=== PATIENT | male | born 1950 | race Caucasian/White ===

== ENCOUNTER → 2016-08-01 | Outpatient (CLI) | payer BC ==
[~2016-08-01] MED LIST: ALBU18002 INH; ALBUAER2 INH; AMLO-114 PO; ASPI-232 PO; ATV/1 PO; BUPR-79 PO; BUPR200T2 PO; CEPH500C2 PO; DRGTP100 TD; DRGTP50 TOP; DRGTP75 TD; FENT50DI19 TOP; FENT75DI2 TOP; FNTTP25 TD; FURO-85 PO; HYDR-5688 PO; HYDR4TAB78 PO; LISI-725 PO; LISI40TA PO; METO-157 PO; MULT-845 PO; OMEP40CA41 PO; OXYC-106 PO; OXYC-57 PO; PRED-301 PO; SPRIN/30 INH; SYMIN160 INH; TIOTCAP INH
[2016-08-01 07:32] LABS: PATIENT HEIGHT 180.3 cm
[2016-08-01 10:11] LABS: BUN/CREATININE RATIO 26.4 (10-20); CALCIUM 8.7 mg/dl (8.5-10.1); CREATININE 0.69 mg/dl (0.60-1.40); PHOSPHORUS 3.9 mg/dl (2.5-4.9); POTASSIUM 4.3 mmol/L (3.5-5.1)
[2016-08-01 11:06] LABS: URINE TOTAL PROTEIN CALC 721.5 mg/24 hr (0-149.1)
[2016-08-01 11:07] LABS: CREATININE 0.69 mg/dl (0.6-1.4)
[2016-08-01 15:09] LABS: URINE PROTIEN/CREAT RATIO 0.6 (0-0.2); URINE TOTAL PROTEIN 69.6 mg/dl (0-11.9)
== END ==
LOC: C.LAB 07:12
PROVIDERS: ATTEND Internal Medicine Nephrology
DX: R80.9 Proteinuria, unspecified (principal)

== ENCOUNTER → 2016-08-06 | Outpatient (CLI) | payer BC ==
--- NOTE | 2016-08-08 10:54 | CODING QUERY NO DIAGNOSIS ---
TREATMENT RENDERED WITHOUT A DIAGNOSIS To promote full compliance with coding requirements relating to patient care, physician participation is requested in all cases of senior android developer uncertainty. Please assist us with providing a diagnosis/symptom for the test(s) below: A diagnosis/symptom was not documented on your Order. A valid diagnosis/symptom is required to bill all insurances. Please remember that we are unable to code a diagnosis of rule out, probable, possible, questionable, or suspected. DATE OF SERVICE: 08/06/16 Tests that require a diagnosis: * EGFR MUTATION ALALYSIS DIAGNOSIS: * FISH MULTIPLEX MANUAL DIAGNOSIS: * FISH MULTIPLEX MANUAL DIAGNOSIS: * ONE IHC STAIN QUANT OR SEMI DIAGNOSIS: Provider Signature: Date: Thank you Cammy Resendiz [facility] Information Management Once completed, please kindly fax back to [phone] For questions please call [phone]
== END | disposition home or self-care (01) ==
LOC: C.PATHSPEC 10:00
PROVIDERS: ATTEND Internal Medicine Hematology & Oncology
DX: C34.90 Malignant neoplasm of unspecified part of unspecified bronchus or lung (principal)

== ENCOUNTER → 2016-08-28 | Outpatient (CLI) | payer BC ==
[2016-08-28 15:01] LABS: URINE APPEARANCE CLEAR (CLEAR); URINE BILIRUBIN NEG (NEG); URINE COLOR YELLOW; URINE NITRITE NEG (NEG); URINE SPECIFIC GRAVITY 1.025 (1.000-1.030); UROBILINOGEN NEG (NEG)
[2016-08-28 15:10] LABS: URINE PROTIEN/CREAT RATIO 0.2 (0-0.2); URINE TOTAL PROTEIN 36.3 mg/dl (0-11.9)
[2016-08-28 15:11] LABS: MANUAL MICROSCOPIC REQUIRED? NO; REVIEW REQ? NO
[2016-08-28 15:22] LABS: BLOOD UREA NITROGEN 19 mg/dl (7-18); BUN/CREATININE RATIO 23.2 (10-20); CALCIUM 8.5 mg/dl (8.5-10.1); CARBON DIOXIDE 31 mmol/L (21-32); CHLORIDE 107 mmol/L (98-107); CREATININE 0.84 mg/dl (0.60-1.40); GLUCOSE 98 mg/dl (70-99); PHOSPHORUS 3.6 mg/dl (2.5-4.9); POTASSIUM 4.2 mmol/L (3.5-5.1); SODIUM 143 mmol/L (136-145)
== END | disposition home or self-care (01) ==
LOC: C.LAB 13:24
PROVIDERS: ATTEND Internal Medicine Nephrology
DX: R80.9 Proteinuria, unspecified (principal)

== ENCOUNTER → 2016-09-11 | Outpatient (CLI) | payer BC ==
[2016-09-11 17:32] LABS: BLOOD UREA NITROGEN 17 mg/dl (7-18); BUN/CREATININE RATIO 23.9 (10-20); CALCIUM 8.5 mg/dl (8.5-10.1); CARBON DIOXIDE 29 mmol/L (21-32); CHLORIDE 107 mmol/L (98-107); CREATININE 0.73 mg/dl (0.60-1.40); GLUCOSE 85 mg/dl (70-99); POTASSIUM 3.9 mmol/L (3.5-5.1); SODIUM 143 mmol/L (136-145)
== END | disposition home or self-care (01) ==
LOC: C.CPL 15:17
PROVIDERS: ATTEND Surgery
DX: K40.90 Unilateral inguinal hernia, without obstruction or gangrene, not specified as recurrent (principal)

== ENCOUNTER → 2016-09-25 | Day surgery (SDC) | payer BC ==
[2016-09-13 12:01] VITALS: Ht 180.3 cm; Wt 87.3 kg
--- NOTE | 2016-09-24 08:48 | PAT Medication Instructions ---
Service Date Sep 24, 2016. Current Home Medication List Albuterol (Ventolin), 2 PUFFS INH QID Aspirin (Aspir-81), 1 TAB PO QAM Budesonide/Formoterol Fumarate (Symbicort 160/4.5 Inhaler), 2 PUFFS INH BID Bupropion (Wellbutrin Sr), 200 MG PO AM Bupropion (Wellbutrin Sr), 150 MG PO NOON Fentanyl (Fentanyl), 1 PATCH TOP Q3D Furosemide (Lasix), 20 MG PO QAM Lisinopril (Zestril), 60 MG PO QAM Multiple Vitamins W/ Minerals (Centrum Silver Adult 50+), 1 TAB PO QAM Oxycodone/Acetaminophen 5MG/325MG (Percocet 5MG/325MG), 1 TABLET PO QID PRN for Pain Tiotropium Lizella (Spiriva Handihaler), 1 CAP INH QAM Medication Instructions For Your Scheduled Surgery - Check with surgeon for instructions: Aspirin (Aspir-81), 1 TAB PO QAM - Hold the following medications the morning of surgery: Multiple Vitamins W/ Minerals (Centrum Silver Adult 50+), 1 TAB PO QAM Furosemide (Lasix), 20 MG PO QAM Lisinopril (Zestril), 60 MG PO QAM - Take the following medications the morning of surgery with a sip of water: Tiotropium Lizella (Spiriva Handihaler), 1 CAP INH QAM Albuterol (Ventolin), 2 PUFFS INH QID (bring with you to hospital AM of surgery) Budesonide/Formoterol Fumarate (Symbicort 160/4.5 Inhaler), 2 PUFFS INH BID Bupropion (Wellbutrin Sr), 200 MG PO AM Fentanyl (Fentanyl), 1 PATCH TOP Q3D (avoid surgery site location for patch placement) Oxycodone/Acetaminophen 5MG/325MG (Percocet 5MG/325MG), 1 TABLET PO QID PRN for Pain (okay to take up to take up 4 hours prior to surgery if needed) - Take the following medications as scheduled the night before surgery: Bupropion (Wellbutrin Sr), 150 MG PO NOON Albuterol (Ventolin), 2 PUFFS INH QID Budesonide/Formoterol Fumarate (Symbicort 160/4.5 Inhaler), 2 PUFFS INH BID Fentanyl (Fentanyl), 1 PATCH TOP Q3D Oxycodone/Acetaminophen 5MG/325MG (Percocet 5MG/325MG), 1 TABLET PO QID PRN for Pain (if needed) If you have any questions please call us at [phone] or [phone] or [phone]
[2016-09-24 10:53] LABS: HEMATOCRIT 36.4 % (42-52); MEAN CELL VOLUME 90.8 fL (80-100); MEAN CORPUSCULAR HEMOGLOBIN 29.4 pg (25-34); MEAN CORPUSCULAR HGB CONC 32.4 g/dl (32-36); MEAN PLATELET VOLUME 9.2 fL (7.4-10.4); PLATELET COUNT 146 K/uL (130-400); RED BLOOD COUNT 4.01 M/uL (4.7-6.1); WHITE BLOOD COUNT 4.39 K/uL (4.8-10.8)
[~2016-09-25] VITALS: Ht 180.3 cm; Wt 87.3 kg
[~2016-09-25] MED LIST changes: -AMLO-114 PO; +ATROPINE SULFATE 0.1 MG/ML 5ML SYR IV PRN; +BUPIVACAINE 0.5 % 5 MG/1 ML MPF 30ML VIAL ONE; +CEFAZOLIN 2000 MG/60 ML D5W IV SCH; +CEFAZOLIN SOD 1 GM VIAL ONE; +DEXAMETHASONE SOD INJ 4 MG/ML VIAL ONE; +EpHEDrine SULFATE INJ 50 MG/ML AMP IV PRN; +FENTANYL CITRATE INJ 50 MCG/1 ML 2 ML VIAL ONE; +FLUMAZENIL 0.1 MG/1 ML 10 ML VIAL IV PRN; +GLYCOPYRROLATE INJ 0.2 MG/ML VIAL ONE; +HYDROCODONE/ACETAMOPHEN 5/325MG TAB PO PRN; +HYDROmorphone INJ 1 MG/ML SYR IV PRN; +KETOROLAC TROMETHAMINE 30 MG/ML VIAL ONE; +LABETALOL HCL IV 5 MG/ML 20ML IV PRN; +LACTATED RINGER'S 1000ML 1,000 ML IV SCH; +LIDOCAINE HCL 2% 2 ML VIAL (20MG/ML) ONE; -LISI-725 PO; +MIDAZOLAM HCL 1 MG/ML 2ML VIAL ONE; +NALOXONE HCL 0.4 MG/1 ML VIAL/CARP IV PRN; +NEOSTIGMINE METHYLSULFATE 5 MG/5 ML SYR ONE; +ONDANSETRON INJ 2 MG/ML 2 ML VIAL IV PRN; +ONDANSETRON INJ 2 MG/ML 2 ML VIAL ONE; +PROMETHAZINE HCL INJ 12.5 MG in SODIUM CHLORIDE 0.9% 50ML 50 ML IV PRN; +PROPOFOL IV EMULSION 10 MG/ML 20 ML VIAL IV ONE; +ROCURONIUM BROMIDE 10 MG/ML 5 ML VIAL ONE; +SODIUM CHLORIDE 0.9% 1000ML 1,000 ML IV SCH; +SODIUM CHLORIDE 0.9% INJ 10 ML VIAL ONE; +SUCCINYLCHOLINE CHLORIDE 20 MG/ML 10 ML VIAL IV ONE
--- NOTE | 2016-09-25 11:59 | History & Physical Bridge Note ---
H&P Re-Evaluation Bridge Note: I have examined the patient, reviewed the History & Physical and in the interval since the performance of the History & Physical I have noted the following changes of clinical significance: No changes noted
--- NOTE | 2016-09-25 13:07 | Discharge Instructions-SurgCtr ---
Discharge Instructions Date of Service Sep 25, 2016. Visit Reason for Visit: Right Inguinal Hernia Discharge Discharge Diagnosis / Problem: Rt inguinal hernia Discharge Goals Goal(s): Decrease discomfort, Improve function, Improve disease control Activity Recommendations Activity Limitations: as noted below Exercise/Sports Limitations: until after follow-up appointment May Resume Sexual Activity: when tolerated Shower/Bathe: keep incision dry (may shower over incision in 2 days- 09/27) Driving or Machine Use: resume 3 days after discharge SPECIAL CARE INSTRUCTIONS: * Cover incisions and change daily for comfort/drainage. * Leave steri strips in place * May use ibuprofen for pain as tolerated. * Expect some swelling and bruising. Call your doctor if: * Temperature above 101 degrees * Pain not relieved by pain medicine ordered * There is increased drainage or redness from any incision * You have any unanswered questions or concerns [phone]. FOLLOW UP VISIT: If not already scheduled, please call the office for a follow-up visit. for next week- check up and some suture removal OFFICE PHONE NUMBER: Dr. Burris Office Anesthesia . Post Anesthesia Instructions: If you have had General Anesthesia or IV Sedation: * Do not drive today. * Resume driving when surgeon permits. * Do not make important decisions or sign legal documents today. * Call surgeon for: 1. Temperature elevations greater than 101 degrees F. 2. Uncontrollable pain. 3. Excessive bleeding. 4. Persistent nausea and vomiting. 5. Medication intolerance (nausea, vomiting or rash). * For nausea and vomiting use only clear liquids such as: tea, soda, bouillon until nausea subsides, then gradually increase diet as tolerated. * If you have any concerns or questions, call your surgeon's office. If physician is unavailable and it is an emergency, call 911 or go to the nearest emergency room. . Diet Recommendations Home Diet: resume previous diet Pending Studies Studies pending at discharge: no Medical Emergencies . Who to Call and When: Medical Emergencies: If at any time you feel your situation is an emergency, please call 911 immediately. . Non-Emergent Contact Non-Emergency issues call your: Primary Care Provider, Surgeon . . "Provider Documentation" section prepared by Tylor Burris. .
--- NOTE | 2016-09-25 14:21 | [facility] Post Operative Brief Note ---
Immediate Operative Summary Operative Date Sep 25, 2016. Pre-Operative Diagnosis Right Inguinal Hernia Post-Operative Diagnosis same Procedure(s) Performed Right Inguinal Hernia Open Repair with Mesh Surgeon Dr. Kristina Burris Manager Sterile Surgeon(s) Clarissa Mcgovern PA-C, Elvira Hamilton, ALONSOII Estimated Blood Loss 20CC Findings indirect Rt inguinal hernia Specimens none Anesthesia gen Complication(s) None Disposition Recovery Room / PACU
[2016-09-25] MEDS: FENTANYL CITRATE INJ 50 MCG/1 ML 2 ML VIAL IV PRN ×4 (14:47→15:07)
[2016-09-25 15:32] VITALS: TEMP 36.9
--- NOTE | 2016-09-25 15:44 | Anesthesia Progress Nt - [facility] ---
Anesthesia Post Op Note Date & Time Sep 25, 2016 at 15:43 Vital Signs Pain Intensity: 6.0 Vital Signs Past 12 Hours Date Time Temp Pulse Resp B/P (MAP) Pulse Ox O2 Delivery O2 Flow Rate FiO2 09/25/16 15:32 36.9 75 16 158/84 (108) 95 Room Air 09/25/16 15:18 69 7 100 09/25/16 15:18 69 7 09/25/16 15:17 148/80 09/25/16 15:16 36.8 68 12 148/80 99 Room Air 09/25/16 15:13 63 9 09/25/16 15:13 63 9 97 09/25/16 15:12 154/81 09/25/16 15:08 65 3 09/25/16 15:08 65 3 98 09/25/16 15:07 166/82 09/25/16 15:03 65 3 98 09/25/16 15:03 65 3 09/25/16 15:02 151/83 09/25/16 14:58 65 3 100 09/25/16 14:58 65 3 09/25/16 14:57 161/85 09/25/16 14:53 66 15 09/25/16 14:53 66 15 100 09/25/16 14:52 153/80 09/25/16 14:48 70 15 09/25/16 14:48 70 15 100 09/25/16 14:47 146/73 09/25/16 14:43 67 20 100 09/25/16 14:43 67 20 09/25/16 14:42 157/79 09/25/16 14:38 70 14 09/25/16 14:38 70 14 100 09/25/16 14:37 155/82 09/25/16 14:33 76 12 09/25/16 14:33 76 12 100 09/25/16 14:32 140/76 09/25/16 14:29 139/75 09/25/16 14:28 86 09/25/16 14:28 36.7 85 16 139/75 100 Mask 6 09/25/16 14:28 86 99 09/25/16 11:40 36.7 74 18 148/85 (106) 95 Room Air Notes Mental Status: alert / awake / arousable, participated in evaluation Pt Amnestic to Procedure: Yes Nausea / Vomiting: adequately controlled Pain: adequately controlled Airway Patency, RR, SpO2: stable & adequate BP & HR: stable & adequate Hydration State: stable & adequate Anesthetic Complications: no major complications apparent
[2016-09-25 15:45] VITALS: BP 165/90; PULSE 76; O2SAT 96
--- NOTE | 2016-09-25 16:18 | OPERATIVE REPORT ---
DATE OF OPERATION: 09/25/2016 PREOPERATIVE DIAGNOSIS: Right inguinal hernia. POSTOPERATIVE DIAGNOSIS: Same. NAME OF OPERATION: Open right inguinal hernia repair. STAFF SURGEON: Dr. Burris. ANESTHESIA: General. OPERATION AND FINDINGS: PROCEDURE: The patient was brought in the operating room and placed on the operating table in supine position. Right lower quadrant prepped and draped in the usual fashion. 0.5% plain Marcaine was used to anesthetize the skin and subcutaneous tissue. Incision made parallel to the inguinal ligament, carrying dissection down identifying the external oblique fibers incising them along their length to the external ring. Cord structures then mobilized. The patient had a large indirect hernia sac which was reduced. He had a small lipoma of the cord which was excised. The internal ring was then reinforced using a large mesh plug, secured to surrounding tissues using 2-0 Ethibond suture, then a mesh patch placed over the plug and around the cord structures secured to surrounding tissue using 2-0 Ethibond suture. The external oblique fibers were then closed around the cord structures over the mesh using 2-0 Ethibond suture. I was able to identify the ilioinguinal and iliohypogastric nerves. The site was anesthetized using 0.5% plain Marcaine and irrigated with antibiotic solution. Subcutaneous tissue was reapproximated using 2-0 plain catgut suture then the skin reapproximated using 4-0 nylon suture and Steri-Strips. The patient was transferred to recovery room in stable condition. I attest to the content of the Intraoperative Record and any orders documented therein. Any exception s are noted below.
== END | disposition home or self-care (01) ==
LOC: X.SURG 11:15
PROVIDERS: ATTEND Surgery
DX: K40.90 Unilateral inguinal hernia, without obstruction or gangrene, not specified as recurrent (principal); Z85.118 Personal history of other malignant neoplasm of bronchus and lung; I10 Essential (primary) hypertension; J44.9 Chronic obstructive pulmonary disease, unspecified; F32.9 Major depressive disorder, single episode, unspecified; F41.9 Anxiety disorder, unspecified; G47.33 Obstructive sleep apnea (adult) (pediatric); J45.909 Unspecified asthma, uncomplicated; Z90.89 Acquired absence of other organs; Z98.890 Other specified postprocedural states; Z79.82 Long term (current) use of aspirin; Z79.899 Other long term (current) drug therapy; Z87.891 Personal history of nicotine dependence; Z68.28 Body mass index [BMI] 28.0-28.9, adult; Z82.49 Family history of ischemic heart disease and other diseases of the circulatory system; Z83.3 Family history of diabetes mellitus

== ENCOUNTER → 2016-10-03 | Outpatient (CLI) | payer BC ==
[~2016-10-03] MED LIST changes: -ATROPINE SULFATE 0.1 MG/ML 5ML SYR IV PRN; -BUPIVACAINE 0.5 % 5 MG/1 ML MPF 30ML VIAL ONE; -CEFAZOLIN 2000 MG/60 ML D5W IV SCH; -CEFAZOLIN SOD 1 GM VIAL ONE; -DEXAMETHASONE SOD INJ 4 MG/ML VIAL ONE; -EpHEDrine SULFATE INJ 50 MG/ML AMP IV PRN; -FENTANYL CITRATE INJ 50 MCG/1 ML 2 ML VIAL ONE; -FLUMAZENIL 0.1 MG/1 ML 10 ML VIAL IV PRN; -GLYCOPYRROLATE INJ 0.2 MG/ML VIAL ONE; -HYDROCODONE/ACETAMOPHEN 5/325MG TAB PO PRN; -HYDROmorphone INJ 1 MG/ML SYR IV PRN; -KETOROLAC TROMETHAMINE 30 MG/ML VIAL ONE; -LABETALOL HCL IV 5 MG/ML 20ML IV PRN; -LACTATED RINGER'S 1000ML 1,000 ML IV SCH; -LIDOCAINE HCL 2% 2 ML VIAL (20MG/ML) ONE; -MIDAZOLAM HCL 1 MG/ML 2ML VIAL ONE; -NALOXONE HCL 0.4 MG/1 ML VIAL/CARP IV PRN; -NEOSTIGMINE METHYLSULFATE 5 MG/5 ML SYR ONE; -ONDANSETRON INJ 2 MG/ML 2 ML VIAL IV PRN; -ONDANSETRON INJ 2 MG/ML 2 ML VIAL ONE; -PROMETHAZINE HCL INJ 12.5 MG in SODIUM CHLORIDE 0.9% 50ML 50 ML IV PRN; -PROPOFOL IV EMULSION 10 MG/ML 20 ML VIAL IV ONE; -ROCURONIUM BROMIDE 10 MG/ML 5 ML VIAL ONE; -SODIUM CHLORIDE 0.9% 1000ML 1,000 ML IV SCH; -SODIUM CHLORIDE 0.9% INJ 10 ML VIAL ONE; -SUCCINYLCHOLINE CHLORIDE 20 MG/ML 10 ML VIAL IV ONE
--- NOTE | 2016-10-03 12:46 | DIAGNOSTIC IMAGING REPORT ---
PET/CT CLINICAL HISTORY: Non-small cell lung cancer. TECHNIQUE: A PET/CT was performed from the skull base through the upper thighs following intravenous injection of 14.67 mCi of F 18 FDG IV. The injection was performed at 8:59 AM on October 03, 2016 and imaging began at 10:00 AM on October 03, 2016. Unenhanced CT was performed for attenuation correction purposes and anatomic localization. COMPARISON STUDY: PET/CT April 09, [address] November 29, 2015. FINDINGS: Head and neck: There is multifocal muscular uptake within the neck. Several mildly enlarged left lower cervical lymph nodes have increased in size since exam of April 09, 2016. An index 1.3 cm left lower cervical node shown image 44 has mild FDG uptake. The SUV max is 4.1. Chest: The previously described mass within the anterior aspect of the left upper lobe has significantly increased in size since exam April 09, 2016. The mass now measures 2.9 x 2 cm and has an SUV max of 6.4. Several satellite nodules within the left upper lobe measuring up to 8 mm have developed. There is a new 7 mm left lower lobe nodule shown image 92. The findings reflect progression of malignancy. There is a 9 mm endobronchial abnormality at the masoud with no significant FDG uptake. There is no pneumothorax. There is no pleural effusion. The heart is moderately enlarged. Dilatation of the ascending aorta, measuring 4.3 cm is unchanged. Several prevascular lymph nodes have slightly increased in size. These measure up to 9 mm and have mild FDG uptake. Mild left pleural thickening is noted with minimal FDG uptake. Abdomen and Pelvis: No suspicious FDG uptake is identified within the abdomen or the pelvis. There is no abdominal or pelvic lymphadenopathy. The gallbladder is distended. This is unchanged. There are postsurgical findings consistent with a right inguinal hernia repair with suspected mesh. Mild FDG uptake is noted within SUV max of 2.8. Musculoskeletal: There is been interval development of a 2.5 cm lytic lesion within the right humeral head. Evidence for a previous right rotator cuff repair is noted. There is marked associated FDG uptake with an SUV max of 8.3. In addition, there is moderate FDG uptake within the left aspect of C7 with an SUV max of 5.3. There is corresponding sclerosis on the CT. There is also moderate FDG uptake within the right aspect of the C6 vertebral body with an SUV max of 4.8. This has developed since prior exam. IMPRESSION: 1. Findings consistent with extensive recurrent malignancy since PET/CT of April 09, 2016. Increase in size of a 3.5 cm left upper lobe mass with development of multiple small pulmonary metastases. Development of left lower cervical and prevascular pathologic lymphadenopathy. 2. Interval development of several FDG avid skeletal lesions involving the right humeral head and lower cervical spine consistent with skeletal metastases. 3. Findings consistent with recent right inguinal hernia repair. Electronically signed by: Jasbir Rivera M.D. 10/03/2016 12:45 PM Dictated Date/Time: 10/03/2016 11:34 AM
== END | disposition home or self-care (01) ==
LOC: C.PET 08:23
PROVIDERS: ATTEND Internal Medicine Hematology & Oncology
DX: C34.90 Malignant neoplasm of unspecified part of unspecified bronchus or lung (principal); R59.0 Localized enlarged lymph nodes; R93.7 Abnormal findings on diagnostic imaging of other parts of musculoskeletal system

== ENCOUNTER → 2016-10-08 | Outpatient (CLI) | payer BC ==
[~2016-10-08] MED LIST changes: +OPTIRAY 320 IV PRN
--- NOTE | 2016-10-08 09:45 | DIAGNOSTIC IMAGING REPORT ---
CT SCAN OF THE CHEST WITH IV CONTRAST CLINICAL HISTORY: Follow-up lung cancer. COMPARISON STUDY: Chest CT scans dated 11/29/2015 and 06/30/2015. PET/CT dated 10/03/2006. TECHNIQUE: Following the IV administration of 118 cc of Optiray 320, CT scan of the thorax was performed from the thoracic inlet to the upper abdomen. Images are reviewed in the axial, sagittal, and coronal planes. IV contrast was administered without complication. CT DOSE: 935.08 mGy.cm FINDINGS: Thyroid: Imaged portions of the thyroid gland are normal in size and attenuation. Thoracic aorta: There is atherosclerotic calcification of the thoracic aorta, which is normal in caliber and demonstrates standard 3-vessel arch anatomy. No dissection is seen. A right subclavian central venous infusion port is in place. Pulmonary vasculature: The pulmonary trunk is dilated, measuring 4.5 cm in diameter. This indication pulmonary artery hypertension. There are no filling defects identified in the central pulmonary vessels to indicate pulmonary embolus. Note that this examination was not protocoled for evaluation of the pulmonary arteries. Heart: The heart is top normal in size and without pericardial effusion. Coronary arteries are densely calcified. Lungs and pleural spaces: The trachea and central airways are clear. Emphysema is noted. No airspace consolidation is seen typical for pneumonia and there is no pleural effusion. There are postoperative changes from left lower lobe resection elevation of the left hemidiaphragm and scarring at the left lung base. An anterior paramediastinal lesion in the left upper lobe measures 4.3 x 2.1 cm as seen on image #102. An additional 1.2 cm left upper lobe nodule is seen on image #87. A 9 mm pleural-based nodule at the posterior left lung base as seen on image #177. No right sided lesions are identified, Mediastinum: There are enlarged prevascular lymph nodes. Largest is seen on image #103, measuring 1.3 cm in short axis. Tamiko: Clear. Axillae: There is no axillary lymphadenopathy. Upper abdomen: There is a tiny hiatal hernia. Partially visualized upper abdominal viscera is within normal limits. See report of abdominal CT performed concurrently for detailed intra-abdominal findings. Skeletal structures: The skeletal structures are osteopenic. No lytic or blastic bony lesions are seen. IMPRESSION: 1. Emphysema with postoperative change from left-sided pulmonary resection. 2. Again seen is a left upper lobe paramediastinal mass lesion, with additional nodules in the left upper lobe and at the posterior left lung base. This is consistent with recurrent/metastatic disease and has not significantly changed from the PET/CT performed 5 days previously. 3. Mediastinal lymphadenopathy is unchanged and consistent with metastatic disease. 4. No airspace consolidation is seen typical for pneumonia and there is no pleural effusion. 5. Findings are consistent with pulmonary artery hypertension. 6. Additional changes as above. Electronically signed by: Boone Cavazos M.D. 10/08/2016 9:44 AM Dictated Date/Time: 10/08/2016 9:24 AM
--- NOTE | 2016-10-08 09:48 | DIAGNOSTIC IMAGING REPORT ---
ABDOMEN AND PELVIS CT WITH IV AND ORAL CONTRAST CT DOSE: HISTORY: Small cell lung cancer. TECHNIQUE: Multiaxial CT images of the abdomen and pelvis were performed following the use of intravenous and oral contrast. COMPARISON STUDY: Abdomen and pelvis CT 06/17/2015. PET CT 10/03/2016. FINDINGS: The gallbladder remains mildly distended. No evidence of a prior right inguinal hernia repair, unchanged. Left lower lobe basilar nodules are better present the same day chest CT. Mild elevation the left hemidiaphragm. No suspicious lytic or blastic osseous lesions. No hepatic or splenic masses. Stable mild nodular thickening of the left adrenal gland. Normal right adrenal gland. The kidneys enhance normally. No hydronephrosis. Normal pancreas. No retroperitoneal or mesenteric lymphadenopathy. The bladder is mildly distended. The prostate gland is mildly enlarged. No bowel wall thickening or obstruction. A few colonic diverticula. Moderate stool within the colon. IMPRESSION: 1. No evidence for metastatic disease within the abdomen or pelvis. 2. Left lung nodules are better appreciated on the same day chest CT. 3. Distended gallbladder, unchanged. Electronically signed by: Fabien Adames M.D. 10/08/2016 9:47 AM Dictated Date/Time: 10/08/2016 9:32 AM
== END | disposition home or self-care (01) ==
LOC: C.CTS 08:25
PROVIDERS: ATTEND Internal Medicine Hematology & Oncology
DX: C34.90 Malignant neoplasm of unspecified part of unspecified bronchus or lung (principal); R91.8 Other nonspecific abnormal finding of lung field; K82.8 Other specified diseases of gallbladder; J43.9 Emphysema, unspecified; R59.1 Generalized enlarged lymph nodes

== ENCOUNTER 2016-12-09 12:06 | Inpatient (IN) | payer BC ==
[~2016-12-09] VITALS: Ht 180.3 cm; Wt 91.6 kg
[~2016-12-09 12:06] MED LIST changes: -ALBU18002 INH; -ATV/1 PO; -CEPH500C2 PO; -DRGTP100 TD; -DRGTP50 TOP; -DRGTP75 TD; -FENT50DI19 TOP; -FNTTP25 TD; -HYDR-5688 PO; -HYDR4TAB78 PO; -METO-157 PO; -OMEP40CA41 PO; -OPTIRAY 320 IV PRN; -OXYC-57 PO; -PRED-301 PO; -SPRIN/30 INH
[2016-12-09] MEDS ORDERED: SODIUM CHLORIDE 0.9% 1000ML 1,000 ML IV ONE (12:52)
--- NOTE | 2016-12-09 13:04 | EMERGENCY ROOM VISIT NOTE ---
History Report prepared by [facility]: Caitlin Godoy Under the Supervision of: Dr. Nikos Babin D.O. First contact with patient: 12:41 Chief Complaint: FEVER Stated Complaint: FEVER,CHILLS,ACHES,ANKLE/FEET SWELLING, RASH History of Present Illness The patient is a 66 year old male who presents to the Emergency Room with complaints of a constant fever beginning 2 days ago. The patient states that 2 days ago he developed a fever of 100.4 and notes that he had chills and body aches. He reports that he has a history of lung cancer and is currently being treated with chemotherapy. He notes that he has been having shortness of breath , productive cough, and ankle swelling that developed after his last chemotherapy treatment 10 days ago. The patient states that he has a rash over the left shoulder from his radiation treatment. He denies any diarrhea, hematochezia, and sick contacts. The patient's notes that his temperature was 99.7 this morning. Source of History: patient Onset: 2 days ago Position: other (global) Quality: other (fever) Timing: constant Associated Symptoms: + cough, + SOB, + rash, No diarrhea Note: Pt notes ankle swelling that developed after his last chemotherapy treatment 10 days ago. He denies any hematochezia, and sick contacts. Review of Systems See HPI for pertinent positives & negatives. A total of 10 systems reviewed and were otherwise negative. Past Medical & Surgical Medical Problems: (1) Depression (2) Elevated troponin (3) Lung mass (4) Shortness of breath Family History FH: diabetes mellitus FH: heart disease Gallbladder disease Social History Smoking Status: Former Smoker Alcohol Use: occasionally Marital Status: Housing Status: lives with family Current/Historical Medications Scheduled Aspirin (Aspir-81), 1 TAB PO QAM Budesonide/Formoterol Fumarate (Symbicort 160/4.5 Inhaler), 2 PUFFS INH BID Bupropion (Wellbutrin Sr), 200 MG PO AM Bupropion (Wellbutrin Sr), 150 MG PO NOON Fentanyl (Fentanyl), 1 PATCH TD Q3D Fentanyl (Fentanyl), 1 PATCH TD Q3D Furosemide (Lasix), 20 MG PO QAM Lisinopril (Zestril), 60 MG PO QAM Multiple Vitamins W/ Minerals (Centrum Silver Adult 50+), 1 TAB PO QAM Oxycodone/Acetaminophen 10MG/325MG (Percocet 10MG/325MG), 1 TAB PO Q6H Tiotropium [place] (Spiriva Handihaler), 1 CAP INH DAILY Scheduled PRN Albuterol Sulfate (Proair Respiclick), 1 PUFF INH QID PRN for SOB/Wheezing Allergies Coded Allergies: Iodinated Diagnostic Agents (Verified Adverse Reaction, Intermediate, Muscle cramping - cardiac stress test dye, 12/09/16) Physical Exam Vital Signs Date Time Temp Pulse Resp B/P (MAP) Pulse Ox O2 Delivery O2 Flow Rate FiO2 12/09/16 16:09 82 17 116/58 93 Room Air 12/09/16 15:26 85 20 148/58 12/09/16 14:08 87 12/09/16 14:05 88 21 133/74 96 Room Air 12/09/16 13:12 Room Air 12/09/16 12:07 37.0 92 20 114/74 95 Physical Exam GENERAL: Patient is awake, alert, and in no acute distress. Patient is resting comfortably and showing no signs of anxiety EYES: The conjunctivae are clear. The pupils are round and reactive. EARS, NOSE, MOUTH AND THROAT: The nose is without any evidence of any deformity. Mucous membranes are moist tongue is midline NECK: The neck is nontender and supple. RESPIRATORY: Diminished breath sounds throughout, scattered rhonchi, absent breath sounds in the left base, mild tachypnea. CARDIOVASCULAR: Regular rate and rhythm noted there no murmurs rubs or gallops normal S1 normal S2 GASTROINTESTINAL: The abdomen is soft. Bowel sounds are present in all quadrants. Abdomen is nontender MUSCULOSKELETAL/EXTREMITIES: There is no evidence of gross deformity full range of motion is noted in the hips and shoulders SKIN: There is no obvious evidence of any rash. There are no petechiae, pallor or cyanosis noted. Pedal edema bilaterally, erythema to the anterior left shoulder that extends over the right chest wall Mediport. NEUROLOGIC: Patient is awake alert and oriented x3 Medical Decision & Procedures ER Provider Diagnostic Interpretation: X-ray results as stated below per interpretation by me and the radiologist. SINGLE VIEW CHEST FINDINGS: An AP, portable, upright chest radiograph is compared to study dated 08/25/2015 and correlated with chest CT dated 10/08/2016. The examination is degraded by portable technique and patient rotation. A right subclavian central venous infusion port is unchanged in position. The heart is top normal for projection. The pulmonary vasculature is noncongested. Emphysema and chronic interstitial thickening are again noted. Findings consistent with left-sided pulmonary resection. There is associated chronic elevation of left hemidiaphragm with left basilar scarring. This is similar to previous. A left suprahilar mass lesion is unchanged from previous. There is no evidence of superimposed airspace consolidation or pleural effusion. No pneumothorax is seen. The skeletal structures are osteopenic. The bony thorax is grossly intact. IMPRESSION: 1. No acute cardiopulmonary abnormality. 2. Emphysema, a left suprahilar pulmonary mass, postoperative change, and chronic change at the left lung base are similar to previous.. Electronically signed by: Boone Cavazos M.D. 12/09/2016 1:24 PM Dictated Date/Time: 12/09/2016 1:21 PM Laboratory Results 12/09/16 13:52 Red Blood Count 3.58, Mean Corpuscular Volume 91.3, Mean Corpuscular Hemoglobin 29.1, Mean Corpuscular Hemoglobin Concent 31.8, Mean Platelet Volume 8.7, Neutrophils (%) (Auto) 82.2, Lymphocytes (%) (Auto) 8.0, Monocytes (%) (Auto) 7.6, Eosinophils (%) (Auto) 1.6, Basophils (%) (Auto) 0.2, Neutrophils # (Auto) 3.99, Lymphocytes # (Auto) 0.39, Monocytes # (Auto) 0.37, Eosinophils # (Auto) 0.08, Basophils # (Auto) 0.01 12/09/16 13:52 Test 12/09/16 13:43 12/09/16 13:52 12/09/16 14:00 12/09/16 15:20 Venous Blood pH 7.42 (7.36-7.41) Venous Blood Partial Pressure CO2 50 mmHg (38.0-50.0) Venous Blood Partial Pressure O2 17 mmHg Venous Blood HCO3 32 mmol/L Venous Blood Oxygen Saturation < 60.0 % Venous Blood Base Excess 6.4 mEq/L White Blood Count 4.86 K/uL (4.8-10.8) Red Blood Count 3.58 M/uL (4.7-6.1) Hemoglobin 10.4 g/dL (14.0-18.0) Hematocrit 32.7 % (42-52) Mean Corpuscular Volume 91.3 fL (80-100) Mean Corpuscular Hemoglobin 29.1 pg (25-34) Mean Corpuscular Hemoglobin Concent 31.8 g/dl (32-36) Platelet Count 171 K/uL (130-400) Mean Platelet Volume 8.7 fL (7.4-10.4) Neutrophils (%) (Auto) 82.2 % Lymphocytes (%) (Auto) 8.0 % Monocytes (%) (Auto) 7.6 % Eosinophils (%) (Auto) 1.6 % Basophils (%) (Auto) 0.2 % Neutrophils # (Auto) 3.99 K/uL (1.4-6.5) Lymphocytes # (Auto) 0.39 K/uL (1.2-3.4) Monocytes # (Auto) 0.37 K/uL (0.11-0.59) Eosinophils # (Auto) 0.08 K/uL (0-0.5) Basophils # (Auto) 0.01 K/uL (0-0.2) RDW Standard Deviation 51.7 fL (36.4-46.3) RDW Coefficient of Variation 15.4 % (11.5-14.5) Immature Granulocyte % (Auto) 0.4 % Immature Granulocyte # (Auto) 0.02 K/uL (0.00-0.02) Erythrocyte Sedimentation Rate 27 mm/hr (0-14) Prothrombin Time 11.4 SECONDS (9.0-12.0) Prothromb Time International Ratio 1.1 (0.9-1.1) Activated Partial Thromboplast Time 29.2 SECONDS (21.0-31.0) Partial Thromboplastin Ratio 1.1 Anion Gap 6.0 mmol/L (3-11) Est Creatinine Clear Calc Drug Dose 108.8 ml/min Estimated GFR () 113.6 Estimated GFR (Non- 98.0 BUN/Creatinine Ratio 19.3 (10-20) Calcium Level 8.6 mg/dl (8.5-10.1) Magnesium Level 2.0 mg/dl (1.8-2.4) Total Bilirubin 0.3 mg/dl (0.2-1) Aspartate Amino Transf (AST/SGOT) 18 U/L (15-37) Alanine Aminotransferase (ALT/SGPT) 20 U/L (12-78) Alkaline Phosphatase 77 U/L (45-117) Total Creatine Kinase 179 U/L (39-308) Creatine Kinase MB 13.0 ng/ml (0.5-3.6) Creatine Kinase MB Ratio 7.3 (0-3.0) Troponin I 0.060 ng/ml (0-0.045) C-Reactive Protein 14.40 mg/dl (0-0.29) Total Protein 6.9 gm/dl (6.4-8.2) Albumin 3.1 gm/dl (3.4-5.0) Globulin 3.8 gm/dl (2.5-4.0) Albumin/Globulin Ratio 0.8 (0.9-2) Lipase 51 U/L (73-393) Bedside Lactic Acid Venous 0.84 mmol/L (0.90-1.70) Urine Color YELLOW Urine Appearance CLEAR (CLEAR) Urine pH 6.0 (4.5-7.5) Urine Specific [place] 1.024 (1.000-1.030) Urine Protein NEG (NEG) Urine Glucose (UA) NEG (NEG) Urine Ketones NEG (NEG) Urine Occult Blood NEG (NEG) Urine Nitrite NEG (NEG) Urine Bilirubin NEG (NEG) Urine Urobilinogen NEG (NEG) Urine Leukocyte Esterase NEG (NEG) Urine WBC (Auto) 1-5 /hpf (0-5) Urine RBC (Auto) 0-4 /hpf (0-4) Urine Hyaline Casts (Auto) 1-5 /lpf (0-5) Urine Epithelial Cells (Auto) 0-5 /lpf (0-5) Urine Bacteria (Auto) NEG (NEG) Laboratory results per my review. Medications Administered Medications (Trade) Dose Ordered Sig/Tila Route Start Time Stop Time Status Last Admin Dose Admin Sodium Chloride 1,000 ml @ 999 mls/hr Q1H1M ONCE IV 12/09/16 12:52 12/09/16 13:52 DC 12/09/16 12:52 999 MLS/HR Ceftriaxone Sodium (Rocephin Inj) 1 gm NOW STAT IV 12/09/16 16:45 12/09/16 16:46 DC 12/09/16 17:07 1 GM ECG Indication: weakness Rate (beats per minute): 77 Rhythm: normal sinus Findings: no ectopy, other (no ST segment abnormalities) ED Course 1241: The patient was evaluated in room C2. A complete history and physical examination were performed. 1252: NSS 1,000 ml @ 999 mls/hr IV. 1644: I discussed the patient's case with Dr. Markham of [facility]. The patient will be evaluated for further management. 1645: Rocephin Inj 1gm IV. 1658: Upon reevaluation, the patient is doing well. I discussed results and treatment plan with the patient. He verbalizes agreement and understanding. I spoke with Dr. Markham of the [facility]. The patient will be evaluated for further management and care. Medical Decision Differential diagnosis: Etiologies such as viral syndrome, otitis, pharyngitis, pneumonia, influenza, meningitis, urinary tract infection, sepsis, bacteremia, as well as others were entertained. The patient is a 66-year-old female who presented to the emergency department with a family member for an evaluation of fever and rash over the right chest wall. The patient has an indwelling port for chemotherapy. The erythema appears to extend over this area. He does have a history of radiation to this area but states the symptoms appeared different at this time. The patient was given IV antibiotics IV fluids in the emergency department. I discussed patient's laboratory and radiographic studies with him. No other source for this fever could be found so I do feel this could be consistent with cellulitis. For this reason I discussed his case with the on-call [facility] hospitalist group. They've agreed to evaluate the patient in the emergency department for further management and disposition. Medication Reconcilliation Current Medication List: was personally reviewed by me Blood Pressure Screening Patient's blood pressure: Normal blood pressure Blood pressure disposition: Did not require urgent referral Consults Time Called: 1640 Consulting Physician: Dr. Markham - [facility] Returned Call: 1644 I discussed the patient's case with Dr. Markham of [facility]. The patient will be evaluated for further management. Impression Primary Impression: Fever Additional Impressions: Cellulitis of shoulder cellulitis overlying indwelling port Scribe Attestation The scribe's documentation has been prepared under my direction and personally reviewed by me in its entirety. I confirm that the note above accurately reflects all work, treatment, procedures, and medical decision making performed by me. Departure Information Dispostion Being Evaluated By Hospitalist Referrals Lesa Jimenez D.O. (PCP) Patient Instructions My [facility] Problem Qualifiers
--- NOTE | 2016-12-09 13:26 | DIAGNOSTIC IMAGING REPORT ---
SINGLE VIEW CHEST CLINICAL HISTORY: Sepsis. FINDINGS: An AP, portable, upright chest radiograph is compared to study dated 08/25/2015 and correlated with chest CT dated 10/08/2016. The examination is degraded by portable technique and patient rotation. A right subclavian central venous infusion port is unchanged in position. The heart is top normal for projection. The pulmonary vasculature is noncongested. Emphysema and chronic interstitial thickening are again noted. Findings consistent with left-sided pulmonary resection. There is associated chronic elevation of left hemidiaphragm with left basilar scarring. This is similar to previous. A left suprahilar mass lesion is unchanged from previous. There is no evidence of superimposed airspace consolidation or pleural effusion. No pneumothorax is seen. The skeletal structures are osteopenic. The bony thorax is grossly intact. IMPRESSION: 1. No acute cardiopulmonary abnormality. 2. Emphysema, a left suprahilar pulmonary mass, postoperative change, and chronic change at the left lung base are similar to previous.. Electronically signed by: Boone Cavazos M.D. 12/09/2016 1:24 PM Dictated Date/Time: 12/09/2016 1:21 PM
[2016-12-09] MEDS ORDERED: ALBU18002 INH (13:34)
[2016-12-09] MEDS ORDERED: FNTTP25 TD (13:34)
[2016-12-09] MEDS ORDERED: DRGTP100 TD (13:34)
[2016-12-09] MEDS ORDERED: SPRIN/30 INH (13:34)
[2016-12-09 14:00] LABS: VEN BLOOD GAS BASE EXCESS 6.4 mEq/L; VENOUS BLOOD GAS PCO2 50 mmHg (38.0-50.0); VENOUS BLOOD GAS PO2 17 mmHg
[2016-12-09 14:01] LABS: VEN BLD GAS O2 SATURATION < 60.0 %
[2016-12-09 14:08] LABS: BASO % 0.2 %; BASO ABS # 0.01 K/uL (0-0.2); COMPLETE YES; EOS % 1.6 %; HEMATOCRIT 32.7 % (42-52); IG% 0.4 %; LYMPH ABS # 0.39 K/uL (1.2-3.4); MEAN CELL VOLUME 91.3 fL (80-100); MEAN CORPUSCULAR HEMOGLOBIN 29.1 pg (25-34); MEAN CORPUSCULAR HGB CONC 31.8 g/dl (32-36); MEAN PLATELET VOLUME 8.7 fL (7.4-10.4); MONO % 7.6 %; NEUT % 82.2 %; PLATELET COUNT 171 K/uL (130-400); RED BLOOD COUNT 3.58 M/uL (4.7-6.1); WHITE BLOOD COUNT 4.86 K/uL (4.8-10.8)
[2016-12-09 14:17] LABS: INR 1.1 (0.9-1.1); PARTIAL THROMBOPLASTIN RATIO 1.1; PROTHROMBIN TIME (PATIENT) 11.4 SECONDS (9.0-12.0)
[2016-12-09 14:26] LABS: BUN/CREATININE RATIO 19.3 (10-20); C-REACTIVE PROTEIN 14.4 mg/dl (0-0.29); CALCIUM 8.6 mg/dl (8.5-10.1); CREATININE 0.73 mg/dl (0.60-1.40); POTASSIUM 3.9 mmol/L (3.5-5.1)
[2016-12-09 14:32] LABS: ALB/GLOB RATIO 0.8 (0.9-2); CKMB/CK RATIO 7.3 (0-3.0)
[2016-12-09 16:05] LABS: URINE APPEARANCE CLEAR (CLEAR); URINE BILIRUBIN NEG (NEG); URINE COLOR YELLOW; URINE EPITHELIAL CELL AUTO 0-5 /lpf (0-5); URINE NITRITE NEG (NEG); URINE SPECIFIC GRAVITY 1.024 (1.000-1.030); UROBILINOGEN NEG (NEG); ZZUR CULT IF INDIC CLEAN CATCH NO
[2016-12-09 16:06] LABS: MANUAL MICROSCOPIC REQUIRED? NO; REVIEW REQ? NO
[2016-12-09] MEDS ORDERED: CEFTRIAXONE SOD INJ 1 GM ADDVIAL IV STA (16:45)
[2016-12-09] MEDS ORDERED: MAGNESIUM HYDROXIDE SUSP 30 ML UDC PO PRN (18:15)
[2016-12-09] MEDS ORDERED: ONDANSETRON INJ 2 MG/ML 2 ML VIAL IV PRN (18:15)
[2016-12-09] MEDS ORDERED: ACETAMINOPHEN 325 MG TAB PO PRN (18:15)
[2016-12-09] MEDS ORDERED: ALUMINUM/MAGNESIUM/SIMETH (MAALOX MAX) 30 ML UDC PO PRN (18:15)
[2016-12-09] MEDS ORDERED: OXYCODONE/ACETAMINOPHEN 10/325MG TAB PO PRN (18:15)
[2016-12-09] MEDS ORDERED: ENOXAPARIN 40 MG/0.4 ML SYR SC SCH (18:30)
--- NOTE | 2016-12-09 18:30 | History and Physical ---
History & Physical Date & Time of Service: Dec 09, 2016 at 18:23 Chief Complaint: Fever,Chills,Aches,Ankle/Feet Swelling, Rash Primary Care Physician: Lesa Jimenez D.O. History of Present Illness This patient presents with fevers and not quite feeling well. He is approximately 10 days out from his most recent chemotherapy for when she is being treated for lung cancer. He also has had radiation therapy to his left chest in the area has a port. The patient states that he has had no other symptoms other than some dental work done over the last few days. He's had a cough which is normal for him no increase in productivity. He's had some recent constipation but he takes chronic opiate therapy and his salt this with [id number] stool softeners. He has had no focal abdominal pain no dysuria or urinary frequency has had no other skin rashes or changes. He is overall feels fatigued and had a fever at home. There was some initial concern regarding the area of skin surrounding the a port site this appears to be more like ideation dermatitis than true cellulitis to me. There is no tenderness or fluctuance over the a port site interestingly though the patient was found have a fairly significant new heart murmur his last echocardiogram from 2016 does not mention this in the patient says he has never been told he had a heart murmur before this raises my concern for possible endocarditis since she does have a venous access device. Family History FH: diabetes mellitus FH: heart disease Gallbladder disease Social History Smoking Status: Former Smoker Marital Status: Multi-Drug Resistant Organisms History of MDRO: No Allergies Coded Allergies: Iodinated Diagnostic Agents (Verified Adverse Reaction, Intermediate, Muscle cramping - cardiac stress test dye, 12/09/16) Home Medications Scheduled Aspirin (Aspir-81), 1 TAB PO QAM Budesonide/Formoterol Fumarate (Symbicort 160/4.5 Inhaler), 2 PUFFS INH BID Bupropion (Wellbutrin Sr), 200 MG PO AM Bupropion (Wellbutrin Sr), 150 MG PO NOON Fentanyl (Fentanyl), 1 PATCH TD Q3D Fentanyl (Fentanyl), 1 PATCH TD Q3D Furosemide (Lasix), 20 MG PO QAM Lisinopril (Zestril), 60 MG PO QAM Multiple Vitamins W/ Minerals (Centrum Silver Adult 50+), 1 TAB PO QAM Oxycodone/Acetaminophen 10MG/325MG (Percocet 10MG/325MG), 1 TAB PO Q6H Tiotropium [place] (Spiriva Handihaler), 1 CAP INH DAILY Scheduled PRN Albuterol Sulfate (Proair Respiclick), 1 PUFF INH QID PRN for SOB/Wheezing Review of Systems ROS: well nourished well developed he feels sort of out of it mild pain due to him missing his Percocet and generally feeling ill No double vision blurry vision No problems with speech or swallowing No palpitations, chest pain or pressure No Wheezing or breathing issues other than his typical baseline COPD and cough No abdominal pain nausea vomiting mild constipation but no diarrhea changes in appetite or weight No burning urine urine frequency or changes in color focal joint pain in his neck this is chronic or muscle pain No skin rashes or oral lesions No unusual bruising or bleeding No focused back pain or numbness or loss of strength No changes in memory or confusion Physical Exam Vital Signs Date Time Temp Pulse Resp B/P (MAP) Pulse Ox O2 Delivery O2 Flow Rate FiO2 12/09/16 16:09 82 17 116/58 93 Room Air 12/09/16 15:26 85 20 148/58 12/09/16 14:08 87 12/09/16 14:05 88 21 133/74 96 Room Air 12/09/16 13:12 Room Air 12/09/16 12:07 37.0 92 20 114/74 95 General Appearance: WD/WN, + mild distress Head: normocephalic, atraumatic Eyes: PERRL, EOMI ENT: hearing grossly normal, pharynx normal Neck: supple, no JVD, trachea midline Respiratory/Chest: chest non-tender, + decreased breath sounds, + pertinent finding (poor air movement) Cardiovascular: regular rate, rhythm, + systolic murmur (loud murmur heard throughout the base of the heart) Abdomen/GI: normal bowel sounds, non tender, soft Back: no CVA tenderness, no muscle spasm Extremities/Musculoskelatal: no pedal edema, normal range of motion Neurologic/Psych: alert, oriented x 3 Skin: + pertinent finding (there is a mild erythema over his right upper chest and a port area) Diagnostics Laboratory Results Results Past 24 Hours Test 12/09/16 13:43 12/09/16 13:52 12/09/16 14:00 12/09/16 15:20 Range/Units Venous Blood pH 7.42 7.36-7.41 Venous Blood Partial Pressure CO2 50 38.0-50.0 mmHg Venous Blood Partial Pressure O2 17 mmHg Venous Blood HCO3 32 mmol/L Venous Blood Oxygen Saturation < 60.0 % Venous Blood Base Excess 6.4 mEq/L White Blood Count 4.86 4.8-10.8 K/uL Red Blood Count 3.58 4.7-6.1 M/uL Hemoglobin 10.4 14.0-18.0 g/dL Hematocrit 32.7 42-52 % Mean Corpuscular Volume 91.3 80-100 fL Mean Corpuscular Hemoglobin 29.1 25-34 pg Mean Corpuscular Hemoglobin Concent 31.8 32-36 g/dl Platelet Count 171 130-400 K/uL Mean Platelet Volume 8.7 7.4-10.4 fL Neutrophils (%) (Auto) 82.2 % Lymphocytes (%) (Auto) 8.0 % Monocytes (%) (Auto) 7.6 % Eosinophils (%) (Auto) 1.6 % Basophils (%) (Auto) 0.2 % Neutrophils # (Auto) 3.99 1.4-6.5 K/uL Lymphocytes # (Auto) 0.39 1.2-3.4 K/uL Monocytes # (Auto) 0.37 0.11-0.59 K/uL Eosinophils # (Auto) 0.08 0-0.5 K/uL Basophils # (Auto) 0.01 0-0.2 K/uL RDW Standard Deviation 51.7 36.4-46.3 fL RDW Coefficient of Variation 15.4 11.5-14.5 % Immature Granulocyte % (Auto) 0.4 % Immature Granulocyte # (Auto) 0.02 0.00-0.02 K/uL Erythrocyte Sedimentation Rate 27 0-14 mm/hr Prothrombin Time 11.4 9.0-12.0 SECONDS Prothromb Time International Ratio 1.1 0.9-1.1 Activated Partial Thromboplast Time 29.2 21.0-31.0 SECONDS Partial Thromboplastin Ratio 1.1 Sodium Level 139 136-145 mmol/L Potassium Level 3.9 3.5-5.1 mmol/L Chloride Level 102 98-107 mmol/L Carbon Dioxide Level 31 21-32 mmol/L Anion Gap 6.0 3-11 mmol/L Blood Urea Nitrogen 14 7-18 mg/dl Creatinine 0.73 0.60-1.40 mg/dl Est Creatinine Clear Calc Drug Dose 108.8 ml/min Estimated GFR () 113.6 Estimated GFR (Non- 98.0 BUN/Creatinine Ratio 19.3 10-20 Random Glucose 110 70-99 mg/dl Calcium Level 8.6 8.5-10.1 mg/dl Magnesium Level 2.0 1.8-2.4 mg/dl Total Bilirubin 0.3 0.2-1 mg/dl Aspartate Amino Transf (AST/SGOT) 18 15-37 U/L Alanine Aminotransferase (ALT/SGPT) 20 12-78 U/L Alkaline Phosphatase 77 45-117 U/L Total Creatine Kinase 179 39-308 U/L Creatine Kinase MB 13.0 0.5-3.6 ng/ml Creatine Kinase MB Ratio 7.3 0-3.0 Troponin I 0.060 0-0.045 ng/ml C-Reactive Protein 14.40 0-0.29 mg/dl Total Protein 6.9 6.4-8.2 gm/dl Albumin 3.1 3.4-5.0 gm/dl Globulin 3.8 2.5-4.0 gm/dl Albumin/Globulin Ratio 0.8 0.9-2 Lipase 51 73-393 U/L Bedside Lactic Acid Venous 0.84 0.90-1.70 mmol/L Urine Color YELLOW Urine Appearance CLEAR CLEAR Urine pH 6.0 4.5-7.5 Urine Specific [place] 1.024 1.000-1.030 Urine Protein NEG NEG Urine Glucose (UA) NEG NEG Urine Ketones NEG NEG Urine Occult Blood NEG NEG Urine Nitrite NEG NEG Urine Bilirubin NEG NEG Urine Urobilinogen NEG NEG Urine Leukocyte Esterase NEG NEG Urine WBC (Auto) 1-5 0-5 /hpf Urine RBC (Auto) 0-4 0-4 /hpf Urine Hyaline Casts (Auto) 1-5 0-5 /lpf Urine Epithelial Cells (Auto) 0-5 0-5 /lpf Urine Bacteria (Auto) NEG NEG Microbiology Results 12/09/16 Blood Culture, Ordered Pending 12/09/16 Blood Culture, Ordered Pending 12/09/16 Blood Culture, Received Pending 12/09/16 Blood Culture, Received Pending Diagnostic Radiology Significant laboratories white count of 4 troponin was 0.6 and a sedimentation rate of 27 CXR normal (this is related is normal there may be mild congestive change) other Impression Assessment and Plan 66-year-old male currently treated for lung cancer who presents with fever and fatigue with a nondescript rash over his right upper chest there is a port site Infectious disease patient is given vancomycin and Zosyn for concern of cellulitis surrounding is a port site. Clinically this looks more like radiation dermatitis. Patient however has a new heart murmur my concern would be for endocarditis despite having a slightly elevated sedimentation rate. Patient will have blood cultures drawn from is a poor and an echocardiogram be undertaken look for valvular vegetations. Perhaps infectious disease consultation could be entertained to determine if the transthoracic echo again unremarkable if we should perform a transesophageal echo. Regarding his lung cancer and COPD we'll maintain his Symbicort and Spiriva with when necessary albuterol Regarding his chronic pain fentanyl 125 g patch will be continued with Percocet every 6 hours Regarding his depression will be maintained on extremely high doses of Wellbutrin at 350 mg a day DVT prevention is based upon enoxaparin. VTE Prophylaxis VTE Risk Assessment Done? Y/N: Yes Risk Level: Moderate
[2016-12-09 19:40] VITALS: BP 125/86; PULSE 84; TEMP 37.4; O2SAT 95; Ht 180.3 cm; Wt 91.6 kg
[2016-12-09] MEDS ORDERED: VANCOMYCIN CONSULT ACTIVE PRN (20:03)
[2016-12-09] MEDS ORDERED: PIPERACILL/TAZOBAC IV 3.375 GM in DEXTROSE 5% 100ML IV ONE (20:30)
[2016-12-09] MEDS ORDERED: VANCOMYCIN INJ 2,000 MG in SODIUM CHLORIDE 0.9% 500ML 500 ML IV ONE (20:30)
[2016-12-09] MEDS ORDERED: PIPERACILL/TAZOBAC CONSULT ACTIVE PRN (22:00)
[2016-12-09] MEDS: ENOXAPARIN 40 MG/0.4 ML SYR SQ SCH (22:29)
[2016-12-09] MEDS: BUDESONIDE/FORMOTEROL FUMARATE 160/4.5 60 PUFFS/INHALER INH SCH (22:29)
[2016-12-10] VITALS (13 sets, daily range): BP systolic 120–163; BP diastolic 68–85; PULSE 75–94; TEMP 36.8–37.5; O2SAT 92–97
[2016-12-10] MEDS: OXYCODONE/ACETAMINOPHEN 10/325MG TAB PO PRN ×5 (00:51→20:39)
[2016-12-10] MEDS: PIPERACILL/TAZOBAC IV 3.375 GM in DEXTROSE 5% 100ML 100 ML IV SCH ×3 (02:31→18:03)
[2016-12-10] MEDS: VANCOMYCIN INJ 1,500 MG in SODIUM CHLORIDE 0.9% 500ML 500 ML IV SCH ×2 (06:27→18:26)
[2016-12-10] MEDS: CHECK FENTANYL PATCH PLACEMENT SCH ×3 (08:00→16:16)
[2016-12-10 08:12] LABS: HEMATOCRIT 32.7 % (42-52); MEAN CELL VOLUME 91.3 fL (80-100); MEAN CORPUSCULAR HEMOGLOBIN 28.2 pg (25-34); MEAN CORPUSCULAR HGB CONC 30.9 g/dl (32-36); MEAN PLATELET VOLUME 8.3 fL (7.4-10.4); PLATELET COUNT 162 K/uL (130-400); RED BLOOD COUNT 3.58 M/uL (4.7-6.1); WHITE BLOOD COUNT 5.26 K/uL (4.8-10.8)
--- NOTE | 2016-12-10 08:35 | Oncology Consultation ---
Oncology/Heme Consultation Date of Consultation: Dec 10, 2016. Attending Physician: Huber Markham M.D. Reason for Consultation: 66-year-old gentleman with metastatic non-small cell lung cancer admitted on with fever and chills. History of Present Illness Grover is a pleasant 66-year-old gentleman well-known to the [facility] currently under my care with metastatic non-small cell lung cancer. Over the past couple of days Grover developed low-grade fever he states temperature max 101.5. Overall, not feeling well manifested by fatigue and decreased exercise tolerance. Apparently developed some redness around his port site which was concerning for cellulitis however he also received radiation in that region palliatively and could possibly be attributable to radiation dermatitis. There has been no pain or tenderness around the port site. Because of disease progression Grover has been receiving Opdivo one of the novel PDL-1 inhibitors last administered on November 29. For the most part has been tolerating treatment however pain management has been an issue with Grover as he is on regular fentanyl and breakthrough oxycodone. PET scan was performed back in mid September demonstrating clear disease progression specifically the dominant left upper lobe mass as well as bilateral pulmonary nodules and osseous metastatic disease prompting change in regimen. According to Grover's history and physical heart murmur was noted and medical service has initiated cardiac workup including echocardiogram to rule out endocarditis. He is currently on broad-spectrum antibiotics. Grover is due to receive his next course of chemotherapy this coming however will delay until he is medically stable. Past Medical/Surgical History Medical Problems: (1) Cellulitis of shoulder Status: Acute (2) Chest pain Status: Acute (3) Dyspnea Status: Acute (4) Fever Status: Acute (5) Guaiac positive stools Status: Acute (6) Metastatic lung carcinoma Status: Acute (7) Pleural effusion, left Status: Acute Family History FH: diabetes mellitus FH: heart disease Gallbladder disease Negative family history Social History Patient is retired, nonsmoker, nondrinker. Smoking Status: Former Smoker Marital Status: Housing Status: lives with family Allergies Coded Allergies: Iodinated Diagnostic Agents (Verified Adverse Reaction, Intermediate, Muscle cramping - cardiac stress test dye, 12/09/16) Home Medications Scheduled Aspirin (Aspir-81), 1 TAB PO QAM Budesonide/Formoterol Fumarate (Symbicort 160/4.5 Inhaler), 2 PUFFS INH BID Bupropion (Wellbutrin Sr), 200 MG PO AM Bupropion (Wellbutrin Sr), 150 MG PO NOON Fentanyl (Fentanyl), 1 PATCH TD Q3D Fentanyl (Fentanyl), 1 PATCH TD Q3D Furosemide (Lasix), 20 MG PO QAM Lisinopril (Zestril), 60 MG PO QAM Multiple Vitamins W/ Minerals (Centrum Silver Adult 50+), 1 TAB PO QAM Oxycodone/Acetaminophen 10MG/325MG (Percocet 10MG/325MG), 1 TAB PO Q6H Tiotropium [place] (Spiriva Handihaler), 1 CAP INH DAILY Scheduled PRN Albuterol Sulfate (Proair Respiclick), 1 PUFF INH QID PRN for SOB/Wheezing Current Inpatient Medications Current Inpatient Medications Medications (Trade) Dose Ordered Sig/Tila Route Start Time Stop Time Status Last Admin Dose Admin Aspirin (Ecotrin Tab) 81 mg QAM PO 12/10/16 09:00 01/09/17 08:59 Budesonide/ Formoterol Fumarate (Symbicort 160/ 4.5 Inh) 2 puffs BID INH 12/09/16 21:00 01/08/17 20:59 12/09/16 22:29 2 PUFFS Bupropion HCl (Wellbutrin-Sr Tab) 150 mg DAILY@1200 PO 12/10/16 12:00 01/09/17 11:59 Bupropion HCl (Wellbutrin-Sr Tab) 200 mg QAM PO 12/10/16 09:00 01/09/17 08:59 Fentanyl (Duragesic Patch) 25 mcg Q3D@0900 TD 12/10/16 09:00 12/24/16 08:59 Fentanyl (Duragesic Patch) 100 mcg Q3D@0900 TD 12/10/16 09:00 12/24/16 08:59 Furosemide (Lasix Tab) 20 mg QAM PO 12/10/16 09:00 01/09/17 08:59 Lisinopril (Zestril Tab) 60 mg QAM PO 12/10/16 09:00 01/09/17 08:59 Multivitamins/ Minerals (Multivitamin W/ Minerals Tab) 1 tab QAM PO 12/10/16 09:00 01/09/17 08:59 Enoxaparin Sodium (Lovenox Inj) 40 mg Q24H SQ 12/09/16 20:30 01/08/17 20:29 12/09/16 22:29 40 MG Acetaminophen (Tylenol Tab) 650 mg Q4H PRN PO 12/09/16 18:15 01/08/17 18:14 Al Hydrox/Mg Hydrox/Simethicone (Maalox Max Susp) 15 ml Q4H PRN PO 12/09/16 18:15 01/08/17 18:14 Magnesium Hydroxide (Milk Of Magnesia Susp) 30 ml Q6H PRN PO 12/09/16 18:15 01/08/17 18:14 Ondansetron HCl (Zofran Inj) 4 mg Q6H PRN IV 12/09/16 18:15 01/08/17 18:14 Vancomycin HCl (Consult) 1 ea UD PRN N/A 12/09/16 20:03 01/08/17 20:02 Piperacillin Sod/ Tazobactam Sod 3.375 gm/Dextrose 115 ml @ 28.75 mls/ hr Q8H IV 12/10/16 02:00 12/20/16 01:59 12/10/16 02:31 28.75 MLS/HR Tiotropium [place] (Spiriva Handihaler Inhaler) 1 puff DAILY INH 12/10/16 09:00 01/09/17 08:59 Miscellaneous (Fentanyl Patch Remove & Waste) 1 ea Q3D@0859 N/A 12/10/16 08:59 01/09/17 08:58 Miscellaneous Information (Check Fentanyl Patch Placement) 1 ea QS N/A 12/10/16 00:00 01/09/17 00:00 12/10/16 00:00 1 EA Miscellaneous (Fentanyl Patch Remove & Waste) 1 ea Q3D@0859 N/A 12/10/16 08:59 01/09/17 08:58 Vancomycin HCl 1500 mg/Sodium Chloride 530 ml @ 200 mls/hr Q12@0600,1800 IV 12/10/16 06:00 12/20/16 05:59 12/10/16 06:27 200 MLS/HR Piperacillin Sod/ Tazobactam Sod (Consult) 1 ea UD PRN N/A 12/09/16 22:00 01/08/17 21:59 Oxycodone/ Acetaminophen (Percocet 10-325MG Tab) 1 tab Q4H PRN PO 12/10/16 00:39 12/23/16 18:14 12/10/16 06:34 1 TAB Review of Systems Constitutional: + fever, + chills Eyes: No worsening of vision, No eye pain, No redness, No discharge, No diplopia, No problem reported ENT: No hearing loss, No unusual epistaxis, No nasal symptoms, No sore throat, No tinnitus, No dental problems, No trouble swallowing, No problem reported Respiratory: No cough, No sputum, No wheezing, No shortness of breath, No dyspnea on exertion, No dyspnea at rest, No hemoptysis, No problem reported Cardiovascular: + problem reported (new heart murmur, elevated troponin) Abdomen: No pain, No nausea, No vomiting, No diarrhea, No constipation, No GI bleeding, No problem reported Musculoskeletal: No joint pain, No muscle pain, No swelling, No calf pain, No problem reported Neurologic: No memory loss, No paralysis, No weakness, No numbness/tingling, No vertigo, No balance problems, No problem reported Psychiatric: No depression symptoms, No anhedonism, No anxiety, No insomnia, No substance abuse, No problem reported Endocrine: No fatigue, No excessive thirst, No excessive urination, No problem reported Hematologic / Lymphatic: No abnormal bleeding/bruising, No clotting problems, No swollen lymph nodes, No night sweats, No problem reported Integumentary: + rash (expanding erythema around port site consistent with radiation-induced dermatitis.) Physical Exam Date Time Temp Pulse Resp B/P (MAP) Pulse Ox O2 Delivery O2 Flow Rate FiO2 12/10/16 07:08 37.4 93 20 139/79 (99) 92 Room Air 12/10/16 04:10 96 Room Air 12/10/16 03:57 36.9 75 18 120/76 (91) 96 Room Air 12/10/16 00:05 95 Room Air 12/10/16 00:00 36.8 77 17 122/72 (89) 96 Room Air 12/09/16 19:40 37.4 84 18 125/86 95 Room Air 12/09/16 19:00 83 16 123/67 98 Room Air 12/09/16 16:09 82 17 116/58 93 Room Air 12/09/16 15:26 85 20 148/58 12/09/16 14:08 87 12/09/16 14:05 88 21 133/74 96 Room Air 12/09/16 13:12 Room Air 12/09/16 12:07 37.0 92 20 114/74 95 General Appearance: WD/WN, no apparent distress Head: normocephalic, atraumatic Eyes: normal inspection, PERRL, EOMI, sclerae normal ENT: normal ENT inspection Neck: supple, no adenopathy Respiratory/Chest: chest non-tender, lungs clear, normal breath sounds Cardiovascular: regular rate, rhythm, no edema, no JVD Abdomen/GI: normal bowel sounds, non tender, soft, no organomegaly Back: normal inspection Extremities/Musculoskelatal: normal inspection, no calf tenderness, normal capillary refill Neurologic/Psych: medical affairs director II-XII nml as tested, no motor/sensory deficits, oriented x 3 Skin: + rash (mild erythema in proximity to port site and right anterior shoulder.) Laboratory Results Last 24 Hours Test 12/09/16 13:43 12/09/16 13:52 12/09/16 14:00 12/09/16 15:20 Venous Blood pH 7.42 Venous Blood Partial Pressure CO2 50 mmHg Venous Blood Partial Pressure O2 17 mmHg Venous Blood HCO3 32 mmol/L Venous Blood Oxygen Saturation < 60.0 % Venous Blood Base Excess 6.4 mEq/L White Blood Count 4.86 K/uL Red Blood Count 3.58 M/uL Hemoglobin 10.4 g/dL Hematocrit 32.7 % Mean Corpuscular Volume 91.3 fL Mean Corpuscular Hemoglobin 29.1 pg Mean Corpuscular Hemoglobin Concent 31.8 g/dl Platelet Count 171 K/uL Mean Platelet Volume 8.7 fL Neutrophils (%) (Auto) 82.2 % Lymphocytes (%) (Auto) 8.0 % Monocytes (%) (Auto) 7.6 % Eosinophils (%) (Auto) 1.6 % Basophils (%) (Auto) 0.2 % Neutrophils # (Auto) 3.99 K/uL Lymphocytes # (Auto) 0.39 K/uL Monocytes # (Auto) 0.37 K/uL Eosinophils # (Auto) 0.08 K/uL Basophils # (Auto) 0.01 K/uL RDW Standard Deviation 51.7 fL RDW Coefficient of Variation 15.4 % Immature Granulocyte % (Auto) 0.4 % Immature Granulocyte # (Auto) 0.02 K/uL Erythrocyte Sedimentation Rate 27 mm/hr Prothrombin Time 11.4 SECONDS Prothromb Time International Ratio 1.1 Activated Partial Thromboplast Time 29.2 SECONDS Partial Thromboplastin Ratio 1.1 Sodium Level 139 mmol/L Potassium Level 3.9 mmol/L Chloride Level 102 mmol/L Carbon Dioxide Level 31 mmol/L Anion Gap 6.0 mmol/L Blood Urea Nitrogen 14 mg/dl Creatinine 0.73 mg/dl Est Creatinine Clear Calc Drug Dose 108.8 ml/min Estimated GFR () 113.6 Estimated GFR (Non- 98.0 BUN/Creatinine Ratio 19.3 Random Glucose 110 mg/dl Calcium Level 8.6 mg/dl Magnesium Level 2.0 mg/dl Total Bilirubin 0.3 mg/dl Aspartate Amino Transf (AST/SGOT) 18 U/L Alanine Aminotransferase (ALT/SGPT) 20 U/L Alkaline Phosphatase 77 U/L Total Creatine Kinase 179 U/L Creatine Kinase MB 13.0 ng/ml Creatine Kinase MB Ratio 7.3 Troponin I 0.060 ng/ml C-Reactive Protein 14.40 mg/dl Total Protein 6.9 gm/dl Albumin 3.1 gm/dl Globulin 3.8 gm/dl Albumin/Globulin Ratio 0.8 Lipase 51 U/L Bedside Lactic Acid Venous 0.84 mmol/L Urine Color YELLOW Urine Appearance CLEAR Urine pH 6.0 Urine Specific [place] 1.024 Urine Protein NEG Urine Glucose (UA) NEG Urine Ketones NEG Urine Occult Blood NEG Urine Nitrite NEG Urine Bilirubin NEG Urine Urobilinogen NEG Urine Leukocyte Esterase NEG Urine WBC (Auto) 1-5 /hpf Urine RBC (Auto) 0-4 /hpf Urine Hyaline Casts (Auto) 1-5 /lpf Urine Epithelial Cells (Auto) 0-5 /lpf Urine Bacteria (Auto) NEG Test 12/09/16 20:24 12/10/16 00:32 12/10/16 08:04 Hepatitis C Antibody Screen NEG Troponin I 0.034 ng/ml White Blood Count 5.26 K/uL Red Blood Count 3.58 M/uL Hemoglobin 10.1 g/dL Hematocrit 32.7 % Mean Corpuscular Volume 91.3 fL Mean Corpuscular Hemoglobin 28.2 pg Mean Corpuscular Hemoglobin Concent 30.9 g/dl RDW Standard Deviation 52.0 fL RDW Coefficient of Variation 15.4 % Platelet Count 162 K/uL Mean Platelet Volume 8.3 fL Assessment & Plan 1. Fever of unknown origin. 2. New heart murmur/mildly elevated troponin. 3. Metastatic non-small cell lung cancer (bilateral lungs/osseous). 4. Erythematous rash (port site). 5 anemia of chronic disease. Grover is a pleasant 66-year-old gentleman well-known to [facility] currently under my care for metastatic non-small cell lung cancer. Apparently over the weekend developed low-grade fever and chills. Malaise is his only other significant symptoms. He denies productive cough or sore throat. His appetite has been reasonable and denies any GI symptomatology presently. Blood cultures are pending and patient has been placed on empiric antibiotics. I'm not terribly concerned with skin rashes or is no warmth or pain associated with the port site. He did receive palliative radiation therapy in the past and conceivably has developed radiation-induced dermatitis. Medical team is investigating heart murmur and elevated troponin. Chest x-ray done on admission shows no acute infiltrates. He suffers from chronic anemia associated with previous chemotherapy. Intervention is not indicated at this time. Grover is due to receive chemotherapy later on this week however will delay until he is medically stable. Agree with current medical management have nothing further to add at this time. I will continue to follow Grover periodically during his hospital stay and ensure outpatient follow-up as scheduled upon his discharge. Thank you very much for assisting us in the care of this very pleasant gentleman.
[2016-12-10] MEDS: TIOTROPIUM BROMIDE 5 PUFF/90 MCG INH INH SCH (08:46)
[2016-12-10] MEDS: ASPIRIN 81 MG ECTAB PO SCH (08:46)
[2016-12-10] MEDS: BUDESONIDE/FORMOTEROL FUMARATE 160/4.5 60 PUFFS/INHALER INH SCH ×2 (08:46→20:38)
[2016-12-10] MEDS: BuPROPion SR 100 MG TABCR PO SCH (08:47)
[2016-12-10] MEDS: CEROVITE ADV FORMULA TAB PO SCH (08:48)
[2016-12-10] MEDS: LISINOPRIL 20 MG TAB PO SCH (08:48)
[2016-12-10] MEDS: FUROSEMIDE 20 MG TAB PO SCH (08:48)
[2016-12-10 08:52] LABS: BUN/CREATININE RATIO 18.5 (10-20); CALCIUM 8.1 mg/dl (8.5-10.1); CREATININE 0.65 mg/dl (0.60-1.40)
[2016-12-10] MEDS ORDERED: FENTANYL PATCH REMOVE & WASTE SCH ×2 (08:59)
[2016-12-10] MEDS ORDERED: FENTANYL 100 MCG/HR TDSY TD SCH (09:00)
[2016-12-10] MEDS ORDERED: TIOTROPIUM BROMIDE 5 PUFF/90 MCG INH INH SCH (09:00)
[2016-12-10] MEDS ORDERED: FENTANYL 25 MCG/HR TDSY TD SCH (09:00)
[2016-12-10] MEDS: BuPROPion SR 150 MG TABCR PO SCH (12:39)
--- NOTE | 2016-12-10 13:45 | ECHOCARDIOGRAM REPORT ---
*NOTICE TO RECEIVING REPUBLICAN AGENCY This information is strictly Confidential and protected under [place] law. [place] law prohibits you from making any further disclosure of this information unless further disclosure is expressly permitted by the written consent of the person to whom it pertains or is authorized by law. A general authorization for the release of medical or other information is not sufficient for this purpose. Hospital accepts no responsibility if the information is made available to any other person, INCLUDING THE PATIENT. Interpretation Summary * Name: JOSIAH HILARIO Study Date: 12/10/2016 07:35 AM BP: 120/76 mmHg * Patient Location: C.2T\S\E217\S\1 HR: 75 * : 1950 (M/d/yyyy) Gender: Male Height: 71 in * Age: 66 yrs Ethnicity: CA Weight: 182 lb * Ordering Physician: Huber Markham * Referring Physician: Self, Referred * Performed By: Edinson Orosco RCS * * Reason For Study: Murmurs * BSA: 2.0 m2 * -- Conclusions -- * The left ventricle is hyperdynamic. * No regional wall motion abnormalities noted. * Ejection Fraction = >70 %. * There is borderline concentric left ventricular hypertrophy. * Grade I diastolic dysfunction, (abnormal relaxation pattern). * Mild aortic regurgitation. Procedure Details * A complete two-dimensional transthoracic echocardiogram was performed (2D, M-mode, Doppler and color flow Doppler). * The study was technically difficult. * There were technical limitations due to patient'sPoor acoustic windows secondary to severe lung disease. * Definity was not adminstered as per patient he had a reaction of lower back pain as asked if it not be used Left Ventricle * The left ventricle is normal in size. * There is borderline concentric left ventricular hypertrophy. * The left ventricle is hyperdynamic. * Ejection Fraction = >70 %. * No regional wall motion abnormalities noted. Right Ventricle * The right ventricle is grossly normal size. * The right ventricular systolic function is normal as assessed by tricuspid annular plane systolic excursion (TAPSE) (normal >1.5 cm). Atria * The left atrial size is normal. * Right atrial size is normal. * There is no evidence of atrial septal defect, but resolution does not allow assessment for a patent foramen ovale. Mitral Valve * The mitral valve is grossly normal. * There is no mitral valve stenosis. * Significant mitral regurgitation is absent. Tricuspid Valve * The tricuspid valve is not well visualized, but is grossly normal. * Significant tricuspid regurgitation is absent. Aortic Valve * The aortic valve is not well visualized. * The aortic valve opens well. * Cannot exclude aortic valvular vegetation. * Mild aortic regurgitation. Pulmonic Valve * The pulmonary valve is not well seen, but the Doppler examination is normal without significant regurgitation or stenosis. Great Vessels * The aortic root is normal size. * The pulmonary is not well visualized. Pericardium/Pleural * There is no pericardial effusion. Great Vessels * Normal inferior vena cava size and collapsability with sniff indicates a normal right atrial pressure of 3 mmHg Left Ventricular Diastolic Function * Grade I diastolic dysfunction, (abnormal relaxation pattern). MMode 2D Measurements and Calculations IVSd 1.1 cm IVSs 1.3 cm LVIDd 4.1 cm LVIDs 2.6 cm LVPWd 1.1 cm LVPWs 1.3 cm IVS/LVPW 1.0 FS 35.9 % EDV(Teich) 73.5 ml ESV(Teich) 25.0 ml EF(Teich) 66.0 % EDV(cubed) 68.1 ml ESV(cubed) 17.9 ml EF(cubed) 73.7 % % IVS thick 21.4 % % LVPW thick 20.3 % LV mass(C)d 143.3 grams LV mass(C)dI 70.7 grams/m\S\2 LV mass(C)s 101.9 grams LV mass(C)sI 50.3 grams/m\S\2 CO(Teich) 4.1 l/min CI(Teich) 2.0 l/min/m\S\2 SV(Teich) 48.5 ml SI(Teich) 23.9 ml/m\S\2 CO(cubed) 4.2 l/min CI(cubed) 2.1 l/min/m\S\2 SV(cubed) 50.2 ml SI(cubed) 24.8 ml/m\S\2 ACS 2.9 cm LA dimension 3.3 cm asc Aorta Diam 3.2 cm LVOT diam 2.6 cm LVOT area 5.2 cm\S\2 LVAd ap4 40.7 cm\S\2 LVLd ap4 9.8 cm EDV(MOD-sp4) 141.0 ml LVAs ap4 20.9 cm\S\2 LVLs ap4 7.9 cm ESV(MOD-sp4) 47.0 ml EF(MOD-sp4) 66.7 % LVAd ap2 33.8 cm\S\2 LVLd ap2 9.3 cm EDV(MOD-sp2) 102.0 ml LVAs ap2 15.0 cm\S\2 LVLs ap2 7.3 cm ESV(MOD-sp2) 27.0 ml EF(MOD-sp2) 73.5 % CO(MOD-sp4) 7.9 l/min CI(MOD-sp4) 3.9 l/min/m\S\2 SV(MOD-sp4) 94.0 ml SI(MOD-sp4) 46.4 ml/m\S\2 CO(MOD-sp2) 6.3 l/min CI(MOD-sp2) 3.1 l/min/m\S\2 SV(MOD-sp2) 75.0 ml SI(MOD-sp2) 37.0 ml/m\S\2 Doppler Measurements and Calculations MV E max cuco 117.9 cm/sec MV A max cuco 130.9 cm/sec MV E/A 0.90 MV P1/2t max cuco 143.3 cm/sec MV P1/2t 79.0 msec MVA(P1/2t) 2.8 cm\S\2 MV dec slope 531.6 cm/sec\S\2 MV dec time 0.27 sec Ao V2 max 277.0 cm/sec Ao max PG 30.7 mmHg Ao max PG (full) 15.5 mmHg Ao V2 mean 189.0 cm/sec Ao mean PG 16.3 mmHg Ao mean PG (full) 8.9 mmHg Ao V2 VTI 56.6 cm MARLO(I,A) 3.6 cm\S\2 MARLO(I,D) 3.6 cm\S\2 MARLO(V,A) 3.7 cm\S\2 MARLO(V,D) 3.7 cm\S\2 AI max cuco 384.1 cm/sec AI max PG 59.0 mmHg AI dec slope 228.9 cm/sec\S\2 AI P1/2t 491.5 msec LV V1 max PG 15.2 mmHg LV V1 mean PG 7.3 mmHg LV V1 max 195.0 cm/sec LV V1 mean 124.3 cm/sec LV V1 VTI 39.4 cm SV(LVOT) 206.1 ml SI(LVOT) 101.7 ml/m\S\2 TR max cuco 222.6 cm/sec
--- NOTE | 2016-12-10 15:45 | Progress Note ---
Subjective Date of Service: Dec 10, 2016. Subjective pt states he feels much better and is walking in the roy ways. He states his "rash" over his a port is about the same and he feels its truely from the radiation treatments Problem List Medical Problems: (1) Cellulitis of shoulder Status: Acute (2) Chest pain Status: Acute (3) Dyspnea Status: Acute (4) Fever Status: Acute (5) Guaiac positive stools Status: Acute (6) Metastatic lung carcinoma Status: Acute (7) Pleural effusion, left Status: Acute Review of Systems Constitutional: + fever, + weakness, + fatigue, No chills Respiratory: No cough, No shortness of breath, No dyspnea on exertion Cardiac: No chest pain, No edema, No claudication Abdomen: No pain, No nausea, No vomiting, No diarrhea Musculoskeletal: No joint pain, No muscle pain Psychiatric: No depression symptoms, No anhedonism Objective Vital Signs Date Time Temp Pulse Resp B/P (MAP) Pulse Ox O2 Delivery O2 Flow Rate FiO2 12/10/16 07:08 37.4 93 20 139/79 (99) 92 Room Air 12/10/16 04:10 96 Room Air 12/10/16 03:57 36.9 75 18 120/76 (91) 96 Room Air 12/10/16 00:05 95 Room Air 12/10/16 00:00 36.8 77 17 122/72 (89) 96 Room Air 12/09/16 19:40 37.4 84 18 125/86 95 Room Air 12/09/16 19:00 83 16 123/67 98 Room Air 12/09/16 16:09 82 17 116/58 93 Room Air 12/09/16 15:26 85 20 148/58 12/09/16 14:08 87 12/09/16 14:05 88 21 133/74 96 Room Air 12/09/16 13:12 Room Air 12/09/16 12:07 37.0 92 20 114/74 95 Physical Exam General Appearance: WD/WN, no apparent distress Eyes: PERRL, EOMI Neck: supple, thyroid normal Respiratory/Chest: chest non-tender, lungs clear, normal breath sounds Cardiovascular: regular rate, rhythm, + systolic murmur Abdomen: normal bowel sounds, non tender, soft Extremities: no pedal edema, no calf tenderness Neurologic/Psychiatric: alert, oriented x 3 Laboratory Results Last 24 Hours Test 12/09/16 13:43 12/09/16 13:52 12/09/16 14:00 12/09/16 15:20 Venous Blood pH 7.42 Venous Blood Partial Pressure CO2 50 mmHg Venous Blood Partial Pressure O2 17 mmHg Venous Blood HCO3 32 mmol/L Venous Blood Oxygen Saturation < 60.0 % Venous Blood Base Excess 6.4 mEq/L White Blood Count 4.86 K/uL Red Blood Count 3.58 M/uL Hemoglobin 10.4 g/dL Hematocrit 32.7 % Mean Corpuscular Volume 91.3 fL Mean Corpuscular Hemoglobin 29.1 pg Mean Corpuscular Hemoglobin Concent 31.8 g/dl Platelet Count 171 K/uL Mean Platelet Volume 8.7 fL Neutrophils (%) (Auto) 82.2 % Lymphocytes (%) (Auto) 8.0 % Monocytes (%) (Auto) 7.6 % Eosinophils (%) (Auto) 1.6 % Basophils (%) (Auto) 0.2 % Neutrophils # (Auto) 3.99 K/uL Lymphocytes # (Auto) 0.39 K/uL Monocytes # (Auto) 0.37 K/uL Eosinophils # (Auto) 0.08 K/uL Basophils # (Auto) 0.01 K/uL RDW Standard Deviation 51.7 fL RDW Coefficient of Variation 15.4 % Immature Granulocyte % (Auto) 0.4 % Immature Granulocyte # (Auto) 0.02 K/uL Erythrocyte Sedimentation Rate 27 mm/hr Prothrombin Time 11.4 SECONDS Prothromb Time International Ratio 1.1 Activated Partial Thromboplast Time 29.2 SECONDS Partial Thromboplastin Ratio 1.1 Sodium Level 139 mmol/L Potassium Level 3.9 mmol/L Chloride Level 102 mmol/L Carbon Dioxide Level 31 mmol/L Anion Gap 6.0 mmol/L Blood Urea Nitrogen 14 mg/dl Creatinine 0.73 mg/dl Est Creatinine Clear Calc Drug Dose 108.8 ml/min Estimated GFR () 113.6 Estimated GFR (Non- 98.0 BUN/Creatinine Ratio 19.3 Random Glucose 110 mg/dl Calcium Level 8.6 mg/dl Magnesium Level 2.0 mg/dl Total Bilirubin 0.3 mg/dl Aspartate Amino Transf (AST/SGOT) 18 U/L Alanine Aminotransferase (ALT/SGPT) 20 U/L Alkaline Phosphatase 77 U/L Total Creatine Kinase 179 U/L Creatine Kinase MB 13.0 ng/ml Creatine Kinase MB Ratio 7.3 Troponin I 0.060 ng/ml C-Reactive Protein 14.40 mg/dl Total Protein 6.9 gm/dl Albumin 3.1 gm/dl Globulin 3.8 gm/dl Albumin/Globulin Ratio 0.8 Lipase 51 U/L Bedside Lactic Acid Venous 0.84 mmol/L Urine Color YELLOW Urine Appearance CLEAR Urine pH 6.0 Urine Specific [place] 1.024 Urine Protein NEG Urine Glucose (UA) NEG Urine Ketones NEG Urine Occult Blood NEG Urine Nitrite NEG Urine Bilirubin NEG Urine Urobilinogen NEG Urine Leukocyte Esterase NEG Urine WBC (Auto) 1-5 /hpf Urine RBC (Auto) 0-4 /hpf Urine Hyaline Casts (Auto) 1-5 /lpf Urine Epithelial Cells (Auto) 0-5 /lpf Urine Bacteria (Auto) NEG Test 12/09/16 20:24 12/10/16 00:32 12/10/16 04:44 Hepatitis C Antibody Screen NEG Troponin I 0.034 ng/ml Assessment and Plan 66-year-old male currently treated for metastatic adenocarinoma of lung , presented with fever and fatigue with a nondescript rash over his right upper chest where there is an a port site Infectious disease patient is given vancomycin and Zosyn for possible endocarditis, awaiting ECHO read for vegetations, await culture results, Dr Brown will decide on need for further Echo if cultures are abnormal new heart murmur my concern would be for endocarditis pending blood cultures and an echocardiogram Regarding his lung cancer and COPD we'll maintain his Symbicort and Spiriva Regarding his chronic pain fentanyl 125 g patch will be continued with Percocet every 6 hours depression Wellbutrin at 350 mg a day DVT prevention is based upon enoxaparin.
[2016-12-10] MEDS ORDERED: VANCOMYCIN TROUGH ONE (17:30)
[2016-12-10] MEDS ORDERED: HYDROmorphone INJ 1 MG/ML SYR IV STA (18:13)
[2016-12-10] MEDS ORDERED: HYDROmorphone INJ 0.5 MG/0.5 ML SYR IV PRN (18:15)
[2016-12-10] MEDS: ENOXAPARIN 40 MG/0.4 ML SYR SQ SCH (20:38)
[2016-12-10] MEDS: HYDROmorphone INJ 1 MG/ML SYR IV PRN (22:31)
[2016-12-11] VITALS (8 sets, daily range): BP systolic 116–145; BP diastolic 66–77; PULSE 80–95; TEMP 36.8–37.7; O2SAT 91–94
[2016-12-11] MEDS: CHECK FENTANYL PATCH PLACEMENT SCH ×3 (00:29→16:00)
[2016-12-11] MEDS: PIPERACILL/TAZOBAC IV 3.375 GM in DEXTROSE 5% 100ML 100 ML IV SCH ×3 (01:51→17:14)
[2016-12-11] MEDS: OXYCODONE/ACETAMINOPHEN 10/325MG TAB PO PRN ×3 (01:56→11:56)
[2016-12-11] MEDS: HYDROmorphone INJ 1 MG/ML SYR IV PRN ×4 (04:44→21:48)
[2016-12-11] MEDS: VANCOMYCIN INJ 1,500 MG in SODIUM CHLORIDE 0.9% 500ML 500 ML IV SCH ×2 (06:05→19:51)
[2016-12-11] MEDS: TIOTROPIUM BROMIDE 5 PUFF/90 MCG INH INH SCH (07:31)
[2016-12-11] MEDS: BUDESONIDE/FORMOTEROL FUMARATE 160/4.5 60 PUFFS/INHALER INH SCH ×2 (07:31→21:53)
[2016-12-11] MEDS: FUROSEMIDE 20 MG TAB PO SCH (07:32)
[2016-12-11] MEDS: ASPIRIN 81 MG ECTAB PO SCH (07:32)
[2016-12-11] MEDS: CEROVITE ADV FORMULA TAB PO SCH (07:32)
[2016-12-11] MEDS: LISINOPRIL 20 MG TAB PO SCH (07:33)
[2016-12-11] MEDS: BuPROPion SR 100 MG TABCR PO SCH (07:33)
--- NOTE | 2016-12-11 10:00 | Clinical Documentation Query ---
CLINICAL DOCUMENTATION QUERY 66 year old male who presents to the Emergency Room with complaints of a constant fever, chills, and is a chemotherapy patient. In your clinical opinion is this patient being managed for: ( ) Possible A-port infection causing bacterial endocarditis evidenced by right shoulder rash, new murmur by exam, and fever. ( ) Other explanation of clinical findings (Please Explain) ( ) Unable to determine (Please Define) ( ) Need to Discuss ( ) Not Agree The medical record reflects the following clinical findings, treatment, and risk factors. Clinical Indicators: fever 37.7, reports of chills, +systolic murmur, & erythema over his right upper chest and a port area. Treatment: IVF bolus, IV Zosyn, IV Vanco, BC x4, Echo, Cardiology consult Risk Factors: Age, Immunosuppressive therapy, Please clarify and document your clinical opinion in the progress notes and discharge summary. Terms such as "probable", "suspected", "likely", "questionable", "possible", or "still to be ruled out" are acceptable. IF IN AGREEMENT, YOU MUST DOCUMENT ABOVE DIAGNOSTIC STATEMENT IN DAILY PROGRESS NOTES AND DISCHARGE SUMMARY. This document is not part of the patient's record. Thank You, Cody Suresh RN [phone]
[2016-12-11] MEDS: BuPROPion SR 150 MG TABCR PO SCH (13:33)
[2016-12-11] MEDS: OXYCODONE HCL IR 5 MG TAB (IMMEDIATE RELEASE) PO PRN ×2 (14:22→19:50)
--- NOTE | 2016-12-11 15:21 | DIAGNOSTIC IMAGING REPORT ---
BILATERAL LOWER EXTREMITY VENOUS DOPPLER HISTORY: Lower extremity edema, recent travel, eval for DVT COMPARISON STUDY: None. FINDINGS: There is normal compressibility, flow, and augmentation within the bilateral lower extremity deep venous systems. IMPRESSION: No DVT within the right or left lower extremity. Electronically signed by: Fabien Adames M.D. 12/11/2016 3:20 PM Dictated Date/Time: 12/11/2016 3:20 PM
[2016-12-11] MEDS ORDERED: VANCOMYCIN TROUGH ONE (17:30)
[2016-12-11] MEDS ORDERED: OPTIRAY 320 IV PRN (19:15)
--- NOTE | 2016-12-11 19:15 | Progress Note ---
Subjective Date of Service: Dec 11, 2016. Subjective Pt evaluation today including: conversation w/ patient, conversation w/ family (daughter at bedside), physical exam, chart review, lab review, review of studies (recent cxr, dopplers of legs), review of inpatient medication list Pain: neck, right shoulder, left chest - chronic PO Intake: decreased mildly Voiding: no voiding problems telemetry stable overnight main complaints are that of fatigue, bone pain (despite increase in fentanyl patch 1 week ago and ongoing use of IV dilaudid/PO percocet 10's), mild cough ( unchanged from chronic cough), low-grade fevers he traveled to [facility] by RV with his family about 1 month ago upon returning to [facility] he had b/l leg swelling the trip up to [facility] was about 9 hours no tick bites no sick contacts Problem List Medical Problems: (1) Cellulitis of shoulder Status: Acute (2) Chest pain Status: Acute (3) Dyspnea Status: Acute (4) Fever Status: Acute (5) Guaiac positive stools Status: Acute (6) Metastatic lung carcinoma Status: Acute (7) Pleural effusion, left Status: Acute Review of Systems Constitutional: + fever, + chills, + fatigue ENT: No nasal symptoms, No sore throat Respiratory: + cough, No sputum Cardiac: + see HPI, + chest pain Abdomen: No pain, No nausea, No vomiting Male : No dysuria Objective Vital Signs Date Time Temp Pulse Resp B/P (MAP) Pulse Ox O2 Delivery O2 Flow Rate FiO2 12/11/16 16:15 37.3 84 16 130/71 (90) 94 Room Air 12/11/16 16:00 Room Air 12/11/16 12:00 Room Air 12/11/16 11:24 36.8 85 18 116/66 (83) 94 Room Air 12/11/16 08:00 Room Air 12/11/16 07:29 36.8 80 18 118/69 (85) 94 Room Air 12/11/16 04:20 37.7 94 20 131/77 (95) 93 12/11/16 04:10 93 Room Air 12/11/16 00:10 93 Room Air 12/10/16 23:00 37.5 83 18 126/68 (87) 93 Room Air 12/10/16 20:40 97 Room Air 12/10/16 20:00 37.4 88 20 163/85 (111) 97 Room Air Physical Exam General Appearance: no apparent distress ENT: pharynx normal Neck: no JVD Respiratory/Chest: no respiratory distress, no accessory muscle use, + decreased breath sounds (left base) Cardiovascular: regular rate, rhythm, no gallop, + systolic murmur (2/6 STEPH LLSB) Abdomen: normal bowel sounds, non tender, soft, no organomegaly Extremities: + pedal edema (1+ b/l ) Neurologic/Psychiatric: alert, oriented x 3 Skin: no rash, + pertinent finding (port- right chest - clean, no erythema or fluctuance ) Laboratory Results Last 24 Hours Test 12/11/16 17:47 Assessment and Plan 66yo male - 1. fever, fatigue - thus far w/u negative for specific infectious etiology. Blood cx's x 4 sets negative. echo negative for SBE. cxr at admission w/o pneumonia. u/a was negative. in light of cancer and recent travel need to r/o VTE - checked dopplers of legs - both neg for DVT. CTA chest to r/o PE ordered. I spoke with patient - he does NOT have an iodinated contrast allergy. He has tolerated IV contrast multiple times in the past 1-2 years including in September 2016. The allergy noted in the EMR is due to contrast used for a stress test - perhaps nuclear stress test. I spoke with CT regarding this and at this time pretreatment does not appear to be indicated. to be complete will also check a rapid PCR flu until CT chest is back will leave zosyn/vanco but likely these can be d/c 2. lung cancer with bony mets to c-spine, right shoulder, etc - increase oxycodone to 15's if this does not provide relief then try oral dilaudid in cristel of oxy's since fentanyl patch increase was 1 week ago can consider another increase in the next 2 days if needed steroids may be helpful as well for bone pain 3. COPD - without exacerbation at this time 4. DVT proph - lovenox once daily 5. HTN - controlled with current meds 6. +troponin - likely myocardial demand ischemia in the setting of #1 above. Follow. daughter updated CTA chest results will likely dictate plan of care Continued [facility] stay due to: inadequate oral pain control, multiple IV medications needed Discharge planning: home
--- NOTE | 2016-12-11 19:52 | DIAGNOSTIC IMAGING REPORT ---
CT ANGIOGRAPHY OF THE CHEST, PULMONARY EMBOLUS PROTOCOL CLINICAL HISTORY: Pleuritic chest pain. Lung cancer. Recent travel. COMPARISON STUDY: Chest CT October 08, 2006 13 and chest radiograph December 09, 2016. TECHNIQUE: Following IV administration of 94 mL of Optiray-320, helical axial images of the chest were obtained utilizing the pulmonary embolus protocol. Maximal intensity projections and sagittal and coronal reformats were viewed on an independent 3D workstation. IV contrast was administered without complication. A dose lowering technique was utilized adhering to the principles of ALARA. CT DOSE: 554.96 mGy.cm FINDINGS: No central pulmonary emboli are identified. The lobar, segmental and subsegmental pulmonary arteries are inadequately assessed due to respiratory motion. The size of the heart is at the upper limits of normal. Mild dilatation of the ascending aorta, measuring 4.4 cm is unchanged since prior CT of October 08, 2016. There is no evidence of thoracic aortic dissection. There is no pericardial effusion. Multiple mediastinal and hilar lymph nodes have increased in size since CT of October 08, 2016. Index prevascular node measures 1.3 cm. This previously measured 9 mm. Subcarinal and right hilar lymph nodes have increased in size as well. The dominant left upper lobe mass has increased in size since prior exam, now measuring 5.9 x 3.9 cm. It previously measured 4.3 x 2.1 cm. There is probable mediastinal invasion. Moderate emphysema is noted. Evidence for previous left lung resection is noted. Elevation of the left hemidiaphragm is unchanged. A 1 cm left lower lobe nodule is increased in size since prior exam of October 08, 2016. Numerous additional small subpleural nodules have developed in suggest metastatic disease. There is no pneumothorax or pleural effusion. There has been interval development of a 1.2 cm lytic lesion within the right posterior inferior aspect the T3 vertebral body. A 2.6 cm right humeral head lytic lesion is again noted. IMPRESSION: 1. Study significantly compromised by respiratory motion artifact. No central pulmonary emboli. Remainder of pulmonary arteries suboptimally assessed due to respiratory motion. 2. Moderate progression of metastatic disease since CT of October 08, 2016. Significant increase in size of the dominant left upper lobe mass with increase in mediastinal and hilar lymphadenopathy as well as increase in size and number of multiple pulmonary metastases. Interval development of a small T3 vertebral body metastasis. 3. Moderate emphysema. Electronically signed by: Jasbir Rivera M.D. 12/11/2016 7:51 PM Dictated Date/Time: 12/11/2016 7:36 PM
--- NOTE | 2016-12-11 20:21 | Pharmacy Progress Note ---
Pharmacy Abx Dose Progress Nt Date of Service Dec 11, 2016. Pharmacy Dosing Scope The patient is currently receiving the following antimicrobial agents per Pharmacy consult: * VANC 1500 mg (~18mg/kg) IV every 12 hours * ZOSYN 3.375g IV CI every 8 hours Objective Height (Feet): 5 Height (Inches): 11.00 Weight (Kilograms): 91.400 Vital Signs (Past 12Hrs) Vital Signs Past 12 Hours Date Time Temp Pulse Resp B/P (MAP) Pulse Ox O2 Delivery O2 Flow Rate FiO2 12/11/16 19:56 37.5 95 20 145/76 (99) 91 Room Air 12/11/16 16:15 37.3 84 16 130/71 (90) 94 Room Air 12/11/16 16:00 Room Air 12/11/16 12:00 Room Air 12/11/16 11:24 36.8 85 18 116/66 (83) 94 Room Air Lab Results (24Hrs) Item Value Date Time Vancomycin Level Trough 10.9 mcg/ml 12/11/16 1747 Micro Results Date/Time Source Procedure Growth Status 12/09/16 20:11 Blood Blood Culture - Preliminary NO GROWTH TO DATE. Resulted 12/09/16 20:03 Blood Blood Culture - Preliminary NO GROWTH TO DATE. Resulted 12/09/16 13:52 Blood Blood Culture - Preliminary NO GROWTH TO DATE. Resulted 12/09/16 13:43 Blood Blood Culture - Preliminary NO GROWTH TO DATE. Resulted Assessment & Plan Assessment 66 year old male receiving IV VANC/ZOSYN for treatment of cellulitis (a-port), r/o endocarditis Day # 3 of antimicrobial therapy Plan Vancomycin IV * Trough level of 10.9 mcg/mL is subtherapeutic. * Increase dose frequency to every 10 hours * Goal trough level ~ 15 mcg/mL * Recheck of Trough level: 12/12/16 @ 2330 Css Piperacillin/tazobactam * Continue 3.375 g IV extended infusion every 8 hours for CrCl greater than 20 mL/min OR every 12 hours for CrCl 20 mL/min or less. Pharmacy will continue to follow and will adjust dose/frequency as necessary. Thank you.
[2016-12-11] MEDS: ENOXAPARIN 40 MG/0.4 ML SYR SQ SCH ×2 (21:53→22:44)
[2016-12-11 22:48] LABS: INFLUENZA A PCR Neg for Influ A (NEG); INFLUENZA B PCR Neg for Influ B (NEG)
[2016-12-12] VITALS (9 sets, daily range): BP systolic 130–145; BP diastolic 67–79; PULSE 87–99; TEMP 37.1–37.7; O2SAT 90–95
[2016-12-12] MEDS: OXYCODONE HCL IR 5 MG TAB (IMMEDIATE RELEASE) PO PRN ×5 (01:16→23:37)
[2016-12-12] MEDS: HYDROmorphone INJ 1 MG/ML SYR IV PRN ×2 (03:51→15:36)
[2016-12-12] MEDS ORDERED: VANCOMYCIN INJ 1,500 MG in SODIUM CHLORIDE 0.9% 500ML 500 ML IV SCH (04:00)
[2016-12-12 05:08] LABS: HEMATOCRIT 29.3 % (42-52); MEAN CELL VOLUME 90.2 fL (80-100); MEAN CORPUSCULAR HEMOGLOBIN 28.9 pg (25-34); MEAN CORPUSCULAR HGB CONC 32.1 g/dl (32-36); MEAN PLATELET VOLUME 8.7 fL (7.4-10.4); PLATELET COUNT 186 K/uL (130-400); RED BLOOD COUNT 3.25 M/uL (4.7-6.1); WHITE BLOOD COUNT 5.58 K/uL (4.8-10.8)
[2016-12-12 05:41] LABS: BUN/CREATININE RATIO 14.3 (10-20); CALCIUM 8.2 mg/dl (8.5-10.1); CREATININE 0.66 mg/dl (0.60-1.40); POTASSIUM 3.8 mmol/L (3.5-5.1)
[2016-12-12] MEDS: CHECK FENTANYL PATCH PLACEMENT SCH ×4 (07:29→23:37)
[2016-12-12] MEDS: BUDESONIDE/FORMOTEROL FUMARATE 160/4.5 60 PUFFS/INHALER INH SCH ×2 (07:30→21:06)
[2016-12-12] MEDS: TIOTROPIUM BROMIDE 5 PUFF/90 MCG INH INH SCH (07:30)
[2016-12-12] MEDS: ASPIRIN 81 MG ECTAB PO SCH (07:31)
[2016-12-12] MEDS: LISINOPRIL 20 MG TAB PO SCH (07:31)
[2016-12-12] MEDS: CEROVITE ADV FORMULA TAB PO SCH (07:31)
[2016-12-12] MEDS: BuPROPion SR 100 MG TABCR PO SCH (07:31)
[2016-12-12] MEDS: FUROSEMIDE 20 MG TAB PO SCH (07:32)
[2016-12-12] MEDS ORDERED: NURSING VERBAL MED ORDER ONE (08:30)
[2016-12-12 08:39] LABS: LYME DISEASE AB IGG NEG (NEG); LYME DISEASE AB IGM NEG (NEG)
[2016-12-12] MEDS ORDERED: FENTANYL PATCH REMOVE & WASTE SCH ×2 (08:59)
--- NOTE | 2016-12-12 09:12 | Hematology/Oncology Prog Note ---
Hematology/Onc Progress Note Date of Service Dec 12, 2016. Diagnoses 1. Fever of unknown origin. 2. New heart murmur. 3. Metastatic non-small cell lung cancer. 4. Erythematous rash cellulitis versus radiation-induced dermatitis. 5. Intractable pain. Subjective Grover is a pleasant but unfortunate 66-year-old gentleman currently on hospital day 3 admitted for fever of unknown origin and intractable pain. Today, seems to be a much better day in regards to his pain issues. Consulted with pharmacy and recommended increase in fentanyl dose. Tolerating his diet, moving bowels and ambulating with minimal assistance. Fevers have subsided. CT of the chest was negative for pulmonary embolism however suggests disease progression. Vital Signs Vital Signs Past 12 Hours Date Time Temp Pulse Resp B/P (MAP) Pulse Ox O2 Delivery O2 Flow Rate FiO2 12/12/16 08:00 90 Room Air 12/12/16 07:44 37.1 95 18 132/71 (91) 90 Room Air 12/12/16 04:00 95 Nasal Cannula 2.0 12/12/16 04:00 37.7 96 18 131/67 (88) 95 Nasal Cannula 2.0 12/12/16 00:00 93 Nasal Cannula 2.0 12/12/16 00:00 37.5 96 18 138/71 (93) 92 Room Air Physical Exam Gen. 66-year-old gentleman in no acute distress. Skin, right shoulder erythema without evidence of expansion. HEENT oral mucosa without buccal lesions or ulceration Neck. Supple Heart. Regular rate and rhythm, very faint early systolic murmur. Lungs clear to auscultation Abdomen. Soft nontender nondistended Extremities. No clubbing cyanosis or edema. Neuro exam grossly intact Assessment & Plan 1. Intractable pain 2. Elevated troponin/heart murmur. 3. Anemia of chronic disease 4. Metastatic non-small cell lung cancer 5. Fever of unknown origin. In summary, Grover was seen and examined at bedside today. Much better day clinically than yesterday. Consulted with pharmacy regarding pain management. 2 recommendations increase fentanyl to 200 g topically daily. We'll ask for pain management consult as well. Proceed to wean intravenous Dilaudid. Fevers improving suggestive of possible chemotherapeutic effect. Progress towards discharge unless there is medical reason to extend Grover's inpatient status. Scheduled to resume chemotherapy upon discharge.
[2016-12-12] MEDS: FENTANYL 100 MCG/HR TDSY TD SCH (09:34)
[2016-12-12] MEDS: BuPROPion SR 150 MG TABCR PO SCH (11:45)
--- NOTE | 2016-12-12 14:54 | Radiation Oncology Follow-Up ---
Radiation Oncology Follow-Up Date of Visit Dec 12, 2016. Reason For Visit I was contacted by Dr. Jordan indicating that Mr. Mello has been admitted and that his main complaint at this time is pain in the right shoulder and mid to upper back. He asked me to see the patient for consideration of palliative radiation. Radiation Completion Date 11/14/2016 dose received 30 Gy. Diagnosis (1) Pain from bone metastases Status: Acute Onset Date: ~ 12/02/2016 Location: mid upper back radiating into the left scapular/shoulder region Stage: IV (2) Primary cancer of left upper lobe of lung Status: Acute Onset Date: 06/28/2015 Permanent Comment: Admission for shortness of breath and weight loss Finding of a left upper lobe lesion and pleural effusion Status post thoracentesis 06/28/2015 and 08/03/2015 Malignant pleural effusion with adenocarcinoma Status post systemic chemotherapy 10/05/2015 to 03/21/2016, Taxol/Carboplatin/ Avastin Status post maintenance Avastin until April 2016, stopped due to proteinuria Follow-up PET/CT revealing metastasis to the cervical spine and right humerus Ongoing neck pain Status post completion of radiation therapy to the cervical spine and right humerus. Radiation was completed 11/14/2016. He received 3000 cGy to each area. Last Edited By: Bronwyn Bundy on Nov 23, 2016 12:34 History of Present Illness In summary Mr. Mello is a 65-year-old male diagnosed with a initially locally advanced adenocarcinoma the lung. He was started on systemic chemotherapy and had an initial good response with improvement in his PET/CT scan from March 2016. More recently patient has noticed some decreasing appetite and weight loss and pain in the lower neck radiating into the left shoulder and scapular region. Repeat PET/CT scan from 10/03/2016 unfortunately showed evidence of progressive and recurrent disease in the left upper lobe mass and adenopathy. There was also multiple small pulmonary metastatic nodules. Also noted was interval development of several FDG avid skeletal lesions involving the right humeral head and lower cervical spine consistent with metastatic disease. I met with Mr. Mello to discuss the role of palliative radiation. It appears that his pain is progressing. He is on pain medication consisting of a Duragesic patch at 50 g and hydrocodone every 6 hours. This is providing improvement in pain but recently the pain has been getting more severe and persistent. I discussed with them the role of palliative radiation to this region. I told him that we would proceed with a CT simulation if he wished to receive palliative radiation. A consent form was reviewed with the patient. This listed the potential risks and side effects of local radiation to this region. These risks were read by the patient and initialed and the consent was read signed and witnessed. With the patient's consent we will proceed with scheduling his simulation. After reviewing his scan with radiology the lesion in the right humeral head, although not symptomatic, does place him at higher risk for fracture. I will therefore discussed with him palliative treatment to this site also. I told him we would treat him with 10 fractions delivered daily over 2 weeks. Interim History The patient was able to complete his course of palliative radiation. He was treated to the right humeral head and lower C-spine. He was treated from 2016 through 11/14/2016. He received 10 treatments over 13 elapsed days at 300 cGy per fraction for a total volume dose of 30 Gy. Patient did have response with clearance of the neck pain and marked improvement in the right shoulder pain. He recently presented with fevers and feeling poorly. He has continued to receive systemic chemotherapy under the care of Dr. Dale Denise. As part of his workup he underwent a CT scan of the chest to rule out pulmonary emboli. No emboli were identified. Mild dilatation of the ascending aorta measuring 4.4 cm and was stable. There were multiple mediastinal and hilar nodes and increased in size compared to the CT scan of 10/08/2016. Subcarinal and right hilar lymph nodes and also increased. The dominant left upper lobe mass had increased from 4.3 x 2.1 to 5.9 x 3.9 cm. Probable mediastinal invasion. There was interval development of a 1.2 cm lytic lesion within the right posterior inferior aspect of the T3 vertebral body which was not present on the 10/08/2016 scan area at the 2.6 cm right humeral head lytic lesion was again noted. This area was recently treated. The patient has noted increasing upper to mid back pain radiating into the left shoulder blade and left shoulder. He does continue to have some mild right shoulder pain which is much improved and tolerable. The pain in the back is moderate to at times severe. Patient is scheduled for an MRI of the thoracic spine to better evaluate the extent and severity of disease. We are awaiting the results of this scan. Allergies Coded Allergies: Iodinated Diagnostic Agents (Verified Adverse Reaction, Intermediate, Muscle cramping - cardiac stress test dye, 12/09/16) Home Medications Scheduled Aspirin (Aspir-81), 1 TAB PO QAM Budesonide/Formoterol Fumarate (Symbicort 160/4.5 Inhaler), 2 PUFFS INH BID Bupropion (Wellbutrin Sr), 200 MG PO AM Bupropion (Wellbutrin Sr), 150 MG PO NOON Fentanyl (Fentanyl), 1 PATCH TD Q3D Fentanyl (Fentanyl), 1 PATCH TD Q3D Furosemide (Lasix), 20 MG PO QAM Lisinopril (Zestril), 60 MG PO QAM Multiple Vitamins W/ Minerals (Centrum Silver Adult 50+), 1 TAB PO QAM Oxycodone/Acetaminophen 10MG/325MG (Percocet 10MG/325MG), 1 TAB PO Q6H Tiotropium [place] (Spiriva Handihaler), 1 CAP INH DAILY Scheduled PRN Albuterol Sulfate (Proair Respiclick), 1 PUFF INH QID PRN for SOB/Wheezing Physical Exam Vital Signs Date Time Temp Pulse Resp B/P (MAP) Pulse Ox O2 Delivery O2 Flow Rate FiO2 12/12/16 12:00 90 Room Air 12/12/16 11:18 37.2 90 18 145/70 (95) 95 Room Air 12/12/16 08:00 90 Room Air 12/12/16 07:44 37.1 95 18 132/71 (91) 90 Room Air 12/12/16 04:00 95 Nasal Cannula 2.0 12/12/16 04:00 37.7 96 18 131/67 (88) 95 Nasal Cannula 2.0 12/12/16 00:00 93 Nasal Cannula 2.0 12/12/16 00:00 37.5 96 18 138/71 (93) 92 Room Air 12/11/16 20:00 91 Room Air 12/11/16 19:56 37.5 95 20 145/76 (99) 91 Room Air 12/11/16 16:15 37.3 84 16 130/71 (90) 94 Room Air 12/11/16 16:00 Room Air 12/11/16 12:00 Room Air 12/11/16 11:24 36.8 85 18 116/66 (83) 94 Room Air 12/11/16 08:00 Room Air 12/11/16 07:29 36.8 80 18 118/69 (85) 94 Room Air 12/11/16 04:20 37.7 94 20 131/77 (95) 93 12/11/16 04:10 93 Room Air 12/11/16 00:10 93 Room Air 12/10/16 23:00 37.5 83 18 126/68 (87) 93 Room Air 12/10/16 20:40 97 Room Air 12/10/16 20:00 37.4 88 20 163/85 (111) 97 Room Air 12/10/16 16:00 96 Room Air 12/10/16 15:28 37.3 94 20 136/80 (98) 94 Room Air Pain: Side: Left Patient Pain Scale: 0 - 10 Initial Pain Intensity: 5.0 Pain Description: Aching Fatigue: Mild General Appearance: WD/WN, + mild distress Eyes: normal inspection ENT: normal ENT inspection Neck: supple, no adenopathy, thyroid normal Respiratory/Chest: + decreased breath sounds Cardiovascular: regular rate, rhythm, + systolic murmur Abdomen: normal bowel sounds, non tender, soft, no organomegaly Extremities: normal range of motion, no pedal edema Neurologic/Psychiatric: flexible babysitter II-XII nml as tested, no motor/sensory deficits, normal mood/affect, oriented x 3 Lymphatic: no adenopathy Laboratory Studies Test 11/14/16 11:46 11/28/16 13:41 12/09/16 13:43 12/09/16 13:52 Thyroid Stimulating Hormone (TSH) 1.060 uIu/ml (0.300-4.500) 0.618 uIu/ml (0.300-4.500) Immature Granulocyte % (Auto) 0.2 % 0.4 % White Blood Count 4.57 K/uL (4.8-10.8) 4.86 K/uL (4.8-10.8) Red Blood Count 3.69 M/uL (4.7-6.1) 3.58 M/uL (4.7-6.1) Hemoglobin 11.0 g/dL (14.0-18.0) 10.4 g/dL (14.0-18.0) Hematocrit 34.1 % (42-52) 32.7 % (42-52) Mean Corpuscular Volume 92.4 fL (80-100) 91.3 fL (80-100) Mean Corpuscular Hemoglobin 29.8 pg (25-34) 29.1 pg (25-34) Mean Corpuscular Hemoglobin Concent 32.3 g/dl (32-36) 31.8 g/dl (32-36) Platelet Count 156 K/uL (130-400) 171 K/uL (130-400) Mean Platelet Volume 9.0 fL (7.4-10.4) 8.7 fL (7.4-10.4) Neutrophils (%) (Auto) 78.1 % 82.2 % Lymphocytes (%) (Auto) 10.7 % 8.0 % Monocytes (%) (Auto) 9.0 % 7.6 % Eosinophils (%) (Auto) 2.0 % 1.6 % Basophils (%) (Auto) 0.0 % 0.2 % Neutrophils # (Auto) 3.57 K/uL (1.4-6.5) 3.99 K/uL (1.4-6.5) Lymphocytes # (Auto) 0.49 K/uL (1.2-3.4) 0.39 K/uL (1.2-3.4) Monocytes # (Auto) 0.41 K/uL (0.11-0.59) 0.37 K/uL (0.11-0.59) Eosinophils # (Auto) 0.09 K/uL (0-0.5) 0.08 K/uL (0-0.5) Basophils # (Auto) 0.00 K/uL (0-0.2) 0.01 K/uL (0-0.2) Immature Granulocyte # (Auto) 0.01 K/uL (0.00-0.02) 0.02 K/uL (0.00-0.02) Total Bilirubin 0.2 mg/dl (0.2-1) 0.3 mg/dl (0.2-1) Aspartate Amino Transferase (AST) 18 U/L (15-37) 18 U/L (15-37) Alanine Aminotransferase (ALT) 25 U/L (12-78) 20 U/L (12-78) Alkaline Phosphatase 69 U/L (45-117) 77 U/L (45-117) Total Protein 6.8 gm/dl (6.4-8.2) 6.9 gm/dl (6.4-8.2) Albumin 3.1 gm/dl (3.4-5.0) 3.1 gm/dl (3.4-5.0) Globulin 3.7 gm/dl (2.5-4.0) 3.8 gm/dl (2.5-4.0) Albumin/Globulin Ratio 0.8 (0.9-2) 0.8 (0.9-2) Venous Blood pH 7.42 (7.36-7.41) Venous Blood Partial Pressure CO2 50 mmHg (38.0-50.0) Venous Blood Partial Pressure O2 17 mmHg Venous Blood HCO3 32 mmol/L Venous Blood Oxygen Saturation < 60.0 % Venous Blood Base Excess 6.4 mEq/L Erythrocyte Sedimentation Rate 27 mm/hr (0-14) Prothrombin Time 11.4 SECONDS (9.0-12.0) Prothrombin Time INR 1.1 (0.9-1.1) PTT 29.2 SECONDS (21.0-31.0) Partial Thromboplastin Ratio 1.1 Magnesium Level 2.0 mg/dl (1.8-2.4) Total Creatine Kinase 179 U/L (39-308) Creatine Kinase MB 13.0 ng/ml (0.5-3.6) Creatine Kinase MB Ratio 7.3 (0-3.0) C-Reactive Protein 14.40 mg/dl (0-0.29) Lipase 51 U/L (73-393) Test 12/09/16 14:00 12/09/16 15:20 12/09/16 20:24 12/10/16 00:32 POC Lactic Acid Venous 0.84 mmol/L (0.90-1.70) Urine Color YELLOW Urine Appearance CLEAR (CLEAR) Urine pH 6.0 (4.5-7.5) Urine Specific [place] 1.024 (1.000-1.030) Urine Protein NEG (NEG) Urine Glucose (UA) NEG (NEG) Urine Ketones NEG (NEG) Urine Occult Blood NEG (NEG) Urine Nitrite NEG (NEG) Urine Bilirubin NEG (NEG) Urine Urobilinogen NEG (NEG) Urine Leukocyte Esterase NEG (NEG) Urine WBC (Auto) 1-5 /hpf (0-5) Urine RBC (Auto) 0-4 /hpf (0-4) Urine Hyaline Casts (Auto) 1-5 /lpf (0-5) Urine Epithelial Cells (Auto) 0-5 /lpf (0-5) Urine Bacteria (Auto) NEG (NEG) Hepatitis C Antibody Screen NEG (NEG) Troponin I 0.034 ng/ml (0-0.045) Test 12/10/16 08:04 12/11/16 17:47 12/11/16 20:43 12/12/16 04:27 White Blood Count 5.26 K/uL (4.8-10.8) 5.58 K/uL (4.8-10.8) Red Blood Count 3.58 M/uL (4.7-6.1) 3.25 M/uL (4.7-6.1) Hemoglobin 10.1 g/dL (14.0-18.0) 9.4 g/dL (14.0-18.0) Hematocrit 32.7 % (42-52) 29.3 % (42-52) Mean Corpuscular Volume 91.3 fL (80-100) 90.2 fL (80-100) Mean Corpuscular Hemoglobin 28.2 pg (25-34) 28.9 pg (25-34) Mean Corpuscular Hemoglobin Concent 30.9 g/dl (32-36) 32.1 g/dl (32-36) RDW Standard Deviation 52.0 fL (36.4-46.3) 51.1 fL (36.4-46.3) RDW Coefficient of Variation 15.4 % (11.5-14.5) 15.3 % (11.5-14.5) Platelet Count 162 K/uL (130-400) 186 K/uL (130-400) Mean Platelet Volume 8.3 fL (7.4-10.4) 8.7 fL (7.4-10.4) Sodium Level 139 mmol/L (136-145) 137 mmol/L (136-145) Potassium Level 4.0 mmol/L (3.5-5.1) 3.8 mmol/L (3.5-5.1) Chloride Level 103 mmol/L (98-107) 103 mmol/L (98-107) Carbon Dioxide Level 31 mmol/L (21-32) 27 mmol/L (21-32) Anion Gap 5.0 mmol/L (3-11) 7.0 mmol/L (3-11) Blood Urea Nitrogen 12 mg/dl (7-18) 9 mg/dl (7-18) Creatinine 0.65 mg/dl (0.60-1.40) 0.66 mg/dl (0.60-1.40) Est Creatinine Clear Calc Drug Dose 122.2 ml/min 130.7 ml/min Estimated GFR () 119.2 118.4 Estimated GFR (Non- 102.8 102.2 BUN/Creatinine Ratio 18.5 (10-20) 14.3 (10-20) Random Glucose 127 mg/dl (70-99) 112 mg/dl (70-99) Calcium Level 8.1 mg/dl (8.5-10.1) 8.2 mg/dl (8.5-10.1) Troponin I 0.024 ng/ml (0-0.045) Vancomycin Level Trough 10.9 mcg/ml (SEE COMMENT) Influenza Type A (RT-PCR) Neg for Influ A (NEG) Influenza Type B (RT-PCR) Neg for Influ B (NEG) Test 12/12/16 07:17 Lyme Disease IgG Antibody NEG (NEG) Lyme Disease IgM Antibody NEG (NEG) Additional Studies CT ANGIOGRAPHY OF THE CHEST, PULMONARY EMBOLUS PROTOCOL CLINICAL HISTORY: Pleuritic chest pain. Lung cancer. Recent travel. COMPARISON STUDY: Chest CT October 08, 2006 13 and chest radiograph December 09, 2016. TECHNIQUE: Following IV administration of 94 mL of Optiray-320, helical axial images of the chest were obtained utilizing the pulmonary embolus protocol. Maximal intensity projections and sagittal and coronal reformats were viewed on an independent 3D workstation. IV contrast was administered without complication. A dose lowering technique was utilized adhering to the principles of ALARA. CT DOSE: 554.96 mGy.cm FINDINGS: No central pulmonary emboli are identified. The lobar, segmental and subsegmental pulmonary arteries are inadequately assessed due to respiratory motion. The size of the heart is at the upper limits of normal. Mild dilatation of the ascending aorta, measuring 4.4 cm is unchanged since prior CT of October 08, 2016. There is no evidence of thoracic aortic dissection. There is no pericardial effusion. Multiple mediastinal and hilar lymph nodes have increased in size since CT of October 08, 2016. Index prevascular node measures 1.3 cm. This previously measured 9 mm. Subcarinal and right hilar lymph nodes have increased in size as well. The dominant left upper lobe mass has increased in size since prior exam, now measuring 5.9 x 3.9 cm. It previously measured 4.3 x 2.1 cm. There is probable mediastinal invasion. Moderate emphysema is noted. Evidence for previous left lung resection is noted. Elevation of the left hemidiaphragm is unchanged. A 1 cm left lower lobe nodule is increased in size since prior exam of October 08, 2016. Numerous additional small subpleural nodules have developed in suggest metastatic disease. There is no pneumothorax or pleural effusion. There has been interval development of a 1.2 cm lytic lesion within the right posterior inferior aspect the T3 vertebral body. A 2.6 cm right humeral head lytic lesion is again noted. IMPRESSION: 1. Study significantly compromised by respiratory motion artifact. No central pulmonary emboli. Remainder of pulmonary arteries suboptimally assessed due to respiratory motion. 2. Moderate progression of metastatic disease since CT of October 08, 2016. Significant increase in size of the dominant left upper lobe mass with increase in mediastinal and hilar lymphadenopathy as well as increase in size and number of multiple pulmonary metastases. Interval development of a small T3 vertebral body metastasis. 3. Moderate emphysema. Assessment & Plan The patient was treated previously for metastatic bony disease involving the C7 vertebral body and right humeral head. This treatment completed on 11/14/2016 with a dose of 30 Gy. He has had improvement in pain. More recently however his noted progressive pain in the mid upper back radiating into the left shoulder. A CT scan showed a lytic lesion in the T3 vertebral body that was not present in the September study. Our previous renee went down to the bottom of T2. We will therefore need to plan carefully to prevent overlap but include the lytic site. I spoke with the patient about a course of palliative radiation. The patient has agreed. I did tell him that an MRI was pending and that we wanted to wait for the results of this prior to proceeding with his treatment. I will arrange for the patient to come down tomorrow for CT simulation. The patient is asked to be premedicated for his MRI and if possible would like to premedicate him before he comes down for a CT simulation with Ativan. Once the patient has been simulated proceed with treatment planning. The treatment can start as an outpatient if the patient is discharged. We will again plan for 10 treatments delivered daily for 5 days a week for 2 weeks. Thank you for allowing us to participate in the care of this patient. This chart was completed in part utilizing [employer] Speech Voice Recognition software. Attempts were made to minimize the grammatical errors, random word insertions, pronoun errors and incomplete sentences. Any formal questions or concerns about the content, text or information contained within the body of this dictation should be directly addressed to the provider for clarification. John Shipley MD Department of Radiation Oncology [facility] Alysha Roblero [facility] Total Time In Follow-Up I spent 15 minutes in discussion of treatment options with the patient, 10 minutes reviewing his scans and in preparation of this document. Copy To Lesa Jimenez D.OShanell; Deni Denise D.O.; Sandoval Jordan MD; William Allen MD
[2016-12-12] MEDS ORDERED: LORAZEPAM 1 MG TAB PO SCH (18:00)
--- NOTE | 2016-12-12 19:33 | Progress Note ---
Subjective Date of Service: Dec 12, 2016. Subjective Pt evaluation today including: conversation w/ patient, conversation w/ family (daughter by phone), physical exam, chart review, lab review, review of studies (CTA chest, dopplers legs), conversation w/ customer service sales consultant (Dr. Denise, Dr. Shipley), review of inpatient medication list Pain: ongoing - t-spine, left chest, right shoulder - but modestly better today PO Intake: no issues Voiding: no voiding problems tele stable overnight we had a lengthy conversation about his CTA chest results from yesterday evening he is willing to try radiation to the suspected T3 met that is the location of his pain in the upper back; that pain radiates modestly to the left axillary area he was distraught about his CT results; was tearful denies any new infectious symptoms Problem List Medical Problems: (1) Cellulitis of shoulder Status: Acute (2) Chest pain Status: Acute (3) Dyspnea Status: Acute (4) Fever Status: Acute (5) Guaiac positive stools Status: Acute (6) Metastatic lung carcinoma Status: Acute (7) Pleural effusion, left Status: Acute Review of Systems Constitutional: No chills, No sweats Respiratory: + cough, No sputum, No shortness of breath Cardiac: + see HPI, + chest pain Abdomen: No pain Objective Vital Signs Date Time Temp Pulse Resp B/P (MAP) Pulse Ox O2 Delivery O2 Flow Rate FiO2 12/12/16 17:45 37.2 99 16 138/79 (98) 91 Room Air 12/12/16 17:39 37.4 87 20 92 12/12/16 16:12 37.4 87 20 130/72 (91) 92 Room Air 12/12/16 16:00 Room Air 12/12/16 12:00 90 Room Air 12/12/16 11:18 37.2 90 18 145/70 (95) 95 Room Air 12/12/16 08:00 90 Room Air 12/12/16 07:44 37.1 95 18 132/71 (91) 90 Room Air 12/12/16 04:00 95 Nasal Cannula 2.0 12/12/16 04:00 37.7 96 18 131/67 (88) 95 Nasal Cannula 2.0 12/12/16 00:00 93 Nasal Cannula 2.0 12/12/16 00:00 37.5 96 18 138/71 (93) 92 Room Air 12/11/16 20:00 91 Room Air 12/11/16 19:56 37.5 95 20 145/76 (99) 91 Room Air Physical Exam General Appearance: no apparent distress ENT: pharynx normal Neck: no JVD Respiratory/Chest: no respiratory distress, no accessory muscle use, + decreased breath sounds (left base), + crackles (left base) Cardiovascular: regular rate, rhythm, no gallop, no murmur Abdomen: normal bowel sounds, non tender, soft, no organomegaly Extremities: no pedal edema Neurologic/Psychiatric: alert, oriented x 3 Skin: + pertinent finding (a-port clean, right upper chest) Laboratory Results Last 24 Hours Test 12/11/16 20:43 12/12/16 04:27 12/12/16 07:17 Influenza Type A (RT-PCR) Neg for Influ A Influenza Type B (RT-PCR) Neg for Influ B White Blood Count 5.58 K/uL Red Blood Count 3.25 M/uL Hemoglobin 9.4 g/dL Hematocrit 29.3 % Mean Corpuscular Volume 90.2 fL Mean Corpuscular Hemoglobin 28.9 pg Mean Corpuscular Hemoglobin Concent 32.1 g/dl RDW Standard Deviation 51.1 fL RDW Coefficient of Variation 15.3 % Platelet Count 186 K/uL Mean Platelet Volume 8.7 fL Sodium Level 137 mmol/L Potassium Level 3.8 mmol/L Chloride Level 103 mmol/L Carbon Dioxide Level 27 mmol/L Anion Gap 7.0 mmol/L Blood Urea Nitrogen 9 mg/dl Creatinine 0.66 mg/dl Est Creatinine Clear Calc Drug Dose 130.7 ml/min Estimated GFR () 118.4 Estimated GFR (Non- 102.2 BUN/Creatinine Ratio 14.3 Random Glucose 112 mg/dl Calcium Level 8.2 mg/dl Lyme Disease IgG Antibody NEG Lyme Disease IgM Antibody NEG Assessment and Plan 66yo male - 1. fever, fatigue - thus far w/u negative for specific infectious etiology. Blood cx's x 4 sets negative. echo negative for SBE. cxr at admission w/o pneumonia. u/a was negative. CT chest w/o pneumonia. lyme's negative. influenza PCR negative. dopplers of legs neg for DVT; CT neg for PE. in light of cancer and recent travel need to r/o VTE - checked dopplers of legs - both neg for DVT. zosyn/vanco stopped observe off antibiotics cause? viral? due to cancer? other? 2. lung cancer, stage 4 - progressive. CT chest shows worsening left sided mass, worsening bony mets, etc. Has new met to T3 which is causing considerable pain. Spoke with Dr Denise & Dr Shipley - trial of xrt to T3. Reasonable to try prednisone for bone pain. Agree w/ increase in fentanyl patch. Cont oxycodone 15's prn. MRI t-spine to confirm extent of cancer met, r/o compression of cord, etc 3. COPD - without exacerbation at this time 4. DVT proph - lovenox once daily 5. HTN - controlled with current meds 6. +troponin - likely myocardial demand ischemia in the setting of #1 above. Follow. daughter updated by phone total time today about 60 minutes including multiple phone calls to daughter, oncology, rad onc, etc Continued [facility] stay due to: fever, inadequate oral pain control, multiple IV medications needed Discharge planning: home
[2016-12-12] MEDS ORDERED: VANCOMYCIN TROUGH ONE (23:30)
[2016-12-13] VITALS (7 sets, daily range): BP systolic 112–149; BP diastolic 68–78; PULSE 81–95; TEMP 36.7–37.1; O2SAT 90–95
[2016-12-13] MEDS: OXYCODONE HCL IR 5 MG TAB (IMMEDIATE RELEASE) PO PRN (03:58)
[2016-12-13] MEDS: HYDROmorphone INJ 1 MG/ML SYR IV PRN ×3 (07:01→10:33)
[2016-12-13] MEDS: BUDESONIDE/FORMOTEROL FUMARATE 160/4.5 60 PUFFS/INHALER INH SCH ×2 (07:57→20:33)
[2016-12-13] MEDS: TIOTROPIUM BROMIDE 5 PUFF/90 MCG INH INH SCH (07:57)
[2016-12-13] MEDS: CHECK FENTANYL PATCH PLACEMENT SCH ×3 (08:03→23:54)
[2016-12-13] MEDS ORDERED: LORAZEPAM 1 MG TAB ONE (08:11)
[2016-12-13] MEDS: ASPIRIN 81 MG ECTAB PO SCH (08:13)
[2016-12-13] MEDS: CEROVITE ADV FORMULA TAB PO SCH (08:13)
[2016-12-13] MEDS: FUROSEMIDE 20 MG TAB PO SCH (08:13)
[2016-12-13] MEDS: LISINOPRIL 20 MG TAB PO SCH (08:14)
[2016-12-13] MEDS: BuPROPion SR 100 MG TABCR PO SCH (08:14)
[2016-12-13] MEDS ORDERED: HYDROmorphone INJ 1 MG/ML SYR IV STA (08:25)
--- NOTE | 2016-12-13 08:43 | Hematology/Oncology Prog Note ---
Hematology/Onc Progress Note Date of Service Dec 13, 2016. Diagnoses 1. Fever of unknown origin. 2. New heart murmur. 3. Metastatic non-small cell lung cancer. 4. Erythematous rash cellulitis versus radiation-induced dermatitis. 5. Intractable pain. New metastatic lesion T3. Subjective Grover is a pleasant but unfortunate 66-year-old gentleman currently on hospital day 4 admitted for fever of unknown origin and intractable pain. According to Grover he was seen by both radiation oncology and pain management. Pain management recommended switching his oral oxycodone to hydromorphone. I had increased his fentanyl patch to 200 g topically every 72 hours. Radiation oncology has recommended palliation to T3 and will arrange for CT mapping. Otherwise Grover looks well and certainly appears more comfortable. Unfortunately, based on his most recent chest CT his disease is progressing and will need to discuss Therapeutic approach upon discharge. Vital Signs Vital Signs Past 12 Hours Date Time Temp Pulse Resp B/P (MAP) Pulse Ox O2 Delivery O2 Flow Rate FiO2 12/13/16 07:35 36.9 92 18 121/78 (92) 92 12/13/16 04:00 36.8 94 20 128/72 (90) 92 Room Air 12/13/16 00:03 36.7 81 20 123/68 (86) 94 Room Air 12/13/16 00:00 Room Air 12/12/16 20:50 Room Air Physical Exam In general. 66-year-old gentleman seen and examined at bedside in no acute distress. Skin without new rash or lesion. HEENT oral mucosal erythema and ulceration Heart regular rate and rhythm Lungs clear to auscultation bilaterally Abdomen soft nontender nondistended. Extremities no clubbing cyanosis or edema. Neuro exam grossly intact Assessment & Plan 1. Intractable pain, new lytic lesion at T3. 2. Elevated troponin/heart murmur. 3. Anemia of chronic disease 4. Metastatic non-small cell lung cancer 5. Fever of unknown origin. In summary, Grover was seen and examined at bedside today. Grover appeared much more comfortable this morning. Increased fentanyl 200 g topically every 72 hours. Pain management recommends switching oxycodone for oral hydromorphone. Radiation oncology saw Grover in consultation and recommends palliative radiation therapy to T3. Radiographically it would appear his disease is progressing and will need to engaged in discussion regarding therapeutics moving forward. I also plan to address the possibility of hospice care. Will continue to see Grover periodically through his hospital stay. I think the consultants and hospitalist service for assisting us in the care of this very pleasant but unfortunate gentleman.
--- NOTE | 2016-12-13 09:31 | Pain Management Consultation ---
Pain Management Consultation Date of Consultation Dec 13, 2016. Reason for Consultation Intractable pain with history of metastatic lungs CA Pain Location 1 - Cervicothoracic junction towards left scapula 2 - Left lateral and anterior chest wall 3 - Right upper humerus/deltoid location History Patient is a 66-year-old white male with a known history of metastatic lung cancer who was admitted with fever, fatigue and rash over the right upper chest at his port site. Patient has been on IV antibiotic therapy during this admission. He has also been expressing difficulties with poor pain control along the left lateral and anterior chest wall, cervicothoracic midline spinal location with radiation towards the left shoulder as well as the right upper arm. The patient has known metastatic involvement in these locations as well as prior surgical site in the left chest wall. Patient is currently undergoing chemotherapy and had prior radiation. He has been on chronic opiate therapy in the outpatient setting with fentanyl and Percocet for breakthrough pain. His fentanyl dose was increased to 200 g every 72 hours 24 hours ago. He is reporting improved pain control over this interval. He does continue to utilize oxycodone for when necessary breakthrough pain utilizing 75 mg over the past 24 hours. He feels oxycodone is moderately efficacious at when necessary breakthrough pain control without significant side effects. Patient rating his current pain at a 5-6/10. Patient denies radicular pattern to his pain, weaknesses in his extremities, bowel or bladder incontinence, footdrop or falling episodes. He has no further constitutional complaints. Past Medical/Surgical History (1) S/P bronchoscopy with biopsy (2) Left sided abdominal pain (3) Shortness of breath (4) Lung mass (5) Anemia (6) Elevated troponin (7) Cellulitis of shoulder (8) Fever (9) Pain from bone metastases (10) Primary cancer of left upper lobe of lung (11) Depression (12) Chest pain (13) Dyspnea (14) Guaiac positive stools (15) Metastatic lung carcinoma (16) Pleural effusion, left Family History FH: diabetes mellitus FH: heart disease Gallbladder disease Social / Work History Smoking Status: Former smoker Smokeless Tobacco Use: No Alcohol Use: none Drug Use: none Marital Status: Housing Status: lives with significant other Occupation: retired Allergies Coded Allergies: Iodinated Diagnostic Agents (Verified Adverse Reaction, Intermediate, Muscle cramping - cardiac stress test dye, 12/09/16) Medications Current Inpatient Medications Medications (Trade) Dose Ordered Sig/Tila Route Start Time Stop Time Status Last Admin Dose Admin Aspirin (Ecotrin Tab) 81 mg QAM PO 12/10/16 09:00 01/09/17 08:59 12/13/16 08:13 81 MG Budesonide/ Formoterol Fumarate (Symbicort 160/ 4.5 Inh) 2 puffs BID INH 12/09/16 21:00 01/08/17 20:59 12/13/16 07:57 2 PUFFS Bupropion HCl (Wellbutrin-Sr Tab) 150 mg DAILY@1200 PO 12/10/16 12:00 01/09/17 11:59 12/12/16 11:45 150 MG Bupropion HCl (Wellbutrin-Sr Tab) 200 mg QAM PO 12/10/16 09:00 01/09/17 08:59 12/13/16 08:14 200 MG Furosemide (Lasix Tab) 20 mg QAM PO 12/10/16 09:00 01/09/17 08:59 12/13/16 08:13 20 MG Lisinopril (Zestril Tab) 60 mg QAM PO 12/10/16 09:00 01/09/17 08:59 12/13/16 08:14 60 MG Multivitamins/ Minerals (Multivitamin W/ Minerals Tab) 1 tab QAM PO 12/10/16 09:00 01/09/17 08:59 12/13/16 08:13 1 TAB Enoxaparin Sodium (Lovenox Inj) 40 mg Q24H SQ 12/09/16 20:30 01/08/17 20:29 12/11/16 22:44 40 MG Acetaminophen (Tylenol Tab) 650 mg Q4H PRN PO 12/09/16 18:15 01/08/17 18:14 Al Hydrox/Mg Hydrox/Simethicone (Maalox Max Susp) 15 ml Q4H PRN PO 12/09/16 18:15 01/08/17 18:14 Magnesium Hydroxide (Milk Of Magnesia Susp) 30 ml Q6H PRN PO 12/09/16 18:15 01/08/17 18:14 Ondansetron HCl (Zofran Inj) 4 mg Q6H PRN IV 12/09/16 18:15 01/08/17 18:14 Tiotropium [place] (Spiriva Handihaler Inhaler) 1 puff DAILY INH 12/10/16 09:00 01/09/17 08:59 12/13/16 07:57 1 PUFF Hydromorphone HCl (Dilaudid Inj) 1 mg Q3H PRN IV 12/11/16 15:00 12/24/16 18:14 12/13/16 08:30 1 MG Ioversol (Optiray 320) 111 ml UD PRN IV 12/11/16 19:15 12/15/16 19:14 Fentanyl (Duragesic Patch) 200 mcg Q3D@0900 TD 12/12/16 09:00 12/26/16 08:59 12/12/16 09:34 200 MCG Miscellaneous (Fentanyl Patch Remove & Waste) 1 ea Q3D@0859 N/A 12/15/16 08:59 01/14/17 08:58 Miscellaneous Information (Check Fentanyl Patch Placement) 1 ea QS N/A 12/12/16 16:00 01/11/17 15:59 12/13/16 08:03 1 EA Hydromorphone HCl (Dilaudid Tab) 4 mg Q3HWA PRN PO 12/13/16 08:15 12/27/16 08:14 Review of Systems Patient denies complaints related to cardiac, pulmonary, GI, , endocrine, neurologic, hepatic, renal, ENT, dermatologic or musculoskeletal other than those described above in the history of present illness. Physical Exam Height & Weight: Height 5 feet, 11.00 inches. Weight 91.000 (Kilograms) 200 (Pounds) Last Vital Signs Documentation Date Time Temp Pulse Resp B/P (MAP) Pulse Ox O2 Delivery O2 Flow Rate FiO2 12/13/16 07:35 36.9 92 18 121/78 (92) 92 12/13/16 04:00 Room Air 12/12/16 04:00 2.0 Exam: General: Patient sitting upon entering the room in no acute distress. Speech and thought process appropriate. Mood and affect appropriate. Cognition intact. Patient able to stand from a sitting position, transfer and ambulate without limitation or obvious discomfort. Right shoulder: Forward range of motion passively and actively without limitation. Moderate discomfort appreciative throughout the range of motion. Negative Posey maneuver, empty can or Neer impingement maneuver. Patient is tender over the deltoid region to direct palpation. Cervicothoracic spine: Patient tender over the midline at the cervicothoracic junction in the upper thoracic region to palpation and percussion. No paravertebral tenderness or myofascial spasm. No focal facet joint tenderness. Patient tender over the left scapular region to palpation again without spasm. Chest wall: Patient tender over the lateral and anterior chest wall extending from the mid axillary through the mid clavicular line at approximate level of T8 -9 near prior incisional site. Incisions are well approximated and healed. Nontender with AP and lateral compression. No evidence of allodynia or hyperpathia response. Lower extremities: SLR negative. Noted edema appreciated. Neurologic: Cranial nerves grossly intact. Ambulatory function was normal. Laboratory Laboratory Results (Last CBC): 12/12/16 04:[address]: enhanced CT Findings Patient: JOSIAH HILARIO Address1: [address] Rec: [id number] Address2: Acct ID: [id number] [facility] Zip: [place] [address] Date: 1950 Sex: M Room/Bed: E217-1 Ref Phy: Deni Denise D.O. SC: C.2T Att Phy: Sandoval Jordan MD Report #: [id number] Mayr Phy: Lesa Jimenez D.O. Test: CXPEA Admit Phy: Huber Markham M.D. Offset Printing Operator: GONSALO Interpreting Phy: Jasbir Rivera MD Diagnosis: ELEVATED TROPONIN Ordering Phy: Sandoval Jordan MD Service Date: 12/11/16 Admit Date: 12/10/1707/20/17 MNE: [id number] CONF: DICTATED BY: Jasbir Rivera MD]] CC: Lesa Jimenez D.O. Lieb, James V. D.O. Siuta, Jonathan R., MD Endcc: [~ rep ct add3]] CT ANGIOGRAPHY OF THE CHEST, PULMONARY EMBOLUS PROTOCOL CLINICAL HISTORY: Pleuritic chest pain. Lung cancer. Recent travel. COMPARISON STUDY: Chest CT October 08, 2006 13 and chest radiograph December 09, 2016. TECHNIQUE: Following IV administration of 94 mL of Optiray-320, helical axial images of the chest were obtained utilizing the pulmonary embolus protocol. Maximal intensity projections and sagittal and coronal reformats were viewed on an independent 3D workstation. IV contrast was administered without complication. A dose lowering technique was utilized adhering to the principles of ALARA. CT DOSE: 554.96 mGy.cm FINDINGS: No central pulmonary emboli are identified. The lobar, segmental and subsegmental pulmonary arteries are inadequately assessed due to respiratory motion. The size of the heart is at the upper limits of normal. Mild dilatation of the ascending aorta, measuring 4.4 cm is unchanged since prior CT of October 08, 2016. There is no evidence of thoracic aortic dissection. There is no pericardial effusion. Multiple mediastinal and hilar lymph nodes have increased in size since CT of October 08, 2016. Index prevascular node measures 1.3 cm. This previously measured 9 mm. Subcarinal and right hilar lymph nodes have increased in size as well. The dominant left upper lobe mass has increased in size since prior exam, now measuring 5.9 x 3.9 cm. It previously measured 4.3 x 2.1 cm. There is probable mediastinal invasion. Moderate emphysema is noted. Evidence for previous left lung resection is noted. Elevation of the left hemidiaphragm is unchanged. A 1 cm left lower lobe nodule is increased in size since prior exam of October 08, 2016. Numerous additional small subpleural nodules have developed in suggest metastatic disease. There is no pneumothorax or pleural effusion. There has been interval development of a 1.2 cm lytic lesion within the right posterior inferior aspect the T3 vertebral body. A 2.6 cm right humeral head lytic lesion is again noted. IMPRESSION: 1. Study significantly compromised by respiratory motion artifact. No central pulmonary emboli. Remainder of pulmonary arteries suboptimally assessed due to respiratory motion. 2. Moderate progression of metastatic disease since CT of October 08, 2016. Significant increase in size of the dominant left upper lobe mass with increase in mediastinal and hilar lymphadenopathy as well as increase in size and number of multiple pulmonary metastases. Interval development of a small T3 vertebral body metastasis. 3. Moderate emphysema. Electronically signed by: Jasbir Rivera M.D. 12/11/2016 7:51 PM Dictated Date/Time: 12/11/2016 7:36 PM The status of this report is Signed. Draft = Not yet reviewed or approved by Radiologist. Signed = Reviewed and approved by Radiologist. Past Records Previous Records: personally reviewed by [place] [facility] Search Results: patient reviewed within database, no issues identified Assessment 1. Intractable pain secondary to bony metastatic lung cancer involving right humeral head, T3 vertebral body, and C6 vertebral body 2. History of non-small cell lung cancer Recommendations 1. Agree with maintaining fentanyl at 200 g dose at this time--consider further adjustment pending 24-hour use of breakthrough pain medications 2. Will discontinue oxycodone and transitioned to hydromorphone 4 mg every 3 hours when necessary for breakthrough pain 3. [place] IV hydromorphone for breakthrough pain not well controlled with oral hydromorphone 4. Will continue to follow during hospitalization Thank you for allowing us to participate in the care of Mr. Mello
[2016-12-13] MEDS ORDERED: FENTANYL PATCH REMOVE & WASTE ONE (10:00)
[2016-12-13] MEDS: FENTANYL 100 MCG/HR TDSY TD SCH (10:05)
--- NOTE | 2016-12-13 10:09 | DIAGNOSTIC IMAGING REPORT ---
THORACIC SPINE MRI WITH AND WITHOUT CONTRAST HISTORY: Back pain. eval for cord compression, compression Fx, diskitis, etc TECHNIQUE: Multiplanar multisequence MRI of the thoracic spine was performed both before and after the intravenous administration of contrast. COMPARISON: Chest CT 12/09/2016. FINDINGS: Multiple T2 hyperintense, T1 hypointense lesion seen within the C6, C7, T1, T2, T3, T4 and L2 vertebral bodies. Dominant lesions at the C6 and C7 vertebral bodies result in near complete replacement of the vertebral body. Mild prevertebral edema at the C6-C7 level. Left upper lobe mass is only partially visualized. There is a 2 cm nodule within the left lower lobe. Evaluation for epidural extension is suboptimal due to the mild motion artifact. However, no definite epidural extension of disease identified within the thoracic spine. No significant central canal narrowing. The cervical spinal cord demonstrates a normal signal intensity. IMPRESSION: 1. Multiple metastatic lesions seen within the lower cervical, thoracic, and lumbar spine as described above. No definite evidence for epidural extension at this time. 2. No significant central canal narrowing. 3. No acute fractures identified. 4. Pulmonary metastatic disease is again noted. Electronically signed by: Fabien Adames M.D. 12/13/2016 10:07 AM Dictated Date/Time: 12/13/2016 9:57 AM
[2016-12-13] MEDS ORDERED: HYDROmorphone INJ 2 MG/ML SYR/VIAL IV SCH (12:00)
[2016-12-13] MEDS ORDERED: KETOROLAC TROMETHAMINE 30 MG/ML VIAL IV SCH (12:00)
[2016-12-13] MEDS ORDERED: LORAZEPAM 2 MG/ML 1 ML VIAL IV SCH (12:00)
[2016-12-13] MEDS ORDERED: LORAZEPAM INJ 1 MG in SYRINGE 0.5 ML IV SCH (12:30)
[2016-12-13] MEDS: BuPROPion SR 150 MG TABCR PO SCH (12:30)
[2016-12-13] MEDS: HYDROmorphone HCL 2 MG TAB PO PRN (19:32)
[2016-12-13] MEDS: ENOXAPARIN 40 MG/0.4 ML SYR SQ SCH (20:34)
--- NOTE | 2016-12-13 20:34 | Progress Note ---
Subjective Date of Service: Dec 13, 2016. Subjective Pt evaluation today including: conversation w/ patient, physical exam, chart review, lab review, review of studies (MRI t-spine), conversation w/ loans consultant (oncology, Dr. Denise), review of inpatient medication list Pain: ongoing in back, chest - but modestly improved PO Intake: fair Voiding: no voiding problems no new issues overnight we had a candid discussion about his wishes regarding his care he is uncertain about continuing chemotherapy for his cancer and wants to think about it and speak with Dr. Denise about such he "wants to give it a try" when asked about palliative xrt he was quite distraught today, again quite emotional about this current state of health and knows he has "a lot going on" Problem List Medical Problems: (1) Cellulitis of shoulder Status: Acute (2) Chest pain Status: Acute (3) Dyspnea Status: Acute (4) Fever Status: Acute (5) Guaiac positive stools Status: Acute (6) Metastatic lung carcinoma Status: Acute (7) Pleural effusion, left Status: Acute Review of Systems Constitutional: No fever, No chills Respiratory: + cough, No dyspnea at rest Cardiac: No orthopnea Abdomen: No pain, No diarrhea, No constipation Objective Vital Signs Date Time Temp Pulse Resp B/P (MAP) Pulse Ox O2 Delivery O2 Flow Rate FiO2 12/13/16 19:03 37.1 95 17 149/73 (98) 90 Room Air 12/13/16 16:21 36.9 87 18 129/69 (89) 95 Room Air 12/13/16 14:16 36.8 88 16 120/71 (87) 95 Room Air 12/13/16 12:30 Room Air 12/13/16 11:42 37.1 90 18 112/71 (85) 95 12/13/16 08:00 Room Air 12/13/16 07:35 36.9 92 18 121/78 (92) 92 12/13/16 04:00 36.8 94 20 128/72 (90) 92 Room Air 12/13/16 00:03 36.7 81 20 123/68 (86) 94 Room Air 12/13/16 00:00 Room Air 12/12/16 20:50 Room Air Physical Exam General Appearance: no apparent distress, + pertinent finding (tearful, emotional ) ENT: pharynx normal Neck: no JVD Respiratory/Chest: no respiratory distress, no accessory muscle use, + decreased breath sounds (left base), + rales (slight, left base) Cardiovascular: regular rate, rhythm, no gallop, no murmur Abdomen: normal bowel sounds, non tender, soft, no organomegaly Extremities: no pedal edema Neurologic/Psychiatric: alert, oriented x 3, + depressed affect Laboratory Results Last 24 Hours Test 12/12/16 22:55 Vancomycin Level Trough 3.1 mcg/ml Assessment and Plan 66yo male - 1. fever, fatigue - extensive w/u was negative for specific infectious etiology. Blood cx's x 4 sets negative. echo negative for SBE. cxr at admission w/o pneumonia. u/a was negative. CT chest w/o pneumonia. lyme's negative. influenza PCR negative. dopplers of legs neg for DVT; CT neg for PE. abx have been stopped and he has remained afebrile cause? viral? due to cancer? other? 2. lung cancer, stage 4 - progressive. CT chest shows worsening left sided mass, worsening bony mets, etc. Spoke with Dr Denise & Dr Shipley - trial of xrt to T3. Reasonable to try prednisone for bone pain. Gave 40mg yesterday, 20mg today, and then 10mg tomorrow. Agree w/ increase in fentanyl patch. Agree with changing oxy's to dilaudid PO prn. Appreciate pain management consultation. MRI t-spine shows numerous bony mets. 3. COPD - without exacerbation at this time 4. DVT proph - lovenox once daily 5. HTN - controlled with current meds 6. +troponin - likely myocardial demand ischemia in the setting of #1 above. Follow. patient to get CT simulation today for upcoming palliative xrt I discussed with patient that if he cannot tolerate the xrt it is ok to stop it and let it go anticipate d/c home tomorrow if pain is reasonably controlled Continued [facility] stay due to: inadequate oral pain control, multiple IV medications needed Discharge planning: home
[2016-12-13] MEDS ORDERED: NURSING VERBAL MED ORDER ONE (23:15)
[2016-12-14 00:28] VITALS: BP 118/69; PULSE 84; TEMP 36.8; O2SAT 91
[2016-12-14] MEDS: HYDROmorphone HCL 2 MG TAB PO PRN ×4 (04:24→16:44)
[2016-12-14 04:33] VITALS: BP 111/67; PULSE 73; TEMP 36.9; O2SAT 92
[2016-12-14 06:26] LABS: HEMATOCRIT 27.4 % (42-52); MEAN CELL VOLUME 90.7 fL (80-100); MEAN CORPUSCULAR HEMOGLOBIN 28.5 pg (25-34); MEAN CORPUSCULAR HGB CONC 31.4 g/dl (32-36); PLATELET COUNT 194 K/uL (130-400); RED BLOOD COUNT 3.02 M/uL (4.7-6.1); WHITE BLOOD COUNT 4.66 K/uL (4.8-10.8)
[2016-12-14 06:58] LABS: BUN/CREATININE RATIO 23.7 (10-20); CALCIUM 8.1 mg/dl (8.5-10.1); CREATININE 0.62 mg/dl (0.60-1.40)
[2016-12-14] MEDS: TIOTROPIUM BROMIDE 5 PUFF/90 MCG INH INH SCH (07:58)
[2016-12-14] MEDS: BUDESONIDE/FORMOTEROL FUMARATE 160/4.5 60 PUFFS/INHALER INH SCH (07:59)
[2016-12-14] MEDS: ASPIRIN 81 MG ECTAB PO SCH (07:59)
[2016-12-14] MEDS: CHECK FENTANYL PATCH PLACEMENT SCH ×2 (07:59→16:01)
[2016-12-14] MEDS: CEROVITE ADV FORMULA TAB PO SCH (08:00)
[2016-12-14] MEDS: FUROSEMIDE 20 MG TAB PO SCH (08:00)
[2016-12-14] MEDS: LISINOPRIL 20 MG TAB PO SCH (08:02)
[2016-12-14] MEDS: BuPROPion SR 100 MG TABCR PO SCH (08:02)
[2016-12-14 08:05] VITALS: BP 138/79; PULSE 89; TEMP 37; O2SAT 93
--- NOTE | 2016-12-14 08:57 | Pain Management Progress Note ---
Pain Management Progress Note Date of Service Dec 14, 2016. Subjective Mr. Ibanez is a 66 year old white male with metastatic lung cancer. Patient is currently on Fentanyl patch 200mcg/hr and tolerating the medication well. Yesterday he was transitioned from Oxycodone to oral Dilaudid 4mg x 3 hours. Patient states that Dilaudid is controlling his pain well. He denies any side effects such as constipation, confusion, or drowsiness. Pain is rated 2/10 currently. Patient is pleased with the current pain relief. No constitutional complaints, neurological symptoms. Case discussed with Dr. Dias Objective Vital Signs: Last Vital Signs Documentation Date Time Temp Pulse Resp B/P (MAP) Pulse Ox O2 Delivery O2 Flow Rate FiO2 12/14/16 08:05 37.0 89 18 138/79 (98) 93 Room Air 12/12/16 04:00 2.0 Physical Exam: GENERAL: Mr. Ibanez is a 66 y/o white male that appears his stated age. Speech and cognition is intact. Mood and affect is appropriate. Standing in the room, in no acute distress. NEURO: Normal gait. Awake, alert, and oriented x 3. Laboratory Laboratory Findings 12/14/16 05:21 Assessment 1. Intractable pain secondary to bony metastatic lung cancer involving right humeral head, T3 vertebral body, and C6 vertebral body 2. History of non-small cell lung cancer Recommendations 1. Continue Fentanyl patch 200mcg/hr and oral Dilaudid 4mg x 3 hours PRN pain. 2. Patient's pain is well controlled, will sign off on the patient.
[2016-12-14] MEDS: HYDROmorphone INJ 1 MG/ML SYR IV PRN (10:22)
[2016-12-14] MEDS ORDERED: LORAZEPAM 1 MG TAB PO STA (11:07)
[2016-12-14] MEDS ORDERED: HYDROmorphone INJ 2 MG/ML SYR/VIAL IV STA (11:07)
[2016-12-14 11:35] VITALS: BP 168/77; PULSE 99; TEMP 36.9; O2SAT 91
[2016-12-14] MEDS: BuPROPion SR 150 MG TABCR PO SCH (12:05)
[2016-12-14] MEDS ORDERED: HYDROmorphone INJ 2 MG/ML SYR/VIAL ONE (13:34)
[2016-12-14 15:47] VITALS: BP 125/68; PULSE 96; TEMP 37.1; O2SAT 93
[2016-12-14] MEDS ORDERED: OMEP40CA41 PO (18:17)
[2016-12-14] MEDS ORDERED: FENT50DI19 TOP (18:17)
[2016-12-14] MEDS ORDERED: HYDR4TAB78 PO (18:17)
[2016-12-14] MEDS ORDERED: PRED-301 PO (18:17)
[2016-12-14] MEDS ORDERED: LISI40TA PO (18:17)
--- NOTE | 2016-12-14 18:29 | Discharge Instructions ---
Discharge Instructions Date of Service Dec 14, 2016. Admission Reason for Admission: fever Discharge Discharge Diagnosis / Problem: fever - resolved Discharge Goals Goal(s): Learn about illness, Diagnostic testing, Therapeutic intervention Activity Recommendations Activity Limitations: resume your previous activity (as tolerated ) . Instructions / Follow-Up Instructions / Follow-Up From Dr. Jordan - 1. During your stay you had extensive testing looking for the cause of your fever. We did not find evidence of pneumonia, blood clots in the lungs, blood clots in the legs, bloodstream infection, infection in the spine, urine infection, influenza or lyme's disease. Your fever resolved over time. At this time we will observe you off of antibiotics. Please call Dr. Denise or your family doctor, Dr. Jimenez, if you experience recurrent fevers over 100.5 degrees. 2. For pain control please do the following - * increase your fentanyl patches to 150mcg in total * continue your 100mcg patch but please leaf size picker the new prescription for the 50mcg patches and use a total of 150mcg every 3 days * this dose can be quickly increased if needed over the next few weeks * take prednisone 5mg daily starting tomorrow 12/15/16 * use hydromorphone ("dilaudid") 4mg tab every 3 hours as needed for pain * stop the percocets at this time * do not drink alcohol or drive while taking pain medication 3. Diarrhea - * fortunately your c. diff testing was negative * you may use [id number] immodium as needed for diarrhea * if the diarrhea worsens or persists please let Dr. Denise or Dr. Jimenez know 4. To help prevent stomach irritation from the prednisone please take omeprazole 40mg once daily every morning. 5. Please stop your aspirin. 6. Follow-up appointments - * please return to radiation oncology this Saturday for additional radiation * see the appointment section in this handout for other appointment times (Dr. Denise, pain management, etc) 7. Anxiety - * may take ativan 1mg every 6 hours as needed for anxiety; do not drink alcohol with ativan or drive as the ativan can make you tired 8. Return to [facility] if - * you develop recurrent fevers over 100.5 degrees * your pain is severe and not being controlled with your pain medications * you develop severe chest pain, abdominal pain, or shortness of breath Current Hospital Diet Patient's current hospital diet: Regular Diet Discharge Diet Recommended Diet: Regular Diet Procedures Procedures Performed: 1. CAT scan of lungs showing no pneumonia, emphysema, and lung cancer. 2. Dopplers of legs - no evidence of blood clots in either leg. 3. C diff test from stool NEGATIVE. 4. Echocardiogram - normal heart function. 5. MRI of thoracic spine showing cancer in multiple bones. 6. Blood cultures (multiple) with no evidence of blood stream infection. Pending Studies Studies pending at discharge: no Medical Emergencies . Who to Call and When: Medical Emergencies: If at any time you feel your situation is an emergency, please call 911 immediately. . Non-Emergent Contact Non-Emergency issues call your: Oncologist (Dr. Denise) Call Non-Emergent contact if: temperature is above 100.5, your pain is not controlled, your pain is worsening, your pain is unusual for you, your pain is concerning you, you have any medication questions . . "Provider Documentation" section prepared by Sandoval Jordan. . VTE Core Measure Inpt VTE Proph given/why not?: Enoxaparin (Lovenox)SQ
[2016-12-14] MEDS ORDERED: ATV/1 PO (18:30)
[2016-12-14 18:43] VITALS: BP 125/68; PULSE 96; TEMP 37.1; O2SAT 93
[2016-12-15] MEDS ORDERED: FENTANYL PATCH REMOVE & WASTE SCH (08:59)
--- NOTE | 2016-12-17 11:41 | Discharge Summary ---
Discharge Summary Date of Service Dec 17, 2016. Discharge Summary Admission Date: Dec 09, 2016 at 18:21 Discharge Date: Dec 14, 2016 Discharge Disposition: Home Principal Diagnosis: fever, fatigue - etiology uncertain but fever resolved Problems/Secondary Diagnoses: 1. extensive, progressive stage 4 lung cancer 2. chronic pain syndrome 2nd to bone pain from lung cancer 3. depression 4. COPD 5. positive troponin likely due to myocardial demand ischemia 6. HTN Procedures: 1. CTA chest - IMPRESSION: 1. Study significantly compromised by respiratory motion artifact. No central pulmonary emboli. Remainder of pulmonary arteries suboptimally assessed due to respiratory motion. 2. Moderate progression of metastatic disease since CT of October 08, 2016. Significant increase in size of the dominant left upper lobe mass with increase in mediastinal and hilar lymphadenopathy as well as increase in size and number of multiple pulmonary metastases. Interval development of a small T3 vertebral body metastasis. 3. Moderate emphysema. 2. LE venous duplex study negative for DVT b/l 3. MRI thoracic spine - IMPRESSION: 1. Multiple metastatic lesions seen within the lower cervical, thoracic, and lumbar spine as described above. No definite evidence for epidural extension at this time. 2. No significant central canal narrowing. 3. No acute fractures identified. 4. Pulmonary metastatic disease is again noted. 4. echocardiogram - * -- Conclusions -- * The left ventricle is hyperdynamic. * No regional wall motion abnormalities noted. * Ejection Fraction = >70 %. * There is borderline concentric left ventricular hypertrophy. * Grade I diastolic dysfunction, (abnormal relaxation pattern). * Mild aortic regurgitation. Consultations: hematology/oncology - Deni Denise DO radiation oncology - Frandy Shipley MD pain management - LAUREN Bermudez Medication Reconciliation New Medications: Lorazepam (Ativan) 1 Mg Tab 1 MG PO Q6H PRN for Anxiety/Agitation, #30 TAB 0 Refills Omeprazole (Prilosec) 40 Mg Cap 1 CAP PO QAM for 30 Days, #30 CAP 11 Refills Prednisone (Prednisone) 5 Mg Tab 5 MG PO DAILY, #30 TAB 2 Refills Hydromorphone Hcl (Dilaudid) 4 Mg Tab 1 TAB PO Q3H PRN for Pain, #45 TAB 0 Refills Changed Medications: Fentanyl (Duragesic) 50 Mcg/Hr Dis 50 MCG TOP Q72H, #10 PATCH 0 Refills (Changed from: Fentanyl 25 Mcg Tdsy 1 Patch TD Q3D #5 ) total dose 150mcg (100mcg patch + 50mcg patch) Lisinopril (Zestril) 40 Mg Tab 40 MG PO QAM, #30 TAB 0 Refills (Changed from: 60 MG; Refills: ) Continued Medications: Albuterol Sulfate (Proair Respiclick) 108 Mcg/Act Aer 1 PUFF INH QID PRN for SOB/Wheezing Budesonide/Formoterol Fumarate (Symbicort 160/4.5 Inhaler) 120 Puffs/ Aero 2 PUFFS INH BID, INHALER Bupropion (Wellbutrin Sr) 200 Mg Ertab 200 MG PO AM, TAB Bupropion (Wellbutrin Sr) 150 Mg Ertab 150 MG PO NOON, TAB Fentanyl (Fentanyl) 100 Mcg Tdsy 1 PATCH TD Q3D, #10 Furosemide (Lasix) 20 Mg Tab 20 MG PO QAM, TAB Multiple Vitamins W/ Minerals (Centrum Silver Adult 50+) 1 Tab Tab 1 TAB PO QAM Tiotropium [place] (Spiriva Handihaler) 30 Puff/540 Mcg Aerp 1 CAP INH DAILY Discontinued Medications: Aspirin (Aspir-81) 81 Mg Tab 1 TAB PO QAM Oxycodone/Acetaminophen 10MG/325MG (Percocet 10MG/325MG) Tab 1 TAB PO Q6H, TAB Discharge Exam Physical Exam: General Appearance: no apparent distress ENT: pharynx normal (no thrush ) Neck: no JVD Respiratory/Chest: no respiratory distress, no accessory muscle use, + decreased breath sounds (left base with minimal crackles) Cardiovascular: regular rate, rhythm, no gallop, + systolic murmur (2/6 STEPH RUSB) Abdomen / GI: normal bowel sounds, non tender, soft, no organomegaly Extremities: + pedal edema (trace b/l ) Neurologic/Psychiatric: alert, oriented x 3, + depressed affect Skin: + pertinent finding (port, upper chest, clean/no erythema/no fluctuance or tenderness) Hospital Course HISTORY OF PRESENT ILLNESS: Mr. Ibanez is a 66yo male with known stage 4 lung cancer who presented with fevers and not feeling well. He reported he was approximately 10 days out from his most recent chemotherapy for his lung cancer. He also had had palliative radiation therapy in the past. The patient stated that he had had no other symptoms other than some dental work done over the last few days. He's had a cough which is normal for him with no increase in sputum production. He had had no focal abdominal pain, dysuria, or urinary frequency. No rashes or tick bites. HOSPITAL COURSE: 1. fever, fatigue - the patient underwent an extensive work-up for these symptoms but unfortunately a specific infectious etiology was NOT found. Blood cultures x 4 sets were negative. Echocardiogram was negative for any obvious vegetation/endocarditis. Urinalysis was not suggestive of UTI. CT chest did not show pneumonia or PE. Lyme's screen was negative. Influenza PCR was negative. Dopplers of legs were negative for DVT. C diff toxin was negative. Again the exact etiology of his fever was uncertain. Perhaps the fever was due to the cancer itself. After 48 hours of negative cultures his antibiotics were discontinued and he was observed. Fortunately he did not have any further fever for the remainder of his stay. 2. lung cancer, stage 4 - CT chest showed worsening left sided lung cancer, worsening bony mets, etc. He was seen by Dr. Deni Denise, oncology, throughout his stay. Dr. Shipley from radiation oncology was consulted for palliative radiation to the thoracic spine as the patient reported considerable pain in this region. He received 1 radiation treatment to the thoracic spine while hospitalized. He was seen in consult by pain management and his fentanyl patch was increased and his percocet was changed to oral dilaudid. He was also started on low-dose daily prednisone to help with bone pain, improve his appetite and COPD symptoms, etc. He will have close follow-up with Dr. Denise, his primary oncologist, shortly after discharge to discuss his overall care plan as it appears his cancer continues to progress despite ongoing efforts at chemotherapy. 3. COPD - was stable and without exacerbation during the hospitalization. 4. HTN - his lisinopril was decreased to 40mg daily as his BPs were normal or low-normal on his prior dose of 60mg. 5. +troponin - was felt to be myocardial demand ischemia in the setting of #1 above. Total Time Spent: Greater than 30 minutes This includes examination of the patient, discharge planning, medication reconciliation, and communication with other providers. Discharge Instructions Please refer to the electronic Patient Visit Report (Discharge Instructions) for additional information. Follow-Up 1. Dr. Denise - hematology/oncology - SaturdayDecember 18 at 3:30 pm. 2. [facility] on SaturdayJanuary 01 at 2:50 pm with Feli Khan PA-C. 3. [facility] Rad[facility] - SaturdayDecember [address] Lesa Jimeenz - appointment date/time to be determined Additional Copies To Eduardo Gutierrez PA; Frandy Shipley M.D.; Lesa Jimenez D.OShanell; Deni Denise D.O.
[2016-12-27] MEDS ORDERED: DRGTP75 TD (14:12)
[2016-12-27] MEDS ORDERED: METO-157 PO (14:12)
[2016-12-27] MEDS ORDERED: HYDR4TAB78 PO (14:12)
--- NOTE | 2017-01-04 10:50 | Radiation Onc End of Treatmnt ---
End of Treatment Documentation Date Jan 04, 2017. 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 thoracic spine Onset Date: 06/28/2015 Stage: IV Permanent Comment: Admission for shortness of breath and weight loss Finding of a left upper lobe lesion and pleural effusion Status post thoracentesis 06/28/2015 and 08/03/2015 Malignant pleural effusion with adenocarcinoma Status post systemic chemotherapy 10/05/2015 to 03/21/2016, Taxol/Carboplatin/ Avastin Status post maintenance Avastin until April 2016, stopped due to proteinuria Follow-up PET/CT revealing metastasis to the cervical spine and right humerus Ongoing neck pain Status post completion of radiation therapy to the cervical spine and right humerus. Radiation was completed 11/14/2016. He received 3000 cGy to each area. Metastasis to the thoracic spine Initiation of radiation therapy. Treatment stopped 12/21/2016. He received 6 of a planned 10 fractions. He received 1800 cGy. Last Edited By: Bronwyn Bundy on Jan 04, 2017 10:35 History summary Mr. Mello is a 66-year-old male diagnosed with a initially locally advanced adenocarcinoma the lung. He was started on systemic chemotherapy and had an initial good response with improvement in his PET/CT scan from March 2016. More recently patient has noticed some decreasing appetite and weight loss and pain in the lower neck radiating into the left shoulder and scapular region. Repeat PET/CT scan from 10/03/2016 unfortunately showed evidence of progressive and recurrent disease in the left upper lobe mass and adenopathy. There was also multiple small pulmonary metastatic nodules. Also noted was interval development of several FDG avid skeletal lesions involving the right humeral head and lower cervical spine consistent with metastatic disease. I met with Mr. Mello to discuss the role of palliative radiation. It appears that his pain is progressing. He is on pain medication consisting of a Duragesic patch at 50 g and hydrocodone every 6 hours. This is providing improvement in pain but recently the pain has been getting more severe and persistent. I discussed with them the role of palliative radiation to this region. I told him that we would proceed with a CT simulation if he wished to receive palliative radiation. A consent form was reviewed with the patient. This listed the potential risks and side effects of local radiation to this region. These risks were read by the patient and initialed and the consent was read signed and witnessed. With the patient's consent we will proceed with scheduling his simulation. After reviewing his scan with radiology the lesion in the right humeral head, although not symptomatic, does place him at higher risk for fracture. I will therefore discussed with him palliative treatment to this site also. I told him we would treat him with 10 fractions delivered daily over 2 weeks. The patient was able to complete his course of palliative radiation. He was treated to the right humeral head and lower C-spine. He was treated from 2016 through 11/14/2016. He received 10 treatments over 13 elapsed days at 300 cGy per fraction for a total volume dose of 30 Gy. Patient did have response with clearance of the neck pain and marked improvement in the right shoulder pain. He recently presented with fevers and feeling poorly. He has continued to receive systemic chemotherapy under the care of Dr. Dale Denise. As part of his workup he underwent a CT scan of the chest to rule out pulmonary emboli. No emboli were identified. Mild dilatation of the ascending aorta measuring 4.4 cm and was stable. There were multiple mediastinal and hilar nodes and increased in size compared to the CT scan of 10/08/2016. Subcarinal and right hilar lymph nodes and also increased. The dominant left upper lobe mass had increased from 4.3 x 2.1 to 5.9 x 3.9 cm. Probable mediastinal invasion. There was interval development of a 1.2 cm lytic lesion within the right posterior inferior aspect of the T3 vertebral body which was not present on the 10/08/2016 scan area at the 2.6 cm right humeral head lytic lesion was again noted. This area was recently treated. The patient has noted increasing upper to mid back pain radiating into the left shoulder blade and left shoulder. He does continue to have some mild right shoulder pain which is much improved and tolerable. The pain in the back is moderate to at times severe. Patient is scheduled for an MRI of the thoracic spine to better evaluate the extent and severity of disease. Physics Course Treatment Site [employer] Start Date End Date Elapsed Days # TX Daily Dose (cGy) Total Dose (cGy) C3- T-Spine 3-field 15X 12/14/2016 12/21/2016 8 6 300 1800 Do documented final doses agree with prescribed doses? No If not, explain: The prescription is for 10 fractions. Treatment was stopped early at the patient's request. Is patients chart complete and accurate? Yes If not, explain: Notes/Comments: Previous radiation treatment: - C-Spine, 30 Gy in 10 fractions, finishing on 11/14/2016, - Right Humeral Head, 30 Gy in 10 fractions, finishing on 11/14/2016. Additional Notes Patient was seen initially as an inpatient. He had the complaint of pain between his shoulder blades. An MRI was obtained and did show multiple metastatic lesions within the lower cervical, thoracic, and lumbar spine. No evidence of epidural extension at this time. It was felt the patient would benefit from palliative treatment to the thoracic spine. Treatment was initiated. He had received 6 fractions of therapy. He had been discharged from the hospital. He unfortunately developed respiratory symptoms and was again hospitalized. At that time he made the decision to stop treatment. Our office was notified of his hospitalization and decision. Pain Management Initially had been admitted with severe pain in the thoracic spine area. At the end of treatment he was giving a pain level of 4. He had pain medication available as an inpatient and after discharge. Copies To Lesa Jimenez D.O.; Deni Denise D.O.
== END 2016-12-14 19:10 | disposition home or self-care (01) | DRG 864 ==
LOC: C.EDB 12:07 → C.2T 18:21 → ENRESERV 18:30 → C.4E 12-12 16:45 → ENRESERV 12-12 17:10
PROVIDERS: ADMIT Internal Medicine; ATTEND Internal Medicine
DX: R50.9 Fever, unspecified (principal); C34.12 Malignant neoplasm of upper lobe, left bronchus or lung; C79.51 Secondary malignant neoplasm of bone; I24.8 Other forms of acute ischemic heart disease; R01.1 Cardiac murmur, unspecified; L59.8 Other specified disorders of the skin and subcutaneous tissue related to radiation; D63.8 Anemia in other chronic diseases classified elsewhere; G89.3 Neoplasm related pain (acute) (chronic); J44.9 Chronic obstructive pulmonary disease, unspecified; I10 Essential (primary) hypertension; F32.9 Major depressive disorder, single episode, unspecified; Z87.891 Personal history of nicotine dependence; Z92.3 Personal history of irradiation; Z79.82 Long term (current) use of aspirin; Z79.891 Long term (current) use of opiate analgesic; Z79.899 Other long term (current) drug therapy; Z83.3 Family history of diabetes mellitus; Z82.49 Family history of ischemic heart disease and other diseases of the circulatory system

== ENCOUNTER 2016-12-25 11:31 | Inpatient (IN) | payer BC ==
[~2016-12-25] VITALS: Ht 180.3 cm; Wt 85.5 kg
[~2016-12-25 11:31] MED LIST changes: +ALBU18002 INH; -ALBUAER2 INH; -ASPI-232 PO; +ATV/1 PO; +DRGTP100 TD; +FENT50DI19 TOP; -FENT75DI2 TOP; +HYDR4TAB78 PO; +OMEP40CA41 PO; -OXYC-106 PO; +PRED-301 PO; +SPRIN/30 INH; -TIOTCAP INH
[2016-12-25] MEDS ORDERED: SODIUM CHLORIDE 0.9% 1000ML 1,000 ML IV ONE (12:09)
[2016-12-25] MEDS ORDERED: ALBUT/IPRATROP 3MG/0.5MG NEB 3 ML VIAL INH STA (12:12)
[2016-12-25] MEDS ORDERED: ONDANSETRON INJ 2 MG/ML 2 ML VIAL IV STA (12:54)
[2016-12-25 13:01] LABS: COMPLETE YES; EOS % 0.3 %; IG% 0.3 %; LYMPH % 4.3 %; LYMPH ABS # 0.29 K/uL (1.2-3.4); MEAN CELL VOLUME 89.2 fL (80-100); MEAN CORPUSCULAR HEMOGLOBIN 27.3 pg (25-34); MEAN CORPUSCULAR HGB CONC 30.6 g/dl (32-36); MEAN PLATELET VOLUME 8.5 fL (7.4-10.4); MONO % 4.5 %; NEUT % 90.6 %; PLATELET COUNT 166 K/uL (130-400); WHITE BLOOD COUNT 6.68 K/uL (4.8-10.8)
[2016-12-25 13:05] LABS: VEN BLD GAS O2 SATURATION 75.2 %; VEN BLOOD GAS BASE EXCESS 5.9 mEq/L
[2016-12-25 13:18] LABS: INR 1.2 (0.9-1.1); PARTIAL THROMBOPLASTIN RATIO 1.1; PROTHROMBIN TIME (PATIENT) 12.4 SECONDS (9.0-12.0)
[2016-12-25 13:22] LABS: BUN/CREATININE RATIO 18.2 (10-20); CALCIUM 8.4 mg/dl (8.5-10.1); CREATININE 0.8 mg/dl (0.60-1.40); MAGNESIUM 2.3 mg/dl (1.8-2.4); POTASSIUM 4.4 mmol/L (3.5-5.1)
--- NOTE | 2016-12-25 13:34 | DIAGNOSTIC IMAGING REPORT ---
CHEST ONE VIEW PORTABLE CLINICAL HISTORY: Sepsis. COMPARISON STUDY: Chest radiograph December 09, [address] December 11, 2016. FINDINGS: A right subclavian [id number]-s-Jocm is in place. Elevation of the left hemidiaphragm is unchanged. A left upper lobe mass is again noted. There is no pneumothorax or evidence of pulmonary edema. Mild left basilar opacity is noted. This is unchanged. The appearance of the chest is unchanged. Subtle reticulonodular interstitial thickening is unchanged. IMPRESSION: 1. No change in appearance of the chest with redemonstration of the left upper lobe mass consistent with malignancy. 2. Subtle reticulonodular interstitial thickening which likely corresponds to known pulmonary metastases. Electronically signed by: Jasbir Rivera M.D. 12/25/2016 1:32 PM Dictated Date/Time: 12/25/2016 1:30 PM
[2016-12-25 13:35] LABS: ALB/GLOB RATIO 0.6 (0.9-2); C-REACTIVE PROTEIN 12.7 mg/dl (0-0.29); CKMB/CK RATIO 11.2 (0-3.0)
--- NOTE | 2016-12-25 14:25 | EMERGENCY ROOM VISIT NOTE ---
History Report prepared by [place]: Joni Rothman Under the Supervision of: Dr. Nikos Babin D.O. First contact with patient: 12:06 Chief Complaint: ILLNESS Stated Complaint: SWEATS, CHILLS, BODY PAIN, N,V, FATIGUE History of Present Illness The patient is a 66 year old male who presents to the Emergency Room with complaints of a persistent cough beginning this week. The patient also complains of vomiting after coughing episodes. He has a history of lung cancer. He was seen in the ED recently for a fever of unknown source for which he was admitted to the hospital for five days. He is currently receiving chemotherapy and radiation for his cancer with his most recent chemotherapy treatment occurring less than a week ago. The patient notes that he has had a lack of appetite. His cough produces a clear sputum. He denies any fevers or chest pain. Per daughter, the patient's urine has a foul odor to it. Source of History: patient Onset: this week Quality: other (cough) Timing: other (persistent) Associated Symptoms: + vomiting (with coughing episodes), + urinary symptoms (foul odor), No fevers, No chest pain Review of Systems See HPI for pertinent positives & negatives. A total of 10 systems reviewed and were otherwise negative. Past Medical & Surgical Medical Problems: (1) Depression (2) Elevated troponin (3) Lung mass (4) Nausea & vomiting (5) Shortness of breath Surgical Problems: (1) S/P bronchoscopy with biopsy Family History FH: diabetes mellitus FH: heart disease Gallbladder disease Social History Smoking Status: Former Smoker Alcohol Use: occasionally Marital Status: Housing Status: lives with family Occupation Status: retired Current/Historical Medications Scheduled Budesonide/Formoterol Fumarate (Symbicort 160/4.5 Inhaler), 2 PUFFS INH BID Bupropion (Wellbutrin Sr), 200 MG PO AM Bupropion (Wellbutrin Sr), 150 MG PO NOON Fentanyl (Fentanyl), 1 PATCH TD Q3D Fentanyl (Duragesic), 50 MCG TOP Q72H Furosemide (Lasix), 20 MG PO QAM Lisinopril (Zestril), 40 MG PO QAM Omeprazole (Prilosec), 1 CAP PO QAM Prednisone (Prednisone), 5 MG PO DAILY Tiotropium [place] (Spiriva Handihaler), 1 CAP INH DAILY Scheduled PRN Albuterol Sulfate (Proair Respiclick), 1 PUFF INH QID PRN for SOB/Wheezing Hydromorphone Hcl (Dilaudid), 1 TAB PO Q3H PRN for Pain Lorazepam (Ativan), 1 MG PO Q6H PRN for Anxiety/Agitation Allergies Coded Allergies: Iodinated Diagnostic Agents (Verified Adverse Reaction, Intermediate, Muscle cramping - cardiac stress test dye, 12/25/16) Physical Exam Vital Signs Date Time Temp Pulse Resp B/P (MAP) Pulse Ox O2 Delivery O2 Flow Rate FiO2 12/25/16 13:54 83 18 117/52 98 Room Air 12/25/16 13:42 85 12/25/16 11:55 36.9 96 14 112/70 91 Room Air Physical Exam GENERAL: Patient is listless, but does not appear to be in pain. Answers questions appropriately. EYES: The conjunctivae are clear. The pupils are round and reactive. EARS, NOSE, MOUTH AND THROAT: The nose is without any evidence of any deformity. Mucous membranes are moist tongue is midline NECK: The neck is nontender and supple. RESPIRATORY: Diminished throughout. Rales in all lung renee. No tachypnea or conversational dyspnea noted. CARDIOVASCULAR: Regular rate and rhythm with a systolic murmur suggested. GASTROINTESTINAL: The abdomen is soft. Bowel sounds are present in all quadrants. Abdomen is nontender MUSCULOSKELETAL/EXTREMITIES: There is no evidence of gross deformity full range of motion is noted in the hips and shoulders SKIN: There is no obvious evidence of any rash. There are no petechiae, pallor or cyanosis noted. NEUROLOGIC: Patient is awake alert and oriented x3 strength is symmetric. Medical Decision & Procedures ER Provider Diagnostic Interpretation: X-ray results as stated below per interpretation by me and the radiologist. CHEST ONE VIEW PORTABLE FINDINGS: A right subclavian Ihhczf-z-Eukz is in place. Elevation of the left hemidiaphragm is unchanged. A left upper lobe mass is again noted. There is no pneumothorax or evidence of pulmonary edema. Mild left basilar opacity is noted. This is unchanged. The appearance of the chest is unchanged. Subtle reticulonodular interstitial thickening is unchanged. IMPRESSION: 1. No change in appearance of the chest with redemonstration of the left upper lobe mass consistent with malignancy. 2. Subtle reticulonodular interstitial thickening which likely corresponds to known pulmonary metastases. Electronically signed by: Jasbir Rivera M.D. 12/25/2016 1:32 PM Laboratory Results Test 12/25/16 12:45 12/25/16 12:46 Immature Granulocyte % (Auto) 0.3 % White Blood Count 6.68 K/uL (4.8-10.8) Red Blood Count 3.70 M/uL (4.7-6.1) Hemoglobin 10.1 g/dL (14.0-18.0) Hematocrit 33.0 % (42-52) Mean Corpuscular Volume 89.2 fL (80-100) Mean Corpuscular Hemoglobin 27.3 pg (25-34) Mean Corpuscular Hemoglobin Concent 30.6 g/dl (32-36) Platelet Count 166 K/uL (130-400) Mean Platelet Volume 8.5 fL (7.4-10.4) Neutrophils (%) (Auto) 90.6 % Lymphocytes (%) (Auto) 4.3 % Monocytes (%) (Auto) 4.5 % Eosinophils (%) (Auto) 0.3 % Basophils (%) (Auto) 0.0 % Neutrophils # (Auto) 6.05 K/uL (1.4-6.5) Lymphocytes # (Auto) 0.29 K/uL (1.2-3.4) Monocytes # (Auto) 0.30 K/uL (0.11-0.59) Eosinophils # (Auto) 0.02 K/uL (0-0.5) Basophils # (Auto) 0.00 K/uL (0-0.2) Immature Granulocyte # (Auto) 0.02 K/uL (0.00-0.02) Erythrocyte Sedimentation Rate 24 mm/hr (0-14) Prothrombin Time 12.4 SECONDS (9.0-12.0) Prothromb Time International Ratio 1.2 (0.9-1.1) Activated Partial Thromboplast Time 27.6 SECONDS (21.0-31.0) Partial Thromboplastin Ratio 1.1 Magnesium Level 2.3 mg/dl (1.8-2.4) Total Bilirubin 0.7 mg/dl (0.2-1) Aspartate Amino Transf (AST/SGOT) 22 U/L (15-37) Alanine Aminotransferase (ALT/SGPT) 18 U/L (12-78) Alkaline Phosphatase 75 U/L (45-117) Total Creatine Kinase 154 U/L (39-308) C-Reactive Protein 12.70 mg/dl (0-0.29) Pro-B-Type Natriuretic Peptide 1327 pg/ml (0-900) Total Protein 6.2 gm/dl (6.4-8.2) Albumin 2.4 gm/dl (3.4-5.0) Globulin 3.8 gm/dl (2.5-4.0) Albumin/Globulin Ratio 0.6 (0.9-2) Lipase 45 U/L (73-393) Random Cortisol 29.89 mcg/dl Venous Blood pH 7.44 (7.36-7.41) Venous Blood Partial Pressure CO2 46 mmHg (38.0-50.0) Venous Blood Partial Pressure O2 42 mmHg Venous Blood HCO3 31 mmol/L Venous Blood Oxygen Saturation 75.2 % Venous Blood Base Excess 5.9 mEq/L Laboratory results per my review. Medications Administered Medications (Trade) Dose Ordered Sig/Tila Route Start Time Stop Time Status Last Admin Dose Admin Albuterol/ Ipratropium (Duoneb) 3 ml NOW STAT INH 12/25/16 12:12 12/25/16 12:13 DC 12/25/16 12:34 3 ML Ondansetron HCl (Zofran Inj) 4 mg NOW STAT IV 12/25/16 12:54 12/25/16 12:55 DC 12/25/16 12:59 4 MG Ondansetron HCl (Zofran Inj) 4 mg Q6H PRN IV 12/25/16 15:30 01/24/17 15:29 12/25/16 23:10 4 MG Morphine Sulfate (MoRPHine SULFATE INJ) 2 mg Q30M PRN IV 12/25/16 15:30 01/08/17 15:29 12/26/16 08:39 2 MG Hydromorphone HCl (Dilaudid Tab) 4 mg Q3H PRN PO 12/25/16 15:30 01/08/17 15:29 12/26/16 07:06 4 MG ECG Indication: vomiting Rate (beats per minute): 84 Rhythm: normal sinus Findings: ST elevation (inferior and lateral), other (No reciprocal changes noted. Could be consistent with STEMI vs myocarditis vs pericarditis) Comparison ECG Date: August 12, 2015 Change: Changes are new. ED Course 1207: The patient was evaluated in room A3. A complete history and physical examination were performed. 1209: Ordered NSS 1,000 ml @ 999 mls/hr IV. 1212: Ordered DuoNeb 3 mL INH. 1254: Ordered Zofran Inj 4 mg IV. 1350: Upon reevaluation, the patient is resting comfortably. I discussed results and treatment plan with him. He verbalizes agreement and understanding. I spoke with [place]. Adorno of the [facility]. The patient will be evaluated for further management and care. Medical Decision Differential diagnosis: Etiologies such as metabolic, infection, hypo/hyperglycemia, electrolyte abnormalities, cardiac sources, intracerebral event, toxicologic, neurologic, as well as others were entertained. Nursing notes reviewed. Additional history is obtained from the patient's daughter. The patient is a 66-year-old male who presented to the emergency department for an evaluation of cough difficulty breathing and not feeling well. The patient has a history of lung cancer. I took care of this patient recently at the end of last month for a febrile illness. No definite cause was found for his fever but he was kept in the hospital for further management and to ensure this was not a case of bacteremia. The patient was discharged home and was feeling well until the last few days. His EKG did show ST segment elevation but I do not feel this is consistent with a STEMI. He was found have an elevated troponin but there were no reciprocal changes and currently the patient has no chest discomfort. I discussed this case with the on-call [facility] teradata solution architect. A stat echocardiogram was ordered. I do feel at this time the patient likely suffering from myocarditis and pericarditis. It still could be related to an ischemic episode but his echocardiogram was not suggestive of that. Given the patient's lack of symptoms which would be consistent with ongoing ischemia I discussed this case with the on-call [facility] hospitalist as well as the on -call teradata solution architect. At this time we will continue to observe the patient. I discussed the patient's laboratory radiographic studies with him and his daughter. I also discussed my concerns about his EKG and his laboratory findings. Medication Reconcilliation Current Medication List: was personally reviewed by me Blood Pressure Screening Patient's blood pressure: Normal blood pressure Blood pressure disposition: Did not require urgent referral Consults Time Called: 1340 Consulting Physician: Dr. Hensley -Cardiology Returned Call: [phone] I discussed the patient's case with Dr. Mirza. He feels that the patient is likely not having a heart attack, but may have myocarditis or chemotherapy related heart strain. He recommends admission to the hospital. Additional Consults: Time Called: 1347 Consulted Physician: Dr. Adorno -[facility] Returned Call: [phone] Additional Comments: I discussed the patient's case with Dr. Adorno. The patient will be evaluated for further management. Impression Primary Impression: Weakness Additional Impressions: Myocarditis Pericarditis Abnormal ECG Elevated troponin NSTEMI (non-ST elevated myocardial infarction) Scribe Attestation The scribe's documentation has been prepared under my direction and personally reviewed by me in its entirety. I confirm that the note above accurately reflects all work, treatment, procedures, and medical decision making performed by me. Departure Information Dispostion Being Evaluated By Hospitalist Referrals Lesa JimenezD.OShanell (PCP) Patient Instructions My [facility] Problem Qualifiers Additional Impressions: Myocarditis Myocarditis type: unspecified Chronicity: acute Qualified Codes: I40.9 - Acute myocarditis, unspecified Pericarditis Pericarditis type: unspecified type Chronicity: unspecified Qualified Codes : I31.9 - Disease of pericardium, unspecified
[2016-12-25] MEDS ORDERED: NITROGLYCERIN 0.4 MG SL PER TAB CHARGE SL PRN (15:30)
[2016-12-25] MEDS ORDERED: MoRPHine SULFATE 2 MG/ML CARP IV PRN (15:30)
[2016-12-25] MEDS ORDERED: LORAZEPAM 1 MG TAB PO PRN (15:30)
[2016-12-25] MEDS ORDERED: ACETAMINOPHEN 325 MG TAB PO PRN (15:30)
[2016-12-25] MEDS ORDERED: POLYETHYLENE (MIRALAX) 17 GM PACK PO PRN (15:30)
[2016-12-25] MEDS ORDERED: ALUMINUM/MAGNESIUM/SIMETH (MAALOX MAX) 30 ML UDC PO PRN (15:30)
[2016-12-25] MEDS ORDERED: ALBUTEROL HFA 8 GM INHALER INH PRN (15:30)
[2016-12-25] MEDS ORDERED: MAGNESIUM HYDROXIDE SUSP 30 ML UDC PO PRN (15:30)
[2016-12-25] MEDS ORDERED: MoRPHine SULFATE 2 MG/ML CARP ONE (15:54)
[2016-12-25 16:05] VITALS: BP 119/64; PULSE 81; TEMP 36.9; O2SAT 98; Ht 180.3 cm; Wt 85.5 kg
--- NOTE | 2016-12-25 16:15 | History and Physical ---
History & Physical Date & Time of Service: Dec 25, 2016 at 15:42 Chief Complaint: Sweats, Chills, Body Pain, N,V, Fatigue Primary Care Physician: Lesa Jimneez D.O. History of Present Illness Source: patient, family (daughter at bedside ), clinic records, hospital records Patient is a pleasant 66 y/o male, with PMHx of metastatic non-small cell lung carcinoma, COPD, VALENTIN, chronic pain, HTN, and depression, who presented to the ED because of worsening cough, SOB, fatigue, nausea/vomiting, and decreased appetite x a few days. The patient was most recently admitted to [facility] on 12/09- 12/17 due to fever of unknown origin and new heart murmur was found. Patient had an unremarkable extensive workup; BCx negative x4, UA negative, echocardiogram negative for vegetation/endocarditis, CT negative for PE, lyme and influenza negative, c.diff negative. He was treated with IV antibiotics. Additionally, patient had chest CT which showed worsening left-sided cancer and bone mets. Patient was discharged to home with plan to discuss hospice care with Dr. Denise at later date, but continue radiation/chemo treatment- meeting has not occurred yet, but patient/family wanting to speak with palliative care at this time. Patient's last chemo treatment was on 12/19. He recently restarted radiation on 12/12. Daughter notes nausea and vomiting are not new for patient due to chemo/radiation, but he ran out of his Compazine/Zofran. Cough and SOB have been slowly progressing, but he notes worsened greatly in the last 2-3 days. Cough production is clear/mildly yellow in color. Additionally, patient notes he has chronic swelling of his lower extremities, but has worsened since last admission due to starting Prednisone for appetite and bone pain. He denies weight gain; he has actually lost weight. He admits to orthopnea, but states he has been SOB while lying flat for "a long time." Patient has been checking temperature routinely since discharge, runs 98-99 F. Patient denies any fever, chills, sweats, lightheadedness, dizziness, vision changes, CP, palpitations, wheezing, abdominal pain, diarrhea, urinary symptoms , melena, numbness/tingling, anxiety/depression, active bleeding, or new skin discoloration/changes. During ED workup, patient was found to have elevated trop at 3.[address] elevation in lateral/inferior leads. ED physician discussed case w/ Dr. Hollins who had low suspicion for SC. Ordered stat ECHO- Dr. Quevedo discussed w / ED physician; ECHO unchanged, does not think it is ischemia but likely pericarditis vs myocarditis. Past Medical/Surgical History Past Medical History: Metastatic lung cancer Chronic pain COPD VALENTIN HTN depression Family History FH: diabetes mellitus FH: heart disease Gallbladder disease Social History Smoking Status: Former Smoker Marital Status: Housing status: lives with significant other Occupational Status: retired Multi-Drug Resistant Organisms History of MDRO: No Allergies Coded Allergies: Iodinated Diagnostic Agents (Verified Adverse Reaction, Intermediate, Muscle cramping - cardiac stress test dye, 12/25/16) Home Medications Scheduled Budesonide/Formoterol Fumarate (Symbicort 160/4.5 Inhaler), 2 PUFFS INH BID Bupropion (Wellbutrin Sr), 200 MG PO AM Bupropion (Wellbutrin Sr), 150 MG PO NOON Fentanyl (Fentanyl), 1 PATCH TD Q3D Fentanyl (Duragesic), 50 MCG TOP Q72H Furosemide (Lasix), 20 MG PO QAM Lisinopril (Zestril), 40 MG PO QAM Omeprazole (Prilosec), 1 CAP PO QAM Prednisone (Prednisone), 5 MG PO DAILY Tiotropium [place] (Spiriva Handihaler), 1 CAP INH DAILY Scheduled PRN Albuterol Sulfate (Proair Respiclick), 1 PUFF INH QID PRN for SOB/Wheezing Hydromorphone Hcl (Dilaudid), 1 TAB PO Q3H PRN for Pain Lorazepam (Ativan), 1 MG PO Q6H PRN for Anxiety/Agitation Physical Exam Vital Signs Date Time Temp Pulse Resp B/P (MAP) Pulse Ox O2 Delivery O2 Flow Rate FiO2 12/25/16 13:54 83 18 117/52 98 Room Air 12/25/16 13:42 85 12/25/16 11:55 36.9 96 14 112/70 91 Room Air General Appearance: no apparent distress, + pertinent finding (4L O2 NC) Eyes: normal inspection, PERRL ENT: hearing grossly normal Neck: no adenopathy Respiratory/Chest: no respiratory distress, no accessory muscle use, + decreased breath sounds Cardiovascular: regular rate, rhythm, + systolic murmur Abdomen/GI: normal bowel sounds, non tender, soft Back: normal inspection Extremities/Musculoskelatal: no calf tenderness, + swelling (+1 pitting edema of bilateral lower extremities ), + pertinent finding (erythema noted to bilateral medial foot/ankle- per patient/daughter, chronic ) Neurologic/Psych: alert, oriented x 3, + depressed affect Skin: normal color, warm/dry, no rash Diagnostics Laboratory Results Results Past 24 Hours Test 12/25/16 12:45 12/25/16 12:46 Range/Units White Blood Count 6.68 4.8-10.8 K/uL Red Blood Count 3.70 4.7-6.1 M/uL Hemoglobin 10.1 14.0-18.0 g/dL Hematocrit 33.0 42-52 % Mean Corpuscular Volume 89.2 80-100 fL Mean Corpuscular Hemoglobin 27.3 25-34 pg Mean Corpuscular Hemoglobin Concent 30.6 32-36 g/dl Platelet Count 166 130-400 K/uL Mean Platelet Volume 8.5 7.4-10.4 fL Neutrophils (%) (Auto) 90.6 % Lymphocytes (%) (Auto) 4.3 % Monocytes (%) (Auto) 4.5 % Eosinophils (%) (Auto) 0.3 % Basophils (%) (Auto) 0.0 % Neutrophils # (Auto) 6.05 1.4-6.5 K/uL Lymphocytes # (Auto) 0.29 1.2-3.4 K/uL Monocytes # (Auto) 0.30 0.11-0.59 K/uL Eosinophils # (Auto) 0.02 0-0.5 K/uL Basophils # (Auto) 0.00 0-0.2 K/uL RDW Standard Deviation 50.5 36.4-46.3 fL RDW Coefficient of Variation 15.8 11.5-14.5 % Immature Granulocyte % (Auto) 0.3 % Immature Granulocyte # (Auto) 0.02 0.00-0.02 K/uL Erythrocyte Sedimentation Rate 24 0-14 mm/hr Prothrombin Time 12.4 9.0-12.0 SECONDS Prothromb Time International Ratio 1.2 0.9-1.1 Activated Partial Thromboplast Time 27.6 21.0-31.0 SECONDS Partial Thromboplastin Ratio 1.1 Sodium Level 133 136-145 mmol/L Potassium Level 4.4 3.5-5.1 mmol/L Chloride Level 98 98-107 mmol/L Carbon Dioxide Level 33 21-32 mmol/L Anion Gap 2.0 3-11 mmol/L Blood Urea Nitrogen 15 7-18 mg/dl Creatinine 0.80 0.60-1.40 mg/dl Est Creatinine Clear Calc Drug Dose 99.3 ml/min Estimated GFR () 109.4 Estimated GFR (Non- 94.4 BUN/Creatinine Ratio 18.2 10-20 Random Glucose 120 70-99 mg/dl Calcium Level 8.4 8.5-10.1 mg/dl Magnesium Level 2.3 1.8-2.4 mg/dl Total Bilirubin 0.7 0.2-1 mg/dl Aspartate Amino Transf (AST/SGOT) 22 15-37 U/L Alanine Aminotransferase (ALT/SGPT) 18 12-78 U/L Alkaline Phosphatase 75 45-117 U/L Total Creatine Kinase 154 39-308 U/L Creatine Kinase MB 17.3 0.5-3.6 ng/ml Creatine Kinase MB Ratio 11.2 0-3.0 Troponin I 3.480 0-0.045 ng/ml C-Reactive Protein 12.70 0-0.29 mg/dl Pro-B-Type Natriuretic Peptide 1327 0-900 pg/ml Total Protein 6.2 6.4-8.2 gm/dl Albumin 2.4 3.4-5.0 gm/dl Globulin 3.8 2.5-4.0 gm/dl Albumin/Globulin Ratio 0.6 0.9-2 Lipase 45 73-393 U/L Random Cortisol 29.89 mcg/dl Venous Blood pH 7.44 7.36-7.41 Venous Blood Partial Pressure CO2 46 38.0-50.0 mmHg Venous Blood Partial Pressure O2 42 mmHg Venous Blood HCO3 31 mmol/L Venous Blood Oxygen Saturation 75.2 % Venous Blood Base Excess 5.9 mEq/L Microbiology Results 12/25/16 Blood Culture, Received Pending 12/25/16 Blood Culture, Received Pending Diagnostic Radiology CHEST ONE VIEW PORTABLE CLINICAL HISTORY: Sepsis. COMPARISON STUDY: Chest radiograph December 09, [address] December 11, 2016. FINDINGS: A right subclavian [id number] is in place. Elevation of the left hemidiaphragm is unchanged. A left upper lobe mass is again noted. There is no pneumothorax or evidence of pulmonary edema. Mild left basilar opacity is noted. This is unchanged. The appearance of the chest is unchanged. Subtle reticulonodular interstitial thickening is unchanged. IMPRESSION: 1. No change in appearance of the chest with redemonstration of the left upper lobe mass consistent with malignancy. 2. Subtle reticulonodular interstitial thickening which likely corresponds to known pulmonary metastases. Electronically signed by: Jasbir Rivera M.D. 12/25/2016 1:32 PM Dictated Date/Time: 12/25/2016 1:30 PM The status of this report is Signed. Draft = Not yet reviewed or approved by Radiologist. Signed = Reviewed and approved by Radiologist. EKG JOSIAH UNNEZ ID:[id number] 25-DEC-2016 12:28:16 [facility] Normal sinus rhythm Early repolarization Normal ECG When compared with ECG of 09-DEC-2016 13:11, ST elevation now present in Lateral leads 25mm/s 10mm/mV 150Hz 8.0 SP2 12SL 241 GIGI: 10 Referred by: Referred Self Unconfirmed Vent. rate 84 BPM TX interval 148 ms QRS duration 94 ms QT/QTc 374/441 ms P-R-T axes 28 37 54 1950 (66 yr) Male 112in 1lb Room: Loc:15 Communications Manager:TENZIN Ackerman ind: Impression Assessment and Plan Patient is a pleasant 66 y/o male, with PMHx of metastatic non-small cell lung carcinoma, COPD, chronic pain, HTN, and depression, who presented to the ED because of worsening cough, SOB, fatigue, nausea/vomiting, and decreased appetite x a few days. Elevated troponin, secondary to SC vs myocarditis vs pericarditis vs other etiology: - Admit to tele for cardiac monitoring - O2 protocol - Trend cardiac enzymes- initial trop 3.480 - ECHO pending - Follow EKG QAM and PRN CP - Continue Lasix 20 mg daily- ?fluid overload, appreciate cardiology input - Start ASA 81 mg daily - IV Morphine PRN CP - Cardiology consulted, appreciate recommendations -- Per ED physician, cardiology reviewed ECHO, does NOT think it is ischemic ; likely myocarditis/pericarditis Metastatic lung carcinoma, COPD, VALENTIN- follows w/ Dr. Denise: - Consult palliative care per patient/family wishes - Continue ProAir, Symbicort, Spiriva, Ativan PRN - O2 protocol, wean as tolerated- currently does not have O2 supplement at home - daughter states they are in the process of getting it - CPAP HS Worsening cough, SOB, fatigue, and decreased appetite, ?secondary to above vs HF vs other etiology: - Palliative care consultation - Consult Dr. Denise as patient/family want him involved in final decision - Cardiology consulted HTN: Continue Lisinopril 40 mg daily Chronic anemia- STABLE Chronic pain: Continue Fentanyl patch, Dilaudid 4 mg q3 hrs PRN, Prednisone 5 mg daily Depression: Continue Wellbutrin 350 mg daily GI prophylaxis: Protonix DVT prophylaxis: Heparin SQ; avoiding IV Heparin at this time due to cardiology having low suspicion for SC/?brain metastasis Code Status: LEVEL I, FULL Dispo: From home, lives w/ family- vp digital marketing social media and crm consulted Resident Physician Supervision Note: I was present with Camryn Ordaz during the history and exam. I discussed the case with the PA and agree with the findings and plan as documented in the note. Any exceptions or clarifications are listed here: 66 y/o M Hx met lung CA - currently receiving chemo and restarted rad on 12/12 - is experiencing some functional decline in and a constellation of symptoms inc weakness, SOB, poor dusty. Initial troponin was elevated at 3.4 - source unclear as he had an echo which was not consistent with AMI - a CT on 12/12 did not reveal any PEs - there has been no increase in 02 use , tachycardia or hypoxia above baseline. OE Pale middle -aged male - no distress S1,2 +M CTAB - poor effort NT, ND No CCE P: IVF and supportive measures at present Would connsider repeat CT if no improvement as he is at risk of PE and a trop is elevated Serial enzymes ordered - card. consulted Documented By: Spencer Adorno Level of Care Telemetry Resuscitation Status FULL RESUSCITATION VTE Prophylaxis VTE Risk Assessment Done? Y/N: Yes Risk Level: Moderate Given or contraindicated: Unfractionated heparin SQ, T.E.D. Stockings, SCD's
--- NOTE | 2016-12-25 16:27 | ECHOCARDIOGRAM REPORT ---
*NOTICE TO RECEIVING [employer] This information is strictly Confidential and protected under [place] law. [place] law prohibits you from making any further disclosure of this information unless further disclosure is expressly permitted by the written consent of the person to whom it pertains or is authorized by law. A general authorization for the release of medical or other information is not sufficient for this purpose. Hospital accepts no responsibility if the information is made available to any other person, INCLUDING THE PATIENT. Interpretation Summary * Name: JOSIAH NUNEZ Study Date: 12/25/2016 02:30 PM BP: 117/52 mmHg * Patient Location: [facility] HR: 83 * : 1950 (M/d/yyyy) Gender: Male Height: 71 in * Age: 66 yrs Ethnicity: CA Weight: 191 lb * Ordering Physician: Nikos Babin * Referring Physician: Self, Referred * Performed By: Edinson Orosco RCS * * Reason For Study: Pericarditis, Abnormal EKG * BSA: 2.1 m2 * Limited follow up 2D and color flow study. * Normal left ventricular systolic function. * Mild concentric left ventricular hypertrophy. * No pericardial effusion. * Normal pericardium. * Trace aortic regurgitation. * Compared to echo of 12/10/2016, no significant change in LV systolic function. Procedure Details * A two-dimensional transthoracic echocardiogram was performed. * A contrast injection of Definity was performed to improve assessment of LV function. * Contrast was injected into an intravenous site in the right arm. * One vial of Definity ultrasound contrast was diluted in normal saline to a total volume of 10 ml. A total of '2' ml of solution was administered during imaging. * Lot # [id number] of Definity utilized for procedure. * Expiration date . * The attending nurse who injected the contrast agent was [employer] RN. Left Ventricle * The left ventricle is normal in size. * There is borderline concentric left ventricular hypertrophy. * Ejection Fraction = 65-70%. * Left ventricular systolic function is normal. Mitral Valve * The mitral valve is grossly normal. * Significant mitral regurgitation is absent. Tricuspid Valve * The tricuspid valve is not well visualized. * Significant tricuspid regurgitation is absent. Aortic Valve * The aortic valve is not well visualized. It appear's to be trileaflet and to open adequately. * No hemodynamically significant valvular aortic stenosis. * Trace aortic regurgitation. Pulmonic Valve * The pulmonic valve is not well visualized. * There is no significant pulmonary regurgitation. Pericardium/Pleural * There is no pericardial effusion. * The pericardium appears normal. MMode 2D Measurements and Calculations LVAd ap4 43.5 cm\S\2 LVLd ap4 9.4 cm EDV(MOD-sp4) 165.0 ml LVAs ap4 23.1 cm\S\2 LVLs ap4 7.5 cm ESV(MOD-sp4) 58.0 ml EF(MOD-sp4) 64.8 % LVAd ap2 34.9 cm\S\2 LVLd ap2 8.9 cm EDV(MOD-sp2) 113.0 ml LVAs ap2 19.8 cm\S\2 LVLs ap2 7.6 cm ESV(MOD-sp2) 44.0 ml EF(MOD-sp2) 61.1 % CO(MOD-sp4) 8.8 l/min CI(MOD-sp4) 4.2 l/min/m\S\2 SV(MOD-sp4) 107.0 ml SI(MOD-sp4) 51.7 ml/m\S\2 CO(MOD-sp2) 5.7 l/min CI(MOD-sp2) 2.7 l/min/m\S\2 SV(MOD-sp2) 69.0 ml SI(MOD-sp2) 33.4 ml/m\S\2
[2016-12-25 16:32] VITALS: BP 119/73; PULSE 82; TEMP 37.3; O2SAT 96
[2016-12-25] MEDS: HYDROmorphone HCL 2 MG TAB PO PRN ×3 (16:38→23:10)
[2016-12-25 19:18] VITALS: BP 107/65; PULSE 82; TEMP 37.1; O2SAT 95
--- NOTE | 2016-12-25 20:07 | CARDIOLOGY CONSULTATION ---
DATE OF CONSULTATION: 12/25/2016 PRIMARY CARE PHYSICIAN: Lesa Jimenez DO. ATTENDING AND REFERRING PHYSICIAN: Spencer Adorno MD. HISTORY OF PRESENT ILLNESS: The patient is a 66-year-old white male. No prior history of heart disease. He has metastatic nonsmall cell lung cancer. He presented in June 2015 to [facility] with complaints of dyspnea. He has a history of cigarette smoking. On that admission, he underwent insertion of a PleurX catheter and navigational bronchoscopy. A diagnosis could not be made on the pathology at that time. He was admitted in July of 2015 to [facility], where he underwent left video assisted thorascopy with pleural biopsy. Limited parietal pleurectomy. The pathology returned with metastatic adenocarcinoma consistent with primary lung cancer. Thereafter, the patient was treated with systemic chemotherapy from 10/05/2015-03/21/2016. He received Taxol, carboplatin, and Avastin. Maintenance Avastin for April 2016. At that time, it was stopped due to proteinuria. On followup PET/CT scanning, there was evidence of metastases to the cervical spine, and right humerus. He thereafter underwent palliative radiation therapy for the bone metastases. The radiation was completed on 11/14/2016. His most recent admission prior to this admission was from 12/09/2016 through 12/14/2016. He had fever and fatigue. The etiology of the fever was not determined. Blood cultures x4 were negative. Stool for C. difficile toxin was negative. A heart murmur was documented on that admission. Subsequent echocardiogram on December 10 revealed hyperdynamic LV systolic function. Borderline LVH. Mild aortic regurgitation. Type 1 LV diastolic dysfunction. No significant mitral or tricuspid valvular disease. During that admission, his troponin I was mildly elevated at 0.060. On admission, a CT scan of the chest revealed no evidence of pulmonary emboli. There is moderate progression of metastatic disease compared to a CT scan of 10/08/2016. There was a significant increase in the size of a left upper lobe mass as well as mediastinal and hilar lymphadenopathy. Moderate emphysema was also noted. Lower extremity venous duplex scans were negative for evidence of deep venous thrombosis. MRI of thoracic spine revealed multiple metastatic lesions in the lower cervical, thoracic, and lumbar spine. The patient presented to the Emergency Department today with a 3-day history of worsening dyspnea and weakness. He has also had recurrent nausea and vomiting. Last week, he did receive chemotherapy with Opdivo. The patient denies any chest pain. His dyspnea is worse when he is supine. Because of this, he has been sleeping in a recliner at approximately 45 degrees head of bed elevation. He denies any dyspnea at rest, dyspnea with walking. No palpitations, lightheadedness, or syncope. No pleuritic chest pain. No significant temperature elevations. He states the highest temperatures that he has recorded since discharge on December 14 has been 99 . The patient states he has chronic leg edema since he was diagnosed with lung cancer. The edema has increased since he was started on prednisone. The prednisone had been initiated for pain relief as well as to stimulate his appetite. The patient states that his dyspnea is worse in humid weather. The dyspnea can sometimes be associated with wheezing. He does have a history of COPD and reactive airway disease. Other than the heart murmur, the patient denies any prior history of any heart disease. No history of myocardial infarction or angina. No history of pericardial heart disease. No history of congestive heart failure. No history of arrhythmias. PAST MEDICAL HISTORY: 1. Metastatic lung cancer as documented above. 2. Chronic obstructive pulmonary disease and reactive airway disease. 3. History of obstructive sleep apnea. 4. Hypertension. 5. Depression. SOCIAL HISTORY: The patient is , lives with his . A former cigarette smoker. Occasional use of alcohol. He is retired. FAMILY HISTORY: His father had a myocardial infarction when he was in his mid-60s. He at age 72. ALLERGIES AND ADVERSE DRUG REACTIONS: IODINATED CONTRAST AGENTS. CURRENT MEDICATIONS: Bupropion 150 mg p.o. daily, aspirin 81 mg daily, bupropion 200 mg daily, fentanyl patch 100 mcg every 3 days, fentanyl patch 50 mcg every 3 days, furosemide 20 mg daily, lisinopril 40 mg daily, prednisone 5 mg daily, Spiriva HandiHaler 1 puff daily, pantoprazole 40 mg daily, Symbicort 2 puffs b.i.d., subQ heparin 5000 units q. 12 hours, and several p.r.n. medications. REVIEW OF SYSTEMS: 1. As above. 2. Fatigue. 3. Malaise. 4. Diffuse weakness. No focal motor weakness. 5. Diffuse myalgias. 6. No urinary complaints. 7. No headache, earache, or sore throat. 8. Cough productive of mostly clear sputum. No hemoptysis. 9. No symptoms of bleeding. 10. No urinary complaints. PHYSICAL EXAMINATION: GENERAL: The patient is sitting up in his bed. No distress. VITAL SIGNS: Oral temperature this afternoon 37.3. Pulse 82. Blood pressure 119/73, pulse oximetry on 2 liters per minute nasal cannula oxygen 96%. HEAD: Normal. EYES: Pupils equal and round. Anicteric. Conjunctivae normal. NECK: No jugular venous distention. No palpable masses or adenopathy. Carotids 2/2 bilaterally. Normal upstroke. No bruits. LUNGS: Normal respiratory effort. Decreased breath sounds left lower lung field. Slight decreased breath sounds right base. Rhonchi in both lower lung renee, left greater than right. Scattered wheeze left lung field. HEART: PMI normal. No lifts or heaves. Regular rate and rhythm. S1, S2 normal. 2/6 systolic murmur second right intercostal space and the left sternal border. No diastolic murmur heard. No rub. ABDOMEN: Normal bowel sounds. Soft. Nontender. No palpable masses or organomegaly. EXTREMITIES: 1+ pretibial, ankle, and pedal edema bilaterally. No calf tenderness. No cyanosis or clubbing. NEUROLOGIC: Alert and oriented x3. Motor grossly intact. PSYCHIATRIC: Affect normal. DATA: Electrocardiogram performed today with sinus rhythm at a rate of 84 beats per minute. IL interval depression and ST segment elevations consistent with pericarditis. The ST segment elevations are present in leads I, II, III, aVF, V1-V6. Compared to an electrocardiogram of December 09, the ST segment depressions are more prominent. Echocardiogram performed today reveals no pericardial effusion. The pericardium appears normal. Normal LV ejection fraction. Estimated LV ejection fraction is 65-70%. No segmental wall motion abnormalities. Mild LVH. Trace aortic regurgitation. Chest x-ray performed today and reviewed by me shows left upper lobe mass. No evidence of congestive heart failure. There is an additional interstitial thickening present. LABORATORY DATA: Today with WBC 6.68, hemoglobin 10.1, hematocrit 33.0, platelet count 166. ESR 24. INR 1.2. PTT 27.6. Metabolic profile: Sodium 133, potassium 4.4, chloride 98, carbon dioxide 33, BUN 15, creatinine 0.80, random glucose 120. Magnesium 2.3. AST and ALT normal. CK total 154 ,CKMB of 17.3. Troponin I 3.480. C-reactive protein 12.70. ProB natriuretic peptide 1327. Albumin 2.4. ASSESSMENT: 1. Metastatic adenocarcinoma of the lung. First diagnosed in July 2015. Status post chemotherapy. Most recent chemotherapy was with an immune modulator. He is also status post palliative radiation therapy for bony metastases. 2. Electrocardiogram consistent with pericarditis. Elevated troponin I would suggest a component of myocarditis. Although rare with the Opdivo. This has been reported. Incidences less than 1%. Immune mechanism is the suspected etiology when this occurs. 3. Peripheral edema. He has a low serum albumin. He had proteinuria after chemotherapy. The patient also has decreased fluid intake. Recent venous duplex scan was negative for evidence of deep venous thrombosis. 4. No anginal type chest discomfort. 5. Normal to hyperdynamic left ventricular systolic function on echo. 6. No evidence of pericardial effusion or any significant pericardial abnormality on today's echo. 7. Suspect murmur secondary to his hyperdynamic left ventricular systolic function. Also, suspect that the elevated ProBNP is from his hyperdynamic left ventricular function. 8. Nausea and decreased appetite secondary to his metastatic cancer as well as the chemotherapy. RECOMMENDATIONS: 1. Colchicine 0.6 mg b.i.d. 2. Repeat electrocardiogram tomorrow. 3. Continue prednisone. In light of his prednisone therapy, will not start nonsteroidal anti-inflammatory drug therapy. If he developed symptoms of chest discomfort with the pericarditis would then consider increasing his prednisone dose or adding in an nonsteroidal anti-inflammatory drug. 4. Other than the electrocardiogram and repeat cardiac enzymes, no further cardiac workup at this time. Thank you for asking us to see this patient in cardiology consultation. [facility]hem[facility]
[2016-12-25] MEDS: BUDESONIDE/FORMOTEROL FUMARATE 160/4.5 60 PUFFS/INHALER INH SCH (20:20)
[2016-12-25] MEDS: HEPARIN SOD 5000 UNIT/0.5 ML CARP SQ SCH (20:24)
[2016-12-25] MEDS: ONDANSETRON INJ 2 MG/ML 2 ML VIAL IV PRN (23:10)
[2016-12-25 23:50] VITALS: BP 108/65; PULSE 80; TEMP 36.6; O2SAT 97
[2016-12-25 23:59] VITALS: O2SAT 97
[2016-12-26] VITALS (8 sets, daily range): BP systolic 101–113; BP diastolic 62–68; PULSE 78–94; TEMP 36.8–37.2; O2SAT 91–100
[2016-12-26] MEDS: CHECK FENTANYL PATCH PLACEMENT SCH ×3 (00:07→15:07)
[2016-12-26] MEDS: HYDROmorphone HCL 2 MG TAB PO PRN ×6 (03:13→21:09)
[2016-12-26 03:34] LABS: URINE APPEARANCE TURBID (CLEAR); URINE COLOR DK YELLOW; URINE EPITHELIAL CELL AUTO >30 /lpf (0-5); URINE NITRITE NEG (NEG); URINE SPECIFIC GRAVITY 1.033 (1.000-1.030); UROBILINOGEN NEG (NEG); ZZUR CULT IF INDIC CLEAN CATCH YES
[2016-12-26 03:45] LABS: MANUAL MICROSCOPIC REQUIRED? NO; REVIEW REQ? YES
[2016-12-26 03:46] LABS: URINE BILIRUBIN NEG (NEG)
[2016-12-26 05:33] LABS: URINE MUCUS PRESENT (NONE PRSENT)
[2016-12-26 06:43] LABS: HEMATOCRIT 33.7 % (42-52); MEAN CELL VOLUME 89.9 fL (80-100); MEAN CORPUSCULAR HEMOGLOBIN 27.5 pg (25-34); MEAN CORPUSCULAR HGB CONC 30.6 g/dl (32-36); MEAN PLATELET VOLUME 9.1 fL (7.4-10.4); PLATELET COUNT 185 K/uL (130-400); RED BLOOD COUNT 3.75 M/uL (4.7-6.1); WHITE BLOOD COUNT 7.58 K/uL (4.8-10.8)
[2016-12-26 07:19] LABS: BLOOD UREA NITROGEN 16 mg/dl (7-18); BUN/CREATININE RATIO 21.9 (10-20); CALCIUM 8.6 mg/dl (8.5-10.1); CARBON DIOXIDE 31 mmol/L (21-32); CHLORIDE 98 mmol/L (98-107); CREATININE 0.74 mg/dl (0.60-1.40); GLUCOSE 113 mg/dl (70-99); POTASSIUM 4.2 mmol/L (3.5-5.1); SODIUM 135 mmol/L (136-145)
[2016-12-26] MEDS: ASPIRIN 81 MG ECTAB PO SCH (08:26)
[2016-12-26] MEDS: TIOTROPIUM BROMIDE 5 PUFF/90 MCG INH INH SCH (08:26)
[2016-12-26] MEDS: FUROSEMIDE 20 MG TAB PO SCH (08:26)
[2016-12-26] MEDS: BUDESONIDE/FORMOTEROL FUMARATE 160/4.5 60 PUFFS/INHALER INH SCH ×2 (08:26→21:09)
[2016-12-26] MEDS: LISINOPRIL 40 MG TAB PO SCH (08:26)
[2016-12-26] MEDS: BuPROPion SR 100 MG TABCR PO SCH (08:27)
[2016-12-26] MEDS: PANTOprazole SOD 40 MG TAB PO SCH (08:27)
[2016-12-26] MEDS: HEPARIN SOD 5000 UNIT/0.5 ML CARP SQ SCH ×2 (08:28→21:12)
[2016-12-26] MEDS ORDERED: FENTANYL PATCH REMOVE & WASTE SCH ×2 (08:59)
[2016-12-26] MEDS ORDERED: FENTANYL 100 MCG/HR TDSY TD SCH (09:00)
[2016-12-26] MEDS ORDERED: FENTANYL 50 MCG/HR TDSY TD SCH (09:00)
--- NOTE | 2016-12-26 09:25 | ONCOLOGY CONSULTATION ---
DATE OF CONSULTATION: 12/26/2016 REASON FOR CONSULTATION: A 66-year-old gentleman with metastatic nonsmall cell lung cancer. HISTORY OF PRESENT ILLNESS: Grover is a very pleasant but unfortunate 66-year-old male well known to [facility] currently under my care for metastatic nonsmall cell lung cancer. Grover has recently as December 19 received his last dose of Nivolumab one of the new PD-L1 inhibitors. Grover has had 3 doses thus far. Unfortunately, his disease has been refractory to all treatments administered to date. He has been hospitalized frequently over the past couple weeks with acute myocardial infarction, intractable pain along with nausea and vomiting. He was subsequently discharged home recently with plans to discuss hospice care and continues to receive palliative radiation therapy. Overall, Grover is in a slow steady clinical decline. His disease has progressed radiographically and I believe at this point he fully understands the terminal nature of his disease. Grover denies fever or chills; however, has developed a cough which is semi productive. He also notes increased swelling of his lower extremities. He also admits to orthopnea and experiences shortness of breath while lying flat. Pain management has been suboptimal during his last admission, increased fentanyl to 200 mcg topically q. 72 hours. Most of today's discussion will center around a palliative approach at this juncture. PAST MEDICAL HISTORY: Significant for: 1. Metastatic nonsmall cell lung cancer, pulmonary and osseous mets, chronic pain syndrome. 2. COPD. 3. Obstructive sleep apnea. 4. Hypertension 5. Anxiety/depression. MEDICATIONS PRIOR TO ADMISSION: Include Wellbutrin 200/150 mg alternating dosing, fentanyl patch 200 mcg q. 72 hours, Lasix 20 mg p.o. daily, lisinopril 40 mg p.o. daily, omeprazole 40 mg p.o. daily, prednisone 5 mg p.o. daily, Spiriva HandiHaler 1 capsule inhaled daily. Scheduled p.r.n. include Ativan, Dilaudid and albuterol. ALLERGIES: IV DYE. FAMILY HISTORY: Positive for diabetes mellitus, heart disease. SOCIAL HISTORY: The patient is a reformed smoker. He is and lives with his significant other and nondrinker. REVIEW OF SYSTEMS: CONSTITUTIONAL: Again, significant clinical decline, manifested by malaise, generalized weakness and uncontrolled pain along with nausea and vomiting. SKIN: No rashes or lesions. No history of dermatosis. HEENT: Negative for headaches, lightheadedness or dizziness. No acute visual or hearing deficit. No sinus symptoms, sore throat or dysphagia. LYMPH: No history of lymphoproliferative disease. CARDIAC: Elevated troponin, recently diagnosed acute myocardial infarction. No current angina or palpitations. PULMONARY: Positive for shortness of breath and dyspnea, now oxygen dependent, positive for productive cough. GASTROINTESTINAL: Positive for occasional nausea and vomiting. No current abdominal pain. No diarrhea or constipation. He reports no hematochezia. GENITOURINARY: No history of prostate disease. No hematuria, dysuria, or urinary incontinence. PSYCHIATRIC: Positive for anxiety/depression attributable to his diagnosis and terminal state. ENDOCRINE: Negative for diabetes or thyroid disease. NEUROLOGIC: Negative for seizure, stroke, or migraine headache. HEMATOLOGIC: Cytopenias attributable to previous and ongoing chemotherapy. PHYSICAL EXAMINATION: GENERAL: Very pleasant 66-year-old in no acute distress. VITAL SIGNS: Temperature 37, pulse 94, respirations 18, blood pressure 113/64. SKIN: Warm, dry, noncyanotic without petechia, rash or ecchymosis. HEAD: Atraumatic, normocephalic. EYES: PERRLA, EOMI. Sclerae nonicteric. Nares patent. Throat clear. Tongue midline. Mucous membranes are moist. NECK: Supple. LYMPH: No cervical, supraclavicular, or axillary palpable nodes. HEART: Regular rate and rhythm. No clicks, rubs, murmurs or gallops. LUNGS: Diminished breath sounds in the posterior bases. No wheezing or rhonchi appreciated. ABDOMEN: Soft, nontender, nondistended without palpable hepatosplenomegaly. EXTREMITIES: No calf tenderness or swelling. No clubbing, cyanosis or edema. MUSCULOSKELETAL: Strength and pulses are equal. NEUROLOGICALLY: He is awake, alert and oriented x3. Cranial nerves II-XII are intact. No gross motor or sensory deficits are noted. LABORATORY DATA: WBC count 7580, hemoglobin 10.3, platelet count 185,000. Sodium 135, potassium 4.2, chloride 98, carbon dioxide 31, creatinine 0.74. BUN 16. Troponin remains elevated at 3.71. RADIOGRAPHIC DATA: Chest x-ray done on admission reveals a left upper lobe dominant mass, subtle reticular nodular interstitial thickening, which likely corresponds to known pulmonary mets. IMPRESSION: 1. Generalized weakness/decline. 2. Elevated troponin. 3. Metastatic nonsmall cell lung cancer. 4. Chronic obstructive pulmonary disease. 5. Anxiety/depression. PLAN: In summary, Grover is a pleasant 66-year-old gentleman well known to me, currently under my care with metastatic nonsmall cell lung cancer. Grover is now in end stages of his disease. Unfortunately, his cancer has been refractory to all treatments up to present. He has now been hospitalized several times over the past couple of weeks. He understands the terminal nature of his disease and at this point he is seriously considering hospice care. Most of today's discussion centered around a palliative approach. Engaged in discussion specifically what outpatient hospice can offer him. He understands at this point there is more risk to proceeding with further chemotherapy. He expressed desire to return home as long as he can be comfortable. I also discussed his code status and strongly encouraged him to establish DNR/DNI status. Based on his presentation, I believe the focus should be pain, anxiety, and nutritional management. He may very well require home O2 as well. Grover has agreed to have case management begin discussions regarding outpatient hospice. I have nothing further to add at this point, but would be more than happy to help out with outpatient hospice orders should Grover and his family come to that conclusion. Thank you very much for allowing me to participate in his care. If you have any questions or concerns, feel free to contact me at any time.
[2016-12-26] MEDS: BuPROPion SR 150 MG TABCR PO SCH (10:55)
[2016-12-26] MEDS ORDERED: FENTANYL 25 MCG/HR TDSY TD SCH (11:05)
--- NOTE | 2016-12-26 11:50 | Palliative Care Consultation ---
Consultation Date of Consultation: Dec 26, 2016. Requesting Physician: Camryn Sanrda PA-C Attending Physician: Dr. Ngo Reason for Consultation: Goals of care, hospice History of Present Illness This 66 year old male patient with PMH metastatic non-small cell lung carcinoma and others listed below, presented to the ED yesterday with increased SOB, cough , weakness, and decreased appetite. History obtained some from patient but mostly from record. Mr. Mello presented to [facility] back in June 2015 with c/o dyspnea with a history of cigarette smoking. He was found to have NSCLC, started chemotherapy in September 2015. Apparently maintenance Avastin was stopped in April 2016 due to proteinuria. On follow-up PET/CT scan there were mets to C-spine and right humerus for which he underwent palliative radiation. This was completed in October 2016. Patient was admitted to hospital from 12/09-12/14/16 with fever of unknown origin. He had extensive workup including blood cultures, C. diff, UA, CT for PE, and echo for endocarditis/vegetation which was all negative. He did have a new murmur which could be a very rare side effect of the Opdivo he has been receiving under Dr. Denise's care. Last chemo was 12/19/16, last radiation was 12/21/16. CTA chest on 12/11/16 showed progression of metastatic disease with increased size of left upper lobe mass and increased mediastinal and hilar lymphadenopathy, new T3 mets and emphysema. MRI of T- spine on 12/13/16, showed multiple mets in lower cervical thoracic and lumbar spine. Venous doppler negative for DVT bilaterally. During this current admission, patient's troponin is elevated at 3.6-3.7, EKG apparently consistent with possible pericarditis/myocarditis (cardiology following and started colchicine), and echo again negative for any significant change from a couple weeks ago. Dr. Denise saw patient in hospital today and is recommending palliative /hospice care and to focus on patient's comfort/quality of life. Palliative care consulted to assist with establishing goals of care. I met with patient in room 218. He is awake, alert and oriented x4, in no apparent distress, but is tearful. His pain is currently, "pretty good," but left side/LUQ/rib pain is 7-8/10 at times. He has a 150mcg/hr fentanyl patch on , takes hydromorphone 4mg PO Q4h PRN pain but falls behind on dose scheduling. Pain is good after the pain medicine "kicks in" but pain is severe when dose wears off. He occasionally has nausea, but this was mostly related to his Opdivo treatments. He has mild nausea on/off now, but no vomiting. Has decreased appetite, moves bowels mostly every day and uses Mirilax only as needed. Has not had fever recently. Patient's goal is to get home, where he lives with his daughter Cristina, and to receive hospice care. He is familiar with hospice as his was on the service just a year ago until she . He is requesting to have full conversation, including POLST form completion, when his daughter Cristina is able to be present. I spoke with Cristina, we will meet at 1pm today. Past Medical/Surgical History Medical History: Metastatic lung cancer Chronic pain COPD VALENTIN HTN depression Social History Smoking Status: Former Smoker History of Alcohol Use: Yes (Occasional.) Marital Status: Housing Status: lives with significant other Occupation Status: retired Review of Systems Constitutional: + weakness, No fever ENT: No trouble swallowing Respiratory: + cough, + wheezing (occasional), + dyspnea on exertion, + problem reported (chest wall pain) Cardiac: + edema, No chest pain Abdomen: + nausea, + constipation (occasional), No pain, No vomiting, No diarrhea Psychiatric: + problem reported (tearful, sad), No anxiety Allergies Coded Allergies: Iodinated Diagnostic Agents (Verified Adverse Reaction, Intermediate, Muscle cramping - cardiac stress test dye, 12/25/16) Medications Current Inpatient Medications Medications (Trade) Dose Ordered Sig/Tila Route Start Time Stop Time Status Last Admin Dose Admin Acetaminophen (Tylenol Tab) 650 mg Q4H PRN PO 12/25/16 15:30 01/24/17 15:29 Al Hydrox/Mg Hydrox/Simethicone (Maalox Max Susp) 15 ml Q4H PRN PO 12/25/16 15:30 01/24/17 15:29 Magnesium Hydroxide (Milk Of Magnesia Susp) 30 ml Q12H PRN PO 12/25/16 15:30 01/24/17 15:29 Ondansetron HCl (Zofran Inj) 4 mg Q6H PRN IV 12/25/16 15:30 01/24/17 15:29 12/25/16 23:10 4 MG Nitroglycerin (Nitrostat Tab) 0.4 mg UD PRN SL 12/25/16 15:30 01/24/17 15:29 Morphine Sulfate (MoRPHine SULFATE INJ) 2 mg Q30M PRN IV 12/25/16 15:30 01/08/17 15:29 12/26/16 08:39 2 MG Aspirin (Ecotrin Tab) 81 mg QAM PO 12/26/16 09:00 01/25/17 08:59 12/26/16 08:26 81 MG Polyethylene (Miralax Powder Packet) 17 gm DAILY PRN PO 12/25/16 15:30 01/24/17 15:29 Budesonide/ Formoterol Fumarate (Symbicort 160/ 4.5 Inh) 2 puffs BID INH 12/25/16 21:00 01/24/17 20:59 12/26/16 08:26 2 PUFFS Bupropion HCl (Wellbutrin-Sr Tab) 150 mg DAILY@1200 PO 12/26/16 12:00 01/25/17 11:59 12/26/16 10:55 150 MG Bupropion HCl (Wellbutrin-Sr Tab) 200 mg DAILY PO 12/26/16 09:00 01/25/17 08:59 12/26/16 08:27 200 MG Fentanyl (Duragesic Patch) 100 mcg Q3D@0900 TD 12/26/16 09:00 01/09/17 08:59 12/26/16 08:32 100 MCG Furosemide (Lasix Tab) 20 mg QAM PO 12/26/16 09:00 01/25/17 08:59 12/26/16 08:26 20 MG Hydromorphone HCl (Dilaudid Tab) 4 mg Q3H PRN PO 12/25/16 15:30 01/08/17 15:29 12/26/16 10:55 4 MG Lisinopril (Zestril Tab) 40 mg QAM PO 12/26/16 09:00 01/25/17 08:59 12/26/16 08:26 40 MG Lorazepam (Ativan Tab) 1 mg Q6H PRN PO 12/25/16 15:30 01/24/17 15:29 Prednisone (PredniSONE TAB) 5 mg DAILY PO 12/26/16 09:00 01/25/17 08:59 12/26/16 08:27 5 MG Tiotropium [place] (Spiriva Handihaler Inhaler) 1 puff DAILY INH 12/26/16 09:00 01/25/17 08:59 12/26/16 08:26 1 PUFF Albuterol (Ventolin Hfa Inhaler) 1 puffs QID PRN INH 12/25/16 15:30 01/24/17 15:29 Pantoprazole Sodium (Protonix Tab) 40 mg QAM PO 12/26/16 09:00 01/25/17 08:59 12/26/16 08:27 40 MG Heparin Sodium (Porcine) (Heparin Sq 5000 Unit/0.5ml) 5,000 unit Q12 SQ 12/25/16 21:00 01/24/17 20:59 12/26/16 08:28 5,000 UNIT Miscellaneous (Fentanyl Patch Remove & Waste) 1 ea Q3D@0859 N/A 12/26/16 08:59 01/25/17 08:58 12/26/16 08:28 1 EA Miscellaneous Information (Check Fentanyl Patch Placement) 1 ea QS N/A 12/26/16 00:00 01/25/17 00:00 12/26/16 08:24 1 EA Miscellaneous (Fentanyl Patch Remove & Waste) 1 ea Q3D@0859 N/A 12/26/16 08:59 12/29/16 09:00 12/26/16 08:29 1 EA Fentanyl (Duragesic Patch) 75 mcg Q3D@0900 TD 12/29/16 09:00 01/09/17 08:59 Fentanyl (Duragesic Patch) 25 mcg TODAY@1105 TD 12/26/16 11:05 12/26/16 18:00 12/26/16 11:13 25 MCG Miscellaneous (Fentanyl Patch Remove & Waste) 1 ea TODAY@0859 N/A 12/29/16 08:59 12/29/16 09:00 Miscellaneous (Fentanyl Patch Remove & Waste) 1 ea Q3D@0859 N/A 01/01/17 08:59 01/31/17 08:58 Physical Exam Date Time Temp Pulse Resp B/P (MAP) Pulse Ox O2 Delivery O2 Flow Rate FiO2 12/26/16 08:00 Room Air 12/26/16 07:50 37.0 94 18 113/64 (80) 93 Room Air 12/26/16 04:00 97 Nasal Cannula 2.0 12/26/16 03:06 37.1 81 19 107/68 (81) 97 Nasal Cannula 2.0 12/25/16 23:59 97 Nasal Cannula 2.0 12/25/16 23:50 36.6 80 19 108/65 (79) 97 Nasal Cannula 2.0 12/25/16 20:00 Nasal Cannula 2.0 12/25/16 19:18 37.1 82 20 107/65 (79) 95 Nasal Cannula 2.0 12/25/16 16:32 37.3 82 18 119/73 (88) 96 Nasal Cannula 2.0 12/25/16 16:05 36.9 81 20 119/64 98 Room Air 12/25/16 15:58 81 20 119/64 98 Room Air 12/25/16 13:54 83 18 117/52 98 Room Air 12/25/16 13:42 85 12/25/16 11:55 36.9 96 14 112/70 91 Room Air General Appearance: no apparent distress ENT: hearing grossly normal Neck: supple, no JVD Respiratory: no respiratory distress, no accessory muscle use, + decreased breath sounds (markedly decreased in left lung), + pertinent finding (no wheezing, crackles or rhonchi heard) Cardiovascular: regular rate, rhythm, + normal peripheral pulses Abdomen: normal bowel sounds, non tender, soft Neurologic/Psychiatric: alert, normal mood/affect, oriented x 3, + pertinent finding (tearful) Skin: normal color Laboratory Results Last 24 Hours Test 12/25/16 12:45 12/25/16 12:46 12/25/16 18:29 12/26/16 00:14 White Blood Count 6.68 K/uL Red Blood Count 3.70 M/uL Hemoglobin 10.1 g/dL Hematocrit 33.0 % Mean Corpuscular Volume 89.2 fL Mean Corpuscular Hemoglobin 27.3 pg Mean Corpuscular Hemoglobin Concent 30.6 g/dl Platelet Count 166 K/uL Mean Platelet Volume 8.5 fL Neutrophils (%) (Auto) 90.6 % Lymphocytes (%) (Auto) 4.3 % Monocytes (%) (Auto) 4.5 % Eosinophils (%) (Auto) 0.3 % Basophils (%) (Auto) 0.0 % Neutrophils # (Auto) 6.05 K/uL Lymphocytes # (Auto) 0.29 K/uL Monocytes # (Auto) 0.30 K/uL Eosinophils # (Auto) 0.02 K/uL Basophils # (Auto) 0.00 K/uL RDW Standard Deviation 50.5 fL RDW Coefficient of Variation 15.8 % Immature Granulocyte % (Auto) 0.3 % Immature Granulocyte # (Auto) 0.02 K/uL Erythrocyte Sedimentation Rate 24 mm/hr Prothrombin Time 12.4 SECONDS Prothromb Time International Ratio 1.2 Activated Partial Thromboplast Time 27.6 SECONDS Partial Thromboplastin Ratio 1.1 Sodium Level 133 mmol/L Potassium Level 4.4 mmol/L Chloride Level 98 mmol/L Carbon Dioxide Level 33 mmol/L Anion Gap 2.0 mmol/L Blood Urea Nitrogen 15 mg/dl Creatinine 0.80 mg/dl Est Creatinine Clear Calc Drug Dose 99.3 ml/min Estimated GFR () 109.4 Estimated GFR (Non- 94.4 BUN/Creatinine Ratio 18.2 Random Glucose 120 mg/dl Calcium Level 8.4 mg/dl Magnesium Level 2.3 mg/dl Total Bilirubin 0.7 mg/dl Aspartate Amino Transf (AST/SGOT) 22 U/L Alanine Aminotransferase (ALT/SGPT) 18 U/L Alkaline Phosphatase 75 U/L Total Creatine Kinase 154 U/L Creatine Kinase MB 17.3 ng/ml 10.6 ng/ml 10.3 ng/ml Creatine Kinase MB Ratio 11.2 Troponin I 3.480 ng/ml 3.660 ng/ml 3.650 ng/ml C-Reactive Protein 12.70 mg/dl Pro-B-Type Natriuretic Peptide 1327 pg/ml Total Protein 6.2 gm/dl Albumin 2.4 gm/dl Globulin 3.8 gm/dl Albumin/Globulin Ratio 0.6 Lipase 45 U/L Random Cortisol 29.89 mcg/dl Venous Blood pH 7.44 Venous Blood Partial Pressure CO2 46 mmHg Venous Blood Partial Pressure O2 42 mmHg Venous Blood HCO3 31 mmol/L Venous Blood Oxygen Saturation 75.2 % Venous Blood Base Excess 5.9 mEq/L Test 12/26/16 03:05 12/26/16 06:34 Urine Color DK YELLOW Urine Appearance TURBID Urine pH 5.0 Urine Specific [place] 1.033 Urine Protein TRACE Urine Glucose (UA) NEG Urine Ketones 1+ Urine Occult Blood NEG Urine Nitrite NEG Urine Bilirubin NEG Urine Urobilinogen NEG Urine Leukocyte Esterase NEG Urine WBC (Auto) 10-30 /hpf Urine RBC (Auto) 0-4 /hpf Urine Hyaline Casts (Auto) 10-30 /lpf Urine Epithelial Cells (Auto) >30 /lpf Urine Bacteria (Auto) NEG Urine Renal Epithelial Cells /lpf Urine Crystals CALCIUM OXALATE Urine Pathogenic Casts /lpf Urine Mucus PRESENT White Blood Count 7.58 K/uL Red Blood Count 3.75 M/uL Hemoglobin 10.3 g/dL Hematocrit 33.7 % Mean Corpuscular Volume 89.9 fL Mean Corpuscular Hemoglobin 27.5 pg Mean Corpuscular Hemoglobin Concent 30.6 g/dl RDW Standard Deviation 52.2 fL RDW Coefficient of Variation 15.9 % Platelet Count 185 K/uL Mean Platelet Volume 9.1 fL Sodium Level 135 mmol/L Potassium Level 4.2 mmol/L Chloride Level 98 mmol/L Carbon Dioxide Level 31 mmol/L Anion Gap 6.0 mmol/L Blood Urea Nitrogen 16 mg/dl Creatinine 0.74 mg/dl Est Creatinine Clear Calc Drug Dose 107.4 ml/min Estimated GFR () 113.0 Estimated GFR (Non- 97.5 BUN/Creatinine Ratio 21.9 Random Glucose 113 mg/dl Calcium Level 8.6 mg/dl Creatine Kinase MB 11.1 ng/ml Creatine Kinase MB Ratio Troponin I 3.710 ng/ml Assessment & Plan Palliative Performance Scale: 60 % Problem list: SOB/cough Weakness Decreased appetite Lower extremity edema Metastatic non-small cell lung carcinoma, mets to spine and right humerus Elevated troponin Goals of care (Z51.5) Palliative care recs: -Patient would like to be level 5 DNR. -Plan for home with hospice. Meeting with patient and daughter at 1pm. -Increase fentanyl patching to 175mcg/hr TD Q72h. -Discontinue IV Dilaudid, start patient's home dose of hydromorphone 4mg PO Q4h PRN pain. -We discussed his decreased appetite, which patient feels was from the nausea due to the Opdivo. He was on Marinol in the past which did work for him. Patient states that if his appetite does not increase in the future now that he is done with Opdivo, he will talk with Dr. Denise about restarting the Marinol. -Patient is uncertain if he would like to continue his palliative radiation, so he will need to follow up with radiation oncology upon discharge. -With daughter- Cristina, present in room, and other daughter- George, on phone, we discussed hospice care and POLST form. All questions answered. [facility] can meet with patient tomorrow, I did inform them that oxygen needs to be in home before discharge. -POLST form completed as follows: DNR, limited additional interventions, abx with comfort as the goal, and no artificial hydration/nutrition. Thank you kindly for this consult. I will follow as needed.
[2016-12-26] MEDS: ONDANSETRON INJ 2 MG/ML 2 ML VIAL IV PRN (12:24)
--- NOTE | 2016-12-26 16:39 | Progress Note ---
Subjective Date of Service: Dec 26, 2016. Subjective Pt evaluation today including: conversation w/ patient, physical exam, lab review, conversation w/ intelligence consultant, review of inpatient medication list Pain: moderate PO Intake: poor Voiding: no voiding problems appreciate assistance from Susu Ricketts today, family meeting to discuss hospice patient and daughter would like to pursue hospice, [facility] for services changed code status, POLST completed pain poorly controlled, increase Fentanyl to 175mcg, started PO Dilaudid 4mg PRN poor appetite, ongoing issue appreciate help from Dr. Denise Problem List Medical Problems: (1) Abnormal ECG Status: Acute (2) Cellulitis of shoulder Status: Acute (3) Chest pain Status: Acute (4) Dyspnea Status: Acute (5) Fever Status: Acute (6) Guaiac positive stools Status: Acute (7) Metastatic lung carcinoma Status: Acute (8) Myocarditis Status: Acute (9) NSTEMI (non-ST elevated myocardial infarction) Status: Acute (10) Pericarditis Status: Acute (11) Pleural effusion, left Status: Acute (12) Weakness Status: Acute Review of Systems Constitutional: + weakness, + fatigue Cardiac: + chest pain (left sided) All Other Systems: Reviewed and Negative Medications Current Inpatient Medications Medications (Trade) Dose Ordered Sig/Tila Route Start Time Stop Time Status Last Admin Dose Admin Acetaminophen (Tylenol Tab) 650 mg Q4H PRN PO 12/25/16 15:30 01/24/17 15:29 Al Hydrox/Mg Hydrox/Simethicone (Maalox Max Susp) 15 ml Q4H PRN PO 12/25/16 15:30 01/24/17 15:29 Magnesium Hydroxide (Milk Of Magnesia Susp) 30 ml Q12H PRN PO 12/25/16 15:30 01/24/17 15:29 Ondansetron HCl (Zofran Inj) 4 mg Q6H PRN IV 12/25/16 15:30 01/24/17 15:29 12/26/16 12:24 4 MG Nitroglycerin (Nitrostat Tab) 0.4 mg UD PRN SL 12/25/16 15:30 01/24/17 15:29 Morphine Sulfate (MoRPHine SULFATE INJ) 2 mg Q30M PRN IV 12/25/16 15:30 01/08/17 15:29 12/26/16 08:39 2 MG Aspirin (Ecotrin Tab) 81 mg QAM PO 12/26/16 09:00 01/25/17 08:59 12/26/16 08:26 81 MG Polyethylene (Miralax Powder Packet) 17 gm DAILY PRN PO 12/25/16 15:30 01/24/17 15:29 Budesonide/ Formoterol Fumarate (Symbicort 160/ 4.5 Inh) 2 puffs BID INH 12/25/16 21:00 01/24/17 20:59 12/26/16 08:26 2 PUFFS Bupropion HCl (Wellbutrin-Sr Tab) 150 mg DAILY@1200 PO 12/26/16 12:00 01/25/17 11:59 12/26/16 10:55 150 MG Bupropion HCl (Wellbutrin-Sr Tab) 200 mg DAILY PO 12/26/16 09:00 01/25/17 08:59 12/26/16 08:27 200 MG Fentanyl (Duragesic Patch) 100 mcg Q3D@0900 TD 12/26/16 09:00 01/09/17 08:59 12/26/16 08:32 100 MCG Furosemide (Lasix Tab) 20 mg QAM PO 12/26/16 09:00 01/25/17 08:59 12/26/16 08:26 20 MG Hydromorphone HCl (Dilaudid Tab) 4 mg Q3H PRN PO 12/25/16 15:30 01/08/17 15:29 12/26/16 15:07 4 MG Lisinopril (Zestril Tab) 40 mg QAM PO 12/26/16 09:00 01/25/17 08:59 12/26/16 08:26 40 MG Lorazepam (Ativan Tab) 1 mg Q6H PRN PO 12/25/16 15:30 01/24/17 15:29 Prednisone (PredniSONE TAB) 5 mg DAILY PO 12/26/16 09:00 01/25/17 08:59 12/26/16 08:27 5 MG Tiotropium [place] (Spiriva Handihaler Inhaler) 1 puff DAILY INH 12/26/16 09:00 01/25/17 08:59 12/26/16 08:26 1 PUFF Albuterol (Ventolin Hfa Inhaler) 1 puffs QID PRN INH 12/25/16 15:30 01/24/17 15:29 Pantoprazole Sodium (Protonix Tab) 40 mg QAM PO 12/26/16 09:00 01/25/17 08:59 12/26/16 08:27 40 MG Heparin Sodium (Porcine) (Heparin Sq 5000 Unit/0.5ml) 5,000 unit Q12 SQ 12/25/16 21:00 01/24/17 20:59 12/26/16 08:28 5,000 UNIT Miscellaneous (Fentanyl Patch Remove & Waste) 1 ea Q3D@0859 N/A 12/26/16 08:59 01/25/17 08:58 12/26/16 08:28 1 EA Miscellaneous Information (Check Fentanyl Patch Placement) 1 ea QS N/A 12/26/16 00:00 01/25/17 00:00 12/26/16 15:07 1 EA Miscellaneous (Fentanyl Patch Remove & Waste) 1 ea Q3D@0859 N/A 12/26/16 08:59 12/29/16 09:00 12/26/16 08:29 1 EA Fentanyl (Duragesic Patch) 75 mcg Q3D@0900 TD 12/29/16 09:00 01/09/17 08:59 Fentanyl (Duragesic Patch) 25 mcg TODAY@1105 TD 12/26/16 11:05 12/26/16 18:00 12/26/16 11:13 25 MCG Miscellaneous (Fentanyl Patch Remove & Waste) 1 ea TODAY@0859 N/A 12/29/16 08:59 12/29/16 09:00 Miscellaneous (Fentanyl Patch Remove & Waste) 1 ea Q3D@0859 N/A 01/01/17 08:59 01/31/17 08:58 Objective Vital Signs Date Time Temp Pulse Resp B/P (MAP) Pulse Ox O2 Delivery O2 Flow Rate FiO2 12/26/16 16:26 Nasal Cannula 2.0 12/26/16 16:21 37.2 92 20 110/65 (80) 91 Nasal Cannula 2.0 12/26/16 16:02 37.1 78 16 98 2.0 12/26/16 15:33 Room Air 12/26/16 15:29 37.1 78 16 101/62 (75) 98 Nasal Cannula 2.0 12/26/16 11:57 36.8 94 18 101/65 (77) 93 12/26/16 11:55 Room Air 12/26/16 11:14 100 Nasal Cannula 2.0 12/26/16 08:00 Room Air 12/26/16 07:50 37.0 94 18 113/64 (80) 93 Room Air 12/26/16 04:00 97 Nasal Cannula 2.0 12/26/16 03:06 37.1 81 19 107/68 (81) 97 Nasal Cannula 2.0 12/25/16 23:59 97 Nasal Cannula 2.0 12/25/16 23:50 36.6 80 19 108/65 (79) 97 Nasal Cannula 2.0 12/25/16 20:00 Nasal Cannula 2.0 12/25/16 19:18 37.1 82 20 107/65 (79) 95 Nasal Cannula 2.0 Physical Exam General Appearance: no apparent distress, + thin Neck: supple, no adenopathy, no JVD, trachea midline Respiratory/Chest: lungs clear, normal breath sounds, no respiratory distress, no accessory muscle use, + pertinent finding (left sided) Cardiovascular: regular rate, rhythm, no edema, no gallop, no JVD, no murmur Abdomen: normal bowel sounds, non tender, soft, no organomegaly Extremities: normal inspection, no pedal edema, no calf tenderness, pelvis stable, + pertinent finding (thoracic spine tender to palpation) Neurologic/Psychiatric: senior oracle developer II-XII nml as tested, no motor/sensory deficits, alert, normal mood/affect, oriented x 3 Skin: normal color, warm/dry, no rash Laboratory Results Last 24 Hours Test 12/25/16 18:29 12/26/16 00:14 12/26/16 03:05 12/26/16 06:34 Creatine Kinase MB 10.6 ng/ml 10.3 ng/ml 11.1 ng/ml Creatine Kinase MB Ratio Troponin I 3.660 ng/ml 3.650 ng/ml 3.710 ng/ml Urine Color DK YELLOW Urine Appearance TURBID Urine pH 5.0 Urine Specific [place] 1.033 Urine Protein TRACE Urine Glucose (UA) NEG Urine Ketones 1+ Urine Occult Blood NEG Urine Nitrite NEG Urine Bilirubin NEG Urine Urobilinogen NEG Urine Leukocyte Esterase NEG Urine WBC (Auto) 10-30 /hpf Urine RBC (Auto) 0-4 /hpf Urine Hyaline Casts (Auto) 10-30 /lpf Urine Epithelial Cells (Auto) >30 /lpf Urine Bacteria (Auto) NEG Urine Renal Epithelial Cells /lpf Urine Crystals CALCIUM OXALATE Urine Pathogenic Casts /lpf Urine Mucus PRESENT White Blood Count 7.58 K/uL Red Blood Count 3.75 M/uL Hemoglobin 10.3 g/dL Hematocrit 33.7 % Mean Corpuscular Volume 89.9 fL Mean Corpuscular Hemoglobin 27.5 pg Mean Corpuscular Hemoglobin Concent 30.6 g/dl RDW Standard Deviation 52.2 fL RDW Coefficient of Variation 15.9 % Platelet Count 185 K/uL Mean Platelet Volume 9.1 fL Sodium Level 135 mmol/L Potassium Level 4.2 mmol/L Chloride Level 98 mmol/L Carbon Dioxide Level 31 mmol/L Anion Gap 6.0 mmol/L Blood Urea Nitrogen 16 mg/dl Creatinine 0.74 mg/dl Est Creatinine Clear Calc Drug Dose 107.4 ml/min Estimated GFR () 113.0 Estimated GFR (Non- 97.5 BUN/Creatinine Ratio 21.9 Random Glucose 113 mg/dl Calcium Level 8.6 mg/dl Assessment and Plan Patient is a pleasant 66 y/o male, with PMHx of metastatic non-small cell lung carcinoma, COPD, chronic pain, HTN, and depression, who presented to the ED because of worsening cough, SOB, fatigue, nausea/vomiting, and decreased appetite x a few days. Metastatic lung carcinoma, COPD, VALENTIN- follows w/ Dr. Denise: - Consult palliative care per patient/family wishes: will pursue hospice, plan for [facility], changed to DNR, POLST completed today - Continue ProAir, Symbicort, Spiriva, Ativan PRN - O2 protocol, wean as tolerated- currently does not have O2 supplement at home - daughter states they are in the process of getting it - CPAP HS - unsure if he wants any further palliative radiation Elevated troponin with ST elevation: not a STEMI per cardiology, likely pericarditis no further work up, no invasive testing pain control HTN: Continue Lisinopril 40 mg daily Chronic anemia- STABLE Chronic pain: Continue Fentanyl patch increased to 175mcg, Dilaudid 4 mg PO q3 hrs PRN, Prednisone 5 mg daily Depression: Continue Wellbutrin 350 mg daily GI prophylaxis: Protonix DVT prophylaxis: Heparin SQ Code Status: DNR Dispo: home to hospice once arranged, hopeful for tomorrow transfer off tele today
[2016-12-27] VITALS: BP 110/66; PULSE 87; TEMP 36.8; O2SAT 94
[2016-12-27] MEDS ORDERED: NURSING DECISION MEDICATION ORDER SCH (00:15)
[2016-12-27] MEDS: CHECK FENTANYL PATCH PLACEMENT SCH ×2 (00:20→07:44)
[2016-12-27] MEDS ORDERED: COUGH DROP (SUGAR FREE) LOZ 24 LOZ/1 BOX PO PRN (00:30)
[2016-12-27] MEDS: HYDROmorphone HCL 2 MG TAB PO PRN ×5 (02:33→15:59)
[2016-12-27 04:00] VITALS: BP 120/69; PULSE 80; TEMP 36.8; O2SAT 99
[2016-12-27 05:42] LABS: HEMATOCRIT 30.3 % (42-52); MEAN CELL VOLUME 88.3 fL (80-100); MEAN CORPUSCULAR HEMOGLOBIN 28.3 pg (25-34); MEAN PLATELET VOLUME 8.8 fL (7.4-10.4); PLATELET COUNT 147 K/uL (130-400); RED BLOOD COUNT 3.43 M/uL (4.7-6.1); WHITE BLOOD COUNT 5.62 K/uL (4.8-10.8)
[2016-12-27 06:17] LABS: BUN/CREATININE RATIO 22.5 (10-20); CALCIUM 8.2 mg/dl (8.5-10.1); CREATININE 0.75 mg/dl (0.60-1.40); POTASSIUM 3.9 mmol/L (3.5-5.1)
[2016-12-27 07:30] VITALS: BP 105/65; PULSE 80; TEMP 36.9; O2SAT 98
[2016-12-27] MEDS: BUDESONIDE/FORMOTEROL FUMARATE 160/4.5 60 PUFFS/INHALER INH SCH (07:44)
[2016-12-27] MEDS: TIOTROPIUM BROMIDE 5 PUFF/90 MCG INH INH SCH (07:45)
[2016-12-27] MEDS: LISINOPRIL 40 MG TAB PO SCH (07:46)
[2016-12-27] MEDS: FUROSEMIDE 20 MG TAB PO SCH (07:47)
[2016-12-27] MEDS: ASPIRIN 81 MG ECTAB PO SCH (07:47)
[2016-12-27] MEDS: BuPROPion SR 100 MG TABCR PO SCH (07:47)
[2016-12-27] MEDS: PANTOprazole SOD 40 MG TAB PO SCH (07:47)
[2016-12-27] MEDS: HEPARIN SOD 5000 UNIT/0.5 ML CARP SQ SCH (07:50)
--- NOTE | 2016-12-27 08:46 | HEME/ONC PROGRESS NOTE ---
DATE: 12/27/2016 DATE OF SERVICE: 12/27/2016 DIAGNOSES: 1. Generalized weakness/decline. 2. Elevated troponin. 3. Metastatic nonsmall cell lung cancer. 4. Chronic obstructive pulmonary disease. 5. Chronic pain syndrome. 6. Anxiety/depression. SUBJECTIVE: Grover was seen and examined today at bedside. His spirits have actually improved a little bit after discussing end of life care with palliative team. Unfortunately his disease has been refractory to all treatments to date. He has had considerable skeletal pain which has been difficult to control. I engaged in discussion regarding hospice yesterday with Grover. He is amenable and has changed his code status. He is also engaged his family members and according to Grover are also in agreeance. Again, clinically he seems to be doing much better today. His appetite is still marginal and is requesting Marinol to stimulate appetite. Nursing reports no overnight difficulties. PHYSICAL EXAMINATION: GENERAL: He is in no acute distress. VITAL SIGNS: Temperature 36.9, pulse 80, respirations 20, blood pressure 105/65. SKIN: Pale, warm, dry, noncyanotic. HEAD, EYES, EARS, NOSE, AND THROAT: Oral mucosa without erythema or ulceration. NECK: Supple. HEART: Regular rate and rhythm. No clicks, rubs, murmurs or gallops. LUNGS: Diminished breath sounds in the posterior bases. ABDOMEN: Soft, nontender, nondistended. EXTREMITIES: No clubbing, cyanosis or edema. NEUROLOGIC: Grossly intact. LABORATORY DATA: WBC count 5,620, hemoglobin 9.7, platelet count 147,000. Sodium 134, potassium 3.9, chloride 98, carbon dioxide 34, creatinine 0.75, BUN 17. IMPRESSION: 1. Declining performance status. 2. Metastatic nonsmall cell lung cancer. 3. Chronic obstructive pulmonary disease. 4. Chronic pain syndrome. 5. Anxiety/depression. PLAN: I engaged Grover at bedside again today. He has decided to pursue outpatient hospice, for which I readily agree. The focus should now be on pain and anxiety management along with nutritional support. Grover inquired about Marinol I have no reservations about placing him back on the agent to stimulate appetite. He has decided to go with home nursing hospice. I anticipate he will be discharged in the next 24-48 hours. Grover has canceled all further chemo appointments at the [facility]. With all my end of life patients I do offer monthly pain and nutritional assessments. I would be more than happy to assist Grover as his hospice physician. Thank you for assisting me in the care of this very pleasant gentleman.
--- NOTE | 2016-12-27 10:33 | Clinical Documentation Query ---
CLINICAL DOCUMENTATION QUERY Dr. DIAZ, In your clinical opinion is this patient being managed for: ( x ) Severe protein-calorie malnutrition ( ) Not Agree ( ) Other explanation of clinical findings (Please Explain) ( ) Unable to determine (Please Define) ( ) Need to Discuss The medical record reflects the following clinical findings, treatment, and risk factors. Clinical Indicators: 66 yo male presenting with pericarditis with history of metastatic NSCLC. Pt has had a 13.2 kg wt loss (13%) since November 28, 2016. Dietary note indicates pt is eating </= 25% of meals. Treatment: dietary consult, liberalize diet, hospice care, restart marinol per oncologist documentation, outpatient pain and nutritional assessments by hospice physician Risk Factors: end stage cancer Chronic Severe Malnutrition Criteria: (2 criteria needed) Energy intake: <75% of estimated energy requirement for > 1 month Wt loss: >5% in 1 month, > 7.5% in 3 months, >10% in 6 months, >20% in 1 year Body fat: severe loss of SQ fat from the orbits, triceps or fat overlying the ribs Muscle mass: severe muscle wasting at the temples, clavicles, shoulders, interosseous spaces, scapula, thigh, calf Fluid accumulation: severe localized or generalized edema of the extremities, vulva, scrotum-wt loss may be masked by edema Please clarify and document your clinical opinion in the progress notes and discharge summary. Terms such as "probable", "suspected", "likely", "questionable", "possible", or "still to be ruled out" are acceptable. IF IN AGREEMENT, YOU MUST DOCUMENT ABOVE DIAGNOSTIC STATEMENT IN DAILY PROGRESS NOTES AND DISCHARGE SUMMARY. This document is not part of the patient's record. Thank You, Tonya Page, RN [phone]
[2016-12-27] MEDS: BuPROPion SR 150 MG TABCR PO SCH (11:33)
[2016-12-27] MEDS ORDERED: METOCLOPRAMIDE HCL INJ 5 MG/ML 2 ML VIAL IV ONE (12:30)
[2016-12-27] MEDS ORDERED: METO-157 PO (14:12)
[2016-12-27] MEDS ORDERED: DRGTP75 TD (14:12)
[2016-12-27] MEDS ORDERED: HYDR4TAB78 PO (14:12)
--- NOTE | 2016-12-27 14:19 | Discharge Instructions ---
Discharge Instructions Date of Service Dec 27, 2016. Admission Reason for Admission: Metastatic lung cancer, intractable pain Discharge Discharge Diagnosis / Problem: Metastatic lung cancer, intractable pain Discharge Goals Goal(s): Decrease discomfort, Specific goals (hospice care) Activity Recommendations Activity Limitations: resume your previous activity Lifting Limitations: none Exercise/Sports Limitations: as tolerated May Resume Sexual Activity: when tolerated Shower/Bathe: no limitations Driving or Machine Use: no driving . Instructions / Follow-Up Instructions / Follow-Up Medications: - FENTANYL PATCH: total dose increased to 175mcg, apply 100mcg and 75mcg patch every three days - DILAUDID: dose increased to 8mg every 3 hours, can take two 4mg tablets, new script given - REGLAN: trial of this medication to improve nausea control, take prior to meals, can get second prescription if Reglan works for you Oxygen: use continuous for relief of shortness of breath Follow up with home hospice Can follow up this month with Dr. Denise for pain assessment and nutritional assessment Current Hospital Diet Patient's current hospital diet: Regular Diet Discharge Diet Recommended Diet: Regular Diet Procedures Procedures Performed: none Pending Studies Studies pending at discharge: no Medical Emergencies . Who to Call and When: Medical Emergencies: If at any time you feel your situation is an emergency, please call 911 immediately. . Non-Emergent Contact Non-Emergency issues call your: Oncologist Call Non-Emergent contact if: you have any medication questions . . "Provider Documentation" section prepared by Angelo Ngo. . VTE Core Measure Inpt VTE Proph given/why not?: Unfractionated heparin ROSARIO, Yenny Thapa, S[facility] 's [place] Drug Monitoring Program Search Results: no issues identified
[2016-12-27 14:26] VITALS: BP 105/65; PULSE 80; TEMP 36.9; O2SAT 98
--- NOTE | 2016-12-28 09:24 | Discharge Summary ---
Discharge Summary Date of Service Dec 28, 2016. Discharge Summary Admission Date: Dec 25, 2016 at 15:42 Discharge Date: Dec 27, 2016 Discharge Disposition: Home with services Principal Diagnosis: Metastatic NSCLC Problems/Secondary Diagnoses: Intractable pain from bone mets Dyspnea Severe protein-calorie malnutrition Elevated troponin Possible pericarditis Procedures: none Consultations: Cardiology Oncology Palliative care Medication Reconciliation New Medications: Metoclopramide (Reglan) 10 Mg Tab 10 MG PO TIDM, #30 TAB take 30 minutes prior to meals Fentanyl (Duragesic) 75 Mcg Tdsy 75 MCG TD Q3D@0900, #10 PATCH 0 Refills Changed Medications: Hydromorphone Hcl (Dilaudid) 4 Mg Tab 2 TAB PO Q3H PRN for Pain, #100 TAB 0 Refills (Changed from: 1 TAB; 45) Continued Medications: Albuterol Sulfate (Proair Respiclick) 108 Mcg/Act Aer 1 PUFF INH QID PRN for SOB/Wheezing Budesonide/Formoterol Fumarate (Symbicort 160/4.5 Inhaler) 120 Puffs/ Aero 2 PUFFS INH BID, INHALER Bupropion (Wellbutrin Sr) 200 Mg Ertab 200 MG PO AM, TAB Bupropion (Wellbutrin Sr) 150 Mg Ertab 150 MG PO NOON, TAB Fentanyl (Fentanyl) 100 Mcg Tdsy 1 PATCH TD Q3D, #10 Furosemide (Lasix) 20 Mg Tab 20 MG PO QAM, TAB Lisinopril (Zestril) 40 Mg Tab 40 MG PO QAM, #30 TAB 0 Refills Lorazepam (Ativan) 1 Mg Tab 1 MG PO Q6H PRN for Anxiety/Agitation, #30 TAB 0 Refills Omeprazole (Prilosec) 40 Mg Cap 1 CAP PO QAM for 30 Days, #30 CAP 11 Refills Prednisone (Prednisone) 5 Mg Tab 5 MG PO DAILY, #30 TAB 2 Refills Tiotropium [place] (Spiriva Handihaler) 30 Puff/540 Mcg Aerp 1 CAP INH DAILY Discontinued Medications: Fentanyl (Duragesic) 50 Mcg/Hr Dis 50 MCG TOP Q72H, #10 PATCH 0 Refills total dose 150mcg (100mcg patch + 50mcg patch) Discharge Exam Patient was having some pain in the morning, Dilaudid increased to 8mg q3 and his pain was much better controlled. Did not eat well at breakfast due to nausea. Tried some Reglan prior to lunch and he was able to eat much better. Home oxygen at 2L was arranged by CM. Home hospice set up with [facility]. Patient really wanted to go home. Since his pain was adequately controlled on Fentanyl and Dilaudid PO, he was sent home. Review of Systems: Constitutional: No fever, No chills, No sweats, No weight loss, No weakness , No fatigue, No problem reported Eyes: No worsening of vision, No eye pain, No redness, No discharge, No diplopia, No problem reported ENT: No hearing loss, No unusual epistaxis, No nasal symptoms, No sore throat, No tinnitus, No dental problems, No trouble swallowing, No problem reported Respiratory: No cough, No sputum, No wheezing, No shortness of breath, No dyspnea on exertion, No dyspnea at rest, No hemoptysis, No problem reported Cardiovascular: + chest pain, No orthopnea, No PND, No edema, No claudication, No palpitations, No problem reported Abdomen: + nausea, + vomiting, No pain, No diarrhea, No constipation, No GI bleeding, No problem reported Musculoskeletal: + joint pain (thoracic spine, left rib pain), No muscle pain, No swelling, No calf pain, No problem reported Genitourinary - Male: No dysuria, No urinary frequency, No urinary urgency Neurologic: No memory loss, No paralysis, No weakness, No numbness/tingling , No vertigo, No balance problems, No problem reported Psychiatric: No depression symptoms, No anhedonism, No anxiety, No insomnia , No substance abuse, No problem reported Endocrine: No fatigue, No excessive thirst, No excessive urination, No problem reported Hematologic / Lymphatic: No abnormal bleeding/bruising, No clotting problems , No swollen lymph nodes, No night sweats, No problem reported Integumentary: No rash, No itch, No new/changing skin lesions, No color change, No bleeding, No problem reported Physical Exam: General Appearance: WD/WN, no apparent distress Eyes: normal inspection, EOMI, sclerae normal ENT: normal ENT inspection, hearing grossly normal, pharynx normal Neck: supple, no adenopathy, no JVD, trachea midline Respiratory/Chest: lungs clear, normal breath sounds, no respiratory distress, no accessory muscle use, + pertinent finding (left ) Cardiovascular: regular rate, rhythm, no edema, no gallop, no JVD, no murmur , normal peripheral pulses Abdomen / GI: normal bowel sounds, non tender, soft, no organomegaly Extremities: normal inspection, no calf tenderness, normal capillary refill , no pedal edema, normal range of motion, pelvis stable Neurologic/Psychiatric: pediatric ophthalmologist II-XII nml as tested, no motor/sensory deficits , alert, normal mood/affect, normal reflexes, oriented x 3 Skin: normal color, warm/dry, no rash Lymphatic: no adenopathy Hospital Course Patient is a pleasant 66 y/o male, with PMHx of metastatic non-small cell lung carcinoma, COPD, chronic pain, HTN, and depression, who presented to the ED because of worsening cough, SOB, fatigue, nausea/vomiting, and decreased appetite x a few days. Metastatic lung carcinoma, COPD, VALENTIN- follows w/ Dr. Denise: - appreciate palliative care consult, patient DNR, POLST completed, go home on hospice - Continue ProAir, Symbicort, Spiriva, Ativan PRN - Oxygen arranged for home - CPAP HS - unsure if he wants any further palliative radiation - pain control with Fentanyl 175mcg q 3 days and Dilaudid 8mg PO q3 - will follow up with Dr. Avery as needed for pain assessment and nutrition Elevated troponin with ST elevation: not a STEMI per cardiology, likely pericarditis no further work up, no invasive testing pain control Severe protein-calorie malnutrition main issue is nausea/vomiting trial of Reglan, responded well inpatient less concern for detrimental side effects given hospice continue Prednisone 5mg daily HTN: Continue Lisinopril 40 mg daily Chronic anemia- STABLE Depression: Continue Wellbutrin 350 mg daily GI prophylaxis: Protonix DVT prophylaxis: Heparin SQ Code Status: DNR Dispo: home on hospice with [facility] Total Time Spent: Greater than 30 minutes This includes examination of the patient, discharge planning, medication reconciliation, and communication with other providers. Discharge Instructions Please refer to the electronic Patient Visit Report (Discharge Instructions) for additional information. Follow-Up home hospice Dr. Denise Additional Copies To Lesa Jimenez D.O.; Deni Denise D.O.
[2016-12-29] MEDS ORDERED: FENTANYL PATCH REMOVE & WASTE SCH (08:59)
[2016-12-29] MEDS ORDERED: FENTANYL 75 MCG/HR TDSY TD SCH (09:00)
[2017-01-01] MEDS ORDERED: FENTANYL PATCH REMOVE & WASTE SCH (08:59)
== END 2016-12-27 16:00 | disposition hospice, home (50) | DRG 314 ==
LOC: C.EDB 11:33 → C.2T 15:42 → ENRESERV 15:57 → CANRESERV 12-26 15:31 → ENRESERV 12-26 16:05 → C.MED 12-26 16:20
PROVIDERS: ADMIT Internal Medicine; ATTEND Internal Medicine
DX: I31.9 Disease of pericardium, unspecified (principal); E43 Unspecified severe protein-calorie malnutrition; C34.90 Malignant neoplasm of unspecified part of unspecified bronchus or lung; C79.51 Secondary malignant neoplasm of bone; I50.1 Left ventricular failure, unspecified; G89.4 Chronic pain syndrome; Z51.5 Encounter for palliative care; Z66 Do not resuscitate; F32.9 Major depressive disorder, single episode, unspecified; F41.9 Anxiety disorder, unspecified; J44.9 Chronic obstructive pulmonary disease, unspecified; G47.33 Obstructive sleep apnea (adult) (pediatric); I11.0 Hypertensive heart disease with heart failure; R01.1 Cardiac murmur, unspecified; R06.00 Dyspnea, unspecified; D53.9 Nutritional anemia, unspecified; R79.89 Other specified abnormal findings of blood chemistry; R11.0 Nausea; R94.31 Abnormal electrocardiogram [ECG] [EKG]; Z82.49 Family history of ischemic heart disease and other diseases of the circulatory system; Z92.3 Personal history of irradiation; Z99.89 Dependence on other enabling machines and devices; Z92.21 Personal history of antineoplastic chemotherapy; Z87.891 Personal history of nicotine dependence; Z79.899 Other long term (current) drug therapy; Z79.51 Long term (current) use of inhaled steroids; Z79.891 Long term (current) use of opiate analgesic; Z79.52 Long term (current) use of systemic steroids